=== PATIENT | female | born 1970 | race Caucasian/White ===

== ENCOUNTER 2017-09-23 17:13 | Emergency (ER) | payer BC ==
[~2017-09-23] VITALS: Ht 147.3 cm; Wt 90.7 kg
[2017-09-23 17:13] VITALS: BP_SYST 110
[2017-09-23] MEDS ORDERED: NACL 0.9% 1,000 ML IV ONE (17:36)
[2017-09-23] MEDS ORDERED: HYDROmorphone 1 MG INJ. 1 MG/ML AMPUL IM ONE (17:45)
[2017-09-23] MEDS ORDERED: ONDANSETRON HCL 4 MG/2 ML VIAL IVP ONE (17:45)
[2017-09-23 18:35] LABS: MEAN CORPUSCULAR HEMOGLOBIN 30 pg (27-31); MEAN CORPUSCULAR HGB CONC 34 % (32-36); RED CELL DISTRIBUTION WIDTH 14.9 % (9.0-15.0)
[2017-09-23 18:38] LABS: BASOPHILS # (AUTO) 0.2 K/uL (0.0-0.2); BASOPHILS % (AUTO) 1.9 % (0.0-2.0); EOSINOPHILS # (AUTO) 0.3 K/uL (0.0-0.4); HEMATOCRIT 35.3 % (36-48); LYMPHOCYTES # (AUTO) 3.5 K/uL (1.0-5.5); LYMPHOCYTES % (AUTO) 37.5 % (20.5-51.5); MEAN CORPUSCULAR VOLUME 88 fL (79.0-98.0); MONOCYTES # (AUTO) 0.7 K/uL (0.0-1.0); MONOCYTES % (AUTO) 7.5 % (1.7-9.3); NEUTROPHILS # (AUTO) 4.6 K/uL (1.8-7.7); NEUTROPHILS % (AUTO) 50.1 % (40.0-70.0); PLATELET COUNT (AUTO) 423 K/uL (130-430); RED BLOOD CELL COUNT(AUTO) 4.01 MIL/uL (4.2-6.2); WHITE BLOOD COUNT (AUTO) 9.3 K/uL (4.8-10.8)
[2017-09-23 18:42] LABS: CALCIUM 7.8 mg/dL (8.4-11.0); CREATININE 1.01 mg/dL (0.55-1.30); POTASSIUM 4.5 mmol/L (3.5-5.1)
[2017-09-23 18:44] LABS: INR 0.9 (0.8-1.2); PROTHROMBIN TIME 9.4 SECS (9.5-12.5)
[2017-09-23 18:46] LABS: ALBUMIN 3.9 g/dL (3.4-4.8); TOTAL BILIRUBIN 0.3 mg/dL (0.0-1.0)
[2017-09-23] MEDS ORDERED: IOHEXOL 100 ML IV ONE (18:47)
[2017-09-23 18:49] LABS: BILIRUBIN,URINE NEGATIVE (NEGATIVE); BLOOD, URINE TRACE (NEGATIVE); CLARITY/URINE SL CLOUDY (CLEAR); COLOR,URINE YELLOW (YELLOW); GLUCOSE,URINE NEGATIVE (NEGATIVE); KETONES,URINE NEGATIVE (NEGATIVE); LEUKOCYTE ESTERASE ,URINE 1+ (NEGATIVE); NITRITE, URINE POSITIVE (NEGATIVE); PROTEIN URINE NEGATIVE (NEGATIVE); UROBILINOGEN,URINE 0.2 (0.2-1.0)
[2017-09-23 18:54] LABS: BACTERIA,URINE MANY /HPF (None Seen); MUCUS,URINE None Seen /LPF (None Seen); RBC,URINE 0-3 /HPF (0-3); WBC,URINE 20-50 /HPF (0-3)
[2017-09-23] MEDS ORDERED: LEVOFLOXACIN 500 MG/D5W 100 ML IV ONE (19:00)
[2017-09-23] MEDS ORDERED: HYDROmorphone 1 MG INJ. 1 MG/ML AMPUL IVP ONE (19:30)
[2017-09-23 20:41] VITALS: BP_SYST 119
== END 2017-09-23 20:41 | disposition home or self-care (01) ==
LOC: SED 17:13
DX: K40.90 Unilateral inguinal hernia, without obstruction or gangrene, not specified as recurrent (principal); N30.90 Cystitis, unspecified without hematuria; F17.200 Nicotine dependence, unspecified, uncomplicated; Z71.6 Tobacco abuse counseling; Z88.1 Allergy status to other antibiotic agents; Z90.710 Acquired absence of both cervix and uterus
CPT/HCPCS: 36415; 74177; 80053; 81000; 82150; 83605; 83690; 85025; 85610; 85730; 87040; 87086; 87186; 96361; 96365; 96375; 96376; 99285; J1170; J1956; J2405; J7030; Q9967

== ENCOUNTER 2017-10-11 19:37 | Emergency (ER) | payer BC ==
[~2017-10-11] VITALS: Ht 147.3 cm; Wt 90.7 kg
[2017-10-11 19:40] VITALS: BP_SYST 122
[2017-10-11] MEDS: AMOXICILLIN 500 MG CAPSULE PO ONE (20:58)
[2017-10-11] MEDS: DIPHENHYDRAMINE INJ 50 MG/ML VIAL IM ONE (20:59)
[2017-10-11] MEDS: KETOROLAC TROMETHAMINE 30 MG VIAL IM ONE (21:00)
[2017-10-11] MEDS: MORPHINE SULFATE 10 MG/ML VIAL IM ONE (21:01)
[2017-10-11 21:39] VITALS: BP_SYST 125
== END 2017-10-11 21:39 | disposition home or self-care (01) ==
LOC: SED 19:37
DX: L60.0 Ingrowing nail (principal); F17.200 Nicotine dependence, unspecified, uncomplicated; Z71.6 Tobacco abuse counseling; Z88.1 Allergy status to other antibiotic agents
CPT/HCPCS: 96372; 99284; J1200; J1885; J2270

== ENCOUNTER 2017-10-13 12:00 | Emergency (ER) | payer BC ==
[~2017-10-13] VITALS: Ht 147.3 cm; Wt 90.7 kg
[2017-10-13 12:08] VITALS: BP_SYST 131
[2017-10-13] MEDS ORDERED: LIDOCAINE 2%, 20 ML MDV IJ ONE (12:45)
[2017-10-13 13:25] VITALS: BP_SYST 129
== END 2017-10-13 13:25 | disposition home or self-care (01) ==
LOC: SED 12:00
DX: L60.0 Ingrowing nail (principal); L03.032 Cellulitis of left toe; Z88.1 Allergy status to other antibiotic agents
CPT/HCPCS: 11730; 99283; J2001

== ENCOUNTER 2017-11-14 19:41 | Emergency (ER) | payer BC ==
[~2017-11-14] VITALS: Ht 147.3 cm; Wt 95.3 kg
[2017-11-14 20:27] VITALS: BP_SYST 137
[2017-11-14] MEDS ORDERED: ALBMDI INH (20:33)
--- NOTE | 2017-11-14 20:37 | NUR ---
PT TO WAITING ROOM WITH FAMILY, STABLE
--- NOTE | 2017-11-14 21:19 | NUR ---
pt ambulatory to bed 4
--- NOTE | 2017-11-14 21:20 | NUR ---
Patient AAOx4, ambulatory. Patient states having "redness to right hand" after a surgery that occurred approximately 2-3 weeks ago. Patient also states the antibiotics she was given "made her tongue slightly swell". Patient denies SOB. Redness noted to base of anterior right hand. Patient denies any other complaints.
--- NOTE | 2017-11-14 21:41 | NUR ---
ER Dr. Mendez at bedside examining patient.
[2017-11-14] MEDS ORDERED: HYDROcodone/ACETAMIN 5-325 MG TAB (NORCO/ VICODIN) PO ONE (22:15)
[2017-11-14] MEDS ORDERED: CLINDAMYCIN HCL 150 MG CAPSULE PO ONE (22:15)
[2017-11-14 22:40] VITALS: BP_SYST 133
--- NOTE | 2017-11-14 22:40 | NUR ---
Patient given written and verbal discharge instructions and verbalizes understanding. ER MD discussed with patient the results and treatment provided. Patient in stable condition. ID arm band removed. Rx of clindamycin and norco given. Patient educated on pain management and to follow up with PMD. Pain Scale 0/10. Opportunity for questions provided and answered.
== END 2017-11-14 21:19 | disposition home or self-care (01) ==
LOC: SED 19:41
DX: T81.4XXA Infection following a procedure, initial encounter (principal); Z88.6 Allergy status to analgesic agent
CPT/HCPCS: 99283

== ENCOUNTER 2017-12-17 18:29 | Emergency (ER) | payer BC ==
[~2017-12-17] VITALS: Ht 147.3 cm; Wt 95.3 kg
[~2017-12-17 18:29] MED LIST: ALBMDI INH
[2017-12-17 18:33] VITALS: BP_SYST 141
--- NOTE | 2017-12-17 18:40 | NUR ---
Patient to ER bed 3 to gown for evaluation. Side rails up. Report given to RENO Cyr.
--- NOTE | 2017-12-17 18:45 | NUR ---
PT AAOX4, ABLE TO VERBALIZE NEEDS. PT STATES SHE CAME IN D/T SHORTNESS OF BREATH AND MIDSTERNAL CHEST PRESSURE THAT BEGAN ON SUNDAY. PT STATES THAT SHE ALSO HAS NUMBNESS TO RIGHT ARM. PT STATES SHE HAS ALSO BEEN VOMITING EVERYDAY SINCE SUNDAY, APPROXIMATELY 2-3 TIMES PER DAY, PT DENIES NAUSEA AT THIS TIME. PT C/O 07/29 SHARP BACK PAIN WELL, STATES SHE NORMALLY TAKES PERCOCET FOR PAIN BUT HAS HAD NO RELIEF. PT USES 3L O2 AT HOME. PT PLACED ON 3L O2, STATES SHE IS STARTING TO FEEL LESS SHORTNESS OF BREATH. NO OTHER COMPLAINTS/INJURIES PER PT OR NOTED.
--- NOTE | 2017-12-17 18:50 | NUR ---
ER Dr. Reynoso at bedside examining patient.
--- NOTE | 2017-12-17 19:11 | NUR ---
ENDORSED CARE TO RYAN ADAMS
[2017-12-17 19:33] LABS: BASOPHILS # (AUTO) 0.1 K/uL (0.0-0.2); BASOPHILS % (AUTO) 0.5 % (0.0-2.0); EOSINOPHILS # (AUTO) 0.3 K/uL (0.0-0.4); EOSINOPHILS % (AUTO) 2.8 % (0.0-4.0); HEMATOCRIT 42.1 % (36-48); HEMOGLOBIN 13.5 g/dL (12.0-16.0); LYMPHOCYTES # (AUTO) 3.4 K/uL (1.0-5.5); LYMPHOCYTES % (AUTO) 29.7 % (20.5-51.5); MEAN CORPUSCULAR HEMOGLOBIN 29 pg (27-31); MEAN CORPUSCULAR HGB CONC 32 % (32-36); MEAN CORPUSCULAR VOLUME 89 fL (79.0-98.0); MONOCYTES # (AUTO) 0.9 K/uL (0.0-1.0); MONOCYTES % (AUTO) 7.9 % (1.7-9.3); NEUTROPHILS # (AUTO) 6.8 K/uL (1.8-7.7); NEUTROPHILS % (AUTO) 59.1 % (40.0-70.0); PLATELET COUNT (AUTO) 674 K/uL (130-430); RED BLOOD CELL COUNT(AUTO) 4.74 MIL/uL (4.2-6.2); RED CELL DISTRIBUTION WIDTH 14.4 % (9.0-15.0); WHITE BLOOD COUNT (AUTO) 11.5 K/uL (4.8-10.8)
[2017-12-17 19:47] LABS: CALCIUM 9.8 mg/dL (8.4-11.0); CREATININE 0.92 mg/dL (0.55-1.30); POTASSIUM 4.1 mmol/L (3.5-5.1)
[2017-12-17 19:48] LABS: INR 0.9 (0.8-1.2); PROTHROMBIN TIME 9.4 SECS (9.5-12.5)
[2017-12-17 19:52] LABS: ALBUMIN 4.8 g/dL (3.4-4.8); TOTAL BILIRUBIN 0.3 mg/dL (0.0-1.0)
[2017-12-17] MEDS ORDERED: MORPHINE SULFATE 10 MG/ML VIAL ONE (20:22)
[2017-12-17] MEDS: MORPHINE 4 MG/ML INJ. SYRINGE IVP ONE (20:23)
[2017-12-17] MEDS: DIPHENHYDRAMINE INJ 50 MG/ML VIAL IVP ONE (20:23)
--- NOTE | 2017-12-17 21:07 | NUR ---
RT at bedside to obtain ABG.
[2017-12-17] MEDS ORDERED: IOHEXOL 350 mgI/mL, 150 ML INFUS..BTL IV ONE (21:37)
[2017-12-17] MEDS: ONDANSETRON HCL 4 MG/2 ML VIAL IVP ONE (22:02)
--- NOTE | 2017-12-17 22:03 | NUR ---
Patient transpored off unit for CTA via gurney. Accompanied by radiology staff.
--- NOTE | 2017-12-17 22:12 | NUR ---
Patient returned to unit.
[2017-12-17 22:31] VITALS: BP_SYST 138
--- NOTE | 2017-12-17 22:31 | NUR ---
Patient given written and verbal discharge instructions and verbalizes understanding. ER MD discussed with patient the results and treatment provided. Patient in stable condition. ID arm band removed. IV catheter removed intact and dressing applied, no active bleeding. No Rx given. Patient educated on pain management and to follow up with PMD. Pain Scale 3/10 tolerable for patient.Opportunity for questions provided and answered.
== END 2017-12-17 22:31 | disposition home or self-care (01) ==
LOC: SED 18:29
DX: S39.012A Strain of muscle, fascia and tendon of lower back, initial encounter (principal); R09.02 Hypoxemia; Z88.6 Allergy status to analgesic agent; Z88.1 Allergy status to other antibiotic agents; X58.XXXA Exposure to other specified factors, initial encounter; Y93.89 Activity, other specified; Y92.89 Other specified places as the place of occurrence of the external cause; Y99.8 Other external cause status
CPT/HCPCS: 36415; 71045; 71275; 80053; 82803; 83880; 84484; 84703; 85025; 85379; 85610; 85730; 93005; 96374; 96375; 99285; J1200; J2270; J2405; Q9967; 36600

== ENCOUNTER 2018-03-17 19:50 | Emergency (ER) | payer BC ==
[~2018-03-17] VITALS: Ht 147.3 cm; Wt 122.5 kg
[2018-03-17 19:55] VITALS: BP_SYST 143
[2018-03-17] MEDS ORDERED: NACL 0.9% 1,000 ML IV ONE (20:14)
[2018-03-17] MEDS ORDERED: methylPREDNISolone SOD SUCC/PF 62.5 MG/ML VIAL IVP ONE (20:15)
[2018-03-17] MEDS ORDERED: CLOPIDOGREL BISULFATE 75 MG TABLET PO ONE (20:15)
[2018-03-17] MEDS ORDERED: MAGNESIUM SULFATE 50 ML IV ONE (20:15)
[2018-03-17] MEDS ORDERED: MORPHINE 4 MG/ML INJ. SYRINGE ONE ×2 (20:27→21:00)
[2018-03-17 20:30] LABS: BASOPHILS # (AUTO) 0.1 K/uL (0.0-0.2); BASOPHILS % (AUTO) 0.6 % (0.0-2.0); EOSINOPHILS # (AUTO) 0.1 K/uL (0.0-0.4); EOSINOPHILS % (AUTO) 0.8 % (0.0-4.0); HEMATOCRIT 37.8 % (36-48); HEMOGLOBIN 12.9 g/dL (12.0-16.0); LYMPHOCYTES # (AUTO) 3.3 K/uL (1.0-5.5); LYMPHOCYTES % (AUTO) 22.5 % (20.5-51.5); MEAN CORPUSCULAR HEMOGLOBIN 29 pg (27-31); MEAN CORPUSCULAR HGB CONC 34 % (32-36); MEAN CORPUSCULAR VOLUME 84 fL (79.0-98.0); MONOCYTES # (AUTO) 0.8 K/uL (0.0-1.0); MONOCYTES % (AUTO) 5.2 % (1.7-9.3); NEUTROPHILS # (AUTO) 10.2 K/uL (1.8-7.7); NEUTROPHILS % (AUTO) 70.9 % (40.0-70.0); PLATELET COUNT (AUTO) 644 K/uL (130-430); RED CELL DISTRIBUTION WIDTH 14.1 % (9.0-15.0); WHITE BLOOD COUNT (AUTO) 14.5 K/uL (4.8-10.8)
[2018-03-17] MEDS ORDERED: MORPHINE 2 MG/ML INJ. SYRINGE IVP ONE ×3 (20:30→21:45)
[2018-03-17 20:37] LABS: ANION GAP 10 (5-15); CALCIUM 8.7 mg/dL (8.4-11.0); CHLORIDE 101 mmol/L (98-107); CREATININE 0.91 mg/dL (0.55-1.30); GLUCOSE 145 mg/dL (70-99); POTASSIUM 3.8 mmol/L (3.5-5.1); SODIUM SERUM 138 mmol/L (136-145); UREA NITROGEN, BLOOD 13 mg/dL (8-21)
[2018-03-17 20:39] LABS: GFR AFRICAN AMERICAN 86 mL/min (>90)
[2018-03-17 20:46] LABS: ALANINE AMINOTRANSFERASE 48 U/L (12-78); ALBUMIN 3.7 g/dL (3.4-4.8); ASPARTATE AMINOTRANSFERASE 33 U/L (10-37); TOTAL BILIRUBIN 0.1 mg/dL (0.0-1.0)
[2018-03-17] MEDS ORDERED: PIPERACILLIN/TAZO 3.375 GM in NS 50 ML IV ONE (21:00)
[2018-03-17] MEDS ORDERED: MORPHINE 4 MG/ML INJ. SYRINGE IVP ONE (21:00)
[2018-03-17] MEDS ORDERED: PIPERACILLIN/TAZOBACTAM 3.375 GM/VIAL (ZOSYN) IV ONE (21:01)
[2018-03-17] MEDS ORDERED: LORazepam 2 MG/ML VIAL (FOR ER USE) IVP ONE (21:30)
[2018-03-17 21:58] VITALS: BP_SYST 138
== END 2018-03-17 21:58 | disposition home or self-care (01) ==
LOC: SED 19:50
DX: J18.9 Pneumonia, unspecified organism (principal); J45.909 Unspecified asthma, uncomplicated; Z88.6 Allergy status to analgesic agent; F17.200 Nicotine dependence, unspecified, uncomplicated; Z71.6 Tobacco abuse counseling; Z88.1 Allergy status to other antibiotic agents
CPT/HCPCS: 36415; 71045; 80053; 84484; 85025; 93005; 96361; 96365; 96375; 96376; 99285; J2060; J2270; J2543; J2930; J3475; J7030

== ENCOUNTER 2018-04-04 18:45 | Emergency (ER) | payer BC ==
[~2018-04-04] VITALS: Ht 147.3 cm; Wt 95.3 kg
[2018-04-04 19:18] VITALS: BP_SYST 131
[2018-04-04] MEDS: NACL 0.9% 1,000 ML IV ONE (20:25)
[2018-04-04] MEDS: MORPHINE 4 MG/ML INJ. SYRINGE IVP ONE ×2 (20:26→21:46)
[2018-04-04] MEDS: DIPHENHYDRAMINE INJ 50 MG/ML VIAL IVP ONE (20:26)
[2018-04-04] MEDS: ONDANSETRON HCL 4 MG/2 ML VIAL IVP ONE (20:26)
[2018-04-04 20:35] LABS: BASOPHILS # (AUTO) 0.1 K/uL (0.0-0.2); BASOPHILS % (AUTO) 0.6 % (0.0-2.0); EOSINOPHILS # (AUTO) 0.1 K/uL (0.0-0.4); EOSINOPHILS % (AUTO) 1.1 % (0.0-4.0); HEMATOCRIT 38.8 % (36-48); HEMOGLOBIN 12.9 g/dL (12.0-16.0); LYMPHOCYTES # (AUTO) 3.5 K/uL (1.0-5.5); LYMPHOCYTES % (AUTO) 33.5 % (20.5-51.5); MEAN CORPUSCULAR HEMOGLOBIN 29 pg (27-31); MEAN CORPUSCULAR HGB CONC 33 % (32-36); MEAN CORPUSCULAR VOLUME 87 fL (79.0-98.0); MONOCYTES # (AUTO) 0.7 K/uL (0.0-1.0); MONOCYTES % (AUTO) 6.7 % (1.7-9.3); NEUTROPHILS % (AUTO) 58.1 % (40.0-70.0); PLATELET COUNT (AUTO) 587 K/uL (130-430); RED BLOOD CELL COUNT(AUTO) 4.46 MIL/uL (4.2-6.2); RED CELL DISTRIBUTION WIDTH 15.4 % (9.0-15.0); WHITE BLOOD COUNT (AUTO) 10.4 K/uL (4.8-10.8)
[2018-04-04 20:47] LABS: INR 0.9 (0.8-1.2); PROTHROMBIN TIME 9.2 SECS (9.5-12.5)
[2018-04-04 20:48] LABS: CALCIUM 9.8 mg/dL (8.4-11.0); CREATININE 0.77 mg/dL (0.55-1.30); POTASSIUM 3.8 mmol/L (3.5-5.1)
[2018-04-04 20:51] LABS: BILIRUBIN,URINE NEGATIVE (NEGATIVE); CLARITY/URINE CLEAR (CLEAR); COLOR,URINE YELLOW (YELLOW); GLUCOSE,URINE NEGATIVE (NEGATIVE); KETONES,URINE NEGATIVE (NEGATIVE); LEUKOCYTE ESTERASE ,URINE 2+ (NEGATIVE); NITRITE, URINE NEGATIVE (NEGATIVE); PH,URINE 5.5 (5.0-8.0); PROTEIN URINE NEGATIVE (NEGATIVE); UROBILINOGEN,URINE 0.2 (0.2-1.0)
[2018-04-04 20:52] LABS: ALBUMIN 4.4 g/dL (3.4-4.8); TOTAL BILIRUBIN 0.3 mg/dL (0.0-1.0)
[2018-04-04 20:53] LABS: BLOOD, URINE TRACE (NEGATIVE)
[2018-04-04 21:08] LABS: BACTERIA,URINE FEW /HPF (None Seen); TRICHOMONAS,URINE Moderate /HPF (None Seen)
[2018-04-04] MEDS ORDERED: WELSR150 PO (21:37)
[2018-04-04] MEDS ORDERED: ALPR0.5T96 PO (21:37)
[2018-04-04] MEDS ORDERED: PARO-41 PO (21:37)
[2018-04-04] MEDS ORDERED: LEVO25TA7 PO (21:37)
[2018-04-04] MEDS ORDERED: LURA40TA PO (21:37)
[2018-04-04] MEDS ORDERED: VIS50 PO (21:37)
[2018-04-04] MEDS ORDERED: TIZA4TAB11 PO (21:37)
[2018-04-04] MEDS ORDERED: LOP600 PO (21:37)
[2018-04-04] MEDS ORDERED: OXYC-133 PO (21:37)
[2018-04-04] MEDS ORDERED: OMEP40CA33 PO (21:37)
[2018-04-04] MEDS ORDERED: NEU400 PO (21:37)
[2018-04-04] MEDS: metroNIDAZOLE 500 MG TABLET PO ONE (22:08)
[2018-04-04 23:10] VITALS: BP_SYST 130
== END 2018-04-04 23:10 | disposition home or self-care (01) ==
LOC: SED 18:45
DX: K42.9 Umbilical hernia without obstruction or gangrene (principal); A59.9 Trichomoniasis, unspecified; J45.909 Unspecified asthma, uncomplicated; E11.9 Type 2 diabetes mellitus without complications; E03.9 Hypothyroidism, unspecified; M54.9 Dorsalgia, unspecified; Z88.6 Allergy status to analgesic agent; Z88.1 Allergy status to other antibiotic agents; Z79.899 Other long term (current) drug therapy
CPT/HCPCS: 36415; 74176; 80053; 81000; 83690; 85025; 85610; 85730; 87086; 96361; 96374; 96375; 96376; 99285; J1200; J2270; J2405; J7030

== ENCOUNTER 2018-04-05 18:40 | Inpatient (IN) | payer BC ==
[~2018-04-05] VITALS: Ht 147.3 cm; Wt 99.8 kg
[~2018-04-05 18:40] MED LIST changes: +ALPR0.5T96 PO; +LEVO25TA7 PO; +LEVOFLOXACIN 500 MG/D5W 100 ML PIGGYBACK IV ONE; +LOP600 PO; +LURA40TA PO; +MIDAZOLAM HCL 5 MG/5 ML VIAL IVP ONE; +NEU400 PO; +NS IRRIG SOLN 1000 ML IR ONE; +OMEP40CA33 PO; +OXYC-133 PO; +PARO-41 PO; +PROPOFOL 200MG/ 20ML VIAL (DIPRIVAN) IV ONE; +SEVOFLURANE 15 MIN GAS INH ONE; +TIZA4TAB11 PO; +VIS50 PO; +WELSR150 PO
[2018-04-05 18:50] VITALS: BP_SYST 117
[2018-04-05] MEDS ORDERED: NACL 0.9% 1,000 ML IV ONE ×2 (19:00→20:18)
[2018-04-05 19:24] LABS: BASOPHILS # (AUTO) 0.1 K/uL (0.0-0.2); BASOPHILS % (AUTO) 0.7 % (0.0-2.0); EOSINOPHILS # (AUTO) 0.1 K/uL (0.0-0.4); EOSINOPHILS % (AUTO) 1.2 % (0.0-4.0); HEMATOCRIT 37.7 % (36-48); HEMOGLOBIN 12.5 g/dL (12.0-16.0); LYMPHOCYTES # (AUTO) 3.4 K/uL (1.0-5.5); MEAN CORPUSCULAR HEMOGLOBIN 29 pg (27-31); MEAN CORPUSCULAR HGB CONC 33 % (32-36); MEAN CORPUSCULAR VOLUME 87 fL (79.0-98.0); MONOCYTES # (AUTO) 0.6 K/uL (0.0-1.0); MONOCYTES % (AUTO) 5.4 % (1.7-9.3); NEUTROPHILS # (AUTO) 6.3 K/uL (1.8-7.7); NEUTROPHILS % (AUTO) 60.7 % (40.0-70.0); PLATELET COUNT (AUTO) 596 K/uL (130-430); RED BLOOD CELL COUNT(AUTO) 4.31 MIL/uL (4.2-6.2); RED CELL DISTRIBUTION WIDTH 15.1 % (9.0-15.0); WHITE BLOOD COUNT (AUTO) 10.5 K/uL (4.8-10.8)
[2018-04-05 19:33] LABS: CALCIUM 9.8 mg/dL (8.4-11.0); CREATININE 0.88 mg/dL (0.55-1.30); POTASSIUM 4.4 mmol/L (3.5-5.1)
[2018-04-05 19:37] LABS: ALBUMIN 4.4 g/dL (3.4-4.8); TOTAL BILIRUBIN 0.4 mg/dL (0.0-1.0)
[2018-04-05] MEDS ORDERED: LORazepam 2 MG/ML VIAL (FOR ER USE) IVP ONE (19:45)
[2018-04-05] MEDS ORDERED: levETIRAcetam 1,000 MG IV BAG 100 ML IV ONE (19:45)
[2018-04-05] MEDS ORDERED: MORPHINE 2 MG/ML INJ. SYRINGE IVP ONE ×2 (20:30→22:15)
[2018-04-05] MEDS ORDERED: ONDANSETRON HCL 4 MG/2 ML VIAL IVP ONE (20:30)
[2018-04-05] MEDS ORDERED: MORPHINE 4 MG/ML INJ. SYRINGE ONE ×2 (20:49→22:55)
[2018-04-05 20:53] LABS: BILIRUBIN,URINE NEGATIVE (NEGATIVE); BLOOD, URINE NEGATIVE (NEGATIVE); CLARITY/URINE CLEAR (CLEAR); COLOR,URINE YELLOW (YELLOW); GLUCOSE,URINE NEGATIVE (NEGATIVE); KETONES,URINE NEGATIVE (NEGATIVE); LEUKOCYTE ESTERASE ,URINE 1+ (NEGATIVE); NITRITE, URINE NEGATIVE (NEGATIVE); PH,URINE 5.5 (5.0-8.0); PROTEIN URINE NEGATIVE (NEGATIVE); UROBILINOGEN,URINE 0.2 (0.2-1.0)
[2018-04-05 21:02] LABS: BACTERIA,URINE FEW /HPF (None Seen); RBC,URINE 0-3 /HPF (0-3)
[2018-04-05] MEDS ORDERED: METOCLOPRAMIDE HCL 10 MG/2 ML VIAL IVP ONE (22:15)
[2018-04-05] MEDS ORDERED: LEVOFLOXACIN 500 MG/D5W 100 ML IV ONE (22:15)
[2018-04-05 23:12] VITALS: BP_SYST 102
[2018-04-05] MEDS ORDERED: POTASSIUM CHLORIDE 20 MEQ TAB.PRT.SR PO PRN (23:30)
[2018-04-05] MEDS ORDERED: ZOLPIDEM TARTRATE 5 MG TABLET PO PRN (23:30)
[2018-04-05] MEDS ORDERED: LORazepam 2 MG/ML VIAL IVP PRN (23:30)
[2018-04-05] MEDS ORDERED: MORPHINE 4 MG/ML INJ. SYRINGE IVP PRN (23:30)
[2018-04-05] MEDS ORDERED: DOCUSATE SODIUM 100 MG CAPSULE PO PRN (23:30)
[2018-04-05] MEDS ORDERED: MAGNESIUM SULFATE 50 ML IV PRN (23:30)
[2018-04-05] MEDS ORDERED: ACETAMINOPHEN 325 MG TABLET PO PRN (23:30)
[2018-04-05] MEDS ORDERED: MUPIROCIN 2% TOPICAL OINTMENT 22 GM NS PRN (23:30)
[2018-04-06 01:12] VITALS: BP_SYST 134
[2018-04-06] MEDS: MORPHINE 4 MG/ML INJ. SYRINGE IVP PRN ×4 (02:56→21:00)
[2018-04-06] MEDS: D5NS 1,000 ML IV SCH ×3 (04:19→20:19)
[2018-04-06 06:33] LABS: BASOPHILS # (AUTO) 0.2 K/uL (0.0-0.2); BASOPHILS % (AUTO) 1.6 % (0.0-2.0); EOSINOPHILS # (AUTO) 0.2 K/uL (0.0-0.4); EOSINOPHILS % (AUTO) 1.8 % (0.0-4.0); HEMATOCRIT 36.8 % (36-48); LYMPHOCYTES # (AUTO) 3.4 K/uL (1.0-5.5); LYMPHOCYTES % (AUTO) 34.9 % (20.5-51.5); MEAN CORPUSCULAR HEMOGLOBIN 29 pg (27-31); MEAN CORPUSCULAR HGB CONC 33 % (32-36); MONOCYTES # (AUTO) 0.6 K/uL (0.0-1.0); NEUTROPHILS # (AUTO) 5.4 K/uL (1.8-7.7); NEUTROPHILS % (AUTO) 55.7 % (40.0-70.0); PLATELET COUNT (AUTO) 589 K/uL (130-430); RED BLOOD CELL COUNT(AUTO) 4.15 MIL/uL (4.2-6.2); RED CELL DISTRIBUTION WIDTH 15.5 % (9.0-15.0); WHITE BLOOD COUNT (AUTO) 9.8 K/uL (4.8-10.8)
[2018-04-06 06:38] LABS: MEAN CORPUSCULAR VOLUME 89 fL (79.0-98.0)
[2018-04-06 06:56] LABS: CALCIUM 8.8 mg/dL (8.4-11.0); CREATININE 0.84 mg/dL (0.55-1.30); POTASSIUM 3.8 mmol/L (3.5-5.1)
[2018-04-06 08:00] VITALS: BP_SYST 112
[2018-04-06] MEDS ORDERED: ALPRAZolam 0.25 MG TABLET PO PRN (08:30)
[2018-04-06] MEDS ORDERED: ALBUTEROL SULFATE 0.083% 2.5 MG/3 ML VIAL.NEB INH PRN (08:30)
[2018-04-06] MEDS: HEPARIN SODIUM,PORCINE 5000 UNITS/ML VIAL SUBCUT SCH ×2 (09:00→20:57)
[2018-04-06] MEDS: GABAPENTIN 400 MG CAPSULE PO SCH ×4 (09:00→20:52)
[2018-04-06] MEDS ORDERED: GABAPENTIN 400 MG CAPSULE PO SCH (09:00)
[2018-04-06] MEDS: buPROPion HCL 150 MG TABLET.SA PO SCH (09:00)
[2018-04-06] MEDS: GEMFIBROZIL 600 MG TABLET (LOPID) PO SCH ×2 (09:00→20:52)
[2018-04-06] MEDS: tiZANidine HCL 4 MG TABLET PO SCH (09:00)
[2018-04-06] MEDS: OMEPRAZOLE 20 MG CAPSULE.DR (PriLOSEC) PO SCH (09:00)
[2018-04-06] MEDS: PARoxetine HCL 20 MG TABLET PO SCH ×2 (09:00→20:56)
[2018-04-06] MEDS ORDERED: GABAPENTIN 300 MG CAPSULE PO SCH (09:24)
[2018-04-06] MEDS ORDERED: LEVOTHYROXINE SODIUM 0.025 MG TABLET PO ONE (09:30)
[2018-04-06] MEDS: ONDANSETRON HCL 4 MG/2 ML VIAL IVP PRN (11:15)
[2018-04-06 11:23] LABS: PROTHROMBIN TIME 9.9 SECS (9.5-12.5)
[2018-04-06 12:30] VITALS: BP_SYST 119
[2018-04-06] MEDS ORDERED: KETOROLAC TROMETHAMINE 30 MG VIAL IVP PRN (16:45)
[2018-04-06] MEDS ORDERED: NALBUPHINE HCL 10 MG/ML AMP IVP PRN (16:45)
[2018-04-06] MEDS ORDERED: NALOXONE HCL 0.4 MG/ML AMP (NARCAN) IVP PRN ×2 (16:45)
[2018-04-06] MEDS ORDERED: fentaNYL CITRATE/PF 100 MCG/2 ML AMP IVP PRN ×2 (16:45)
[2018-04-06] MEDS ORDERED: DIPHENHYDRAMINE INJ 50 MG/ML VIAL IVP PRN (16:45)
[2018-04-06] MEDS ORDERED: ONDANSETRON HCL 4 MG/2 ML VIAL IVP PRN ×2 (16:45)
[2018-04-06] MEDS ORDERED: MORPHINE SULFATE 10MG/10ML PF AMP SP SCH (16:45)
[2018-04-06] MEDS ORDERED: KETOROLAC TROMETHAMINE 60 MG/2 ML VIAL IM PRN (16:45)
[2018-04-06] MEDS ORDERED: fentaNYL CITRATE/PF 100 MCG/2 ML AMP ONE (17:43)
[2018-04-06 19:20] VITALS: BP_SYST 101
[2018-04-06] MEDS ORDERED: NON-FORMULARY MEDICATION (Lurasidone Hcl (Latuda) 1 TAB) PO SCH (21:00)
[2018-04-07 00:35] VITALS: BP_SYST 112
[2018-04-07] MEDS: ONDANSETRON HCL 4 MG/2 ML VIAL IVP PRN (02:43)
[2018-04-07] MEDS: MORPHINE 4 MG/ML INJ. SYRINGE IVP PRN ×2 (02:50→06:37)
[2018-04-07] MEDS: D5NS 1,000 ML IV SCH (05:25)
[2018-04-07] MEDS ORDERED: LEVOTHYROXINE SODIUM 0.025 MG TABLET PO SCH (07:00)
[2018-04-07 07:08] LABS: BASOPHILS # (AUTO) 0.1 K/uL (0.0-0.2); BASOPHILS % (AUTO) 0.6 % (0.0-2.0); EOSINOPHILS # (AUTO) 0.2 K/uL (0.0-0.4); EOSINOPHILS % (AUTO) 1.3 % (0.0-4.0); HEMATOCRIT 34.9 % (36-48); HEMOGLOBIN 11.6 g/dL (12.0-16.0); LYMPHOCYTES # (AUTO) 2.4 K/uL (1.0-5.5); LYMPHOCYTES % (AUTO) 20.3 % (20.5-51.5); MEAN CORPUSCULAR HEMOGLOBIN 29 pg (27-31); MEAN CORPUSCULAR HGB CONC 33 % (32-36); MONOCYTES # (AUTO) 0.6 K/uL (0.0-1.0); MONOCYTES % (AUTO) 5.4 % (1.7-9.3); NEUTROPHILS # (AUTO) 8.4 K/uL (1.8-7.7); NEUTROPHILS % (AUTO) 72.4 % (40.0-70.0); WHITE BLOOD COUNT (AUTO) 11.7 K/uL (4.8-10.8)
[2018-04-07 07:30] LABS: CREATININE 0.74 mg/dL (0.55-1.30); POTASSIUM 3.8 mmol/L (3.5-5.1)
[2018-04-07 07:37] LABS: MEAN CORPUSCULAR VOLUME 87 fL (79.0-98.0)
[2018-04-07 08:40] VITALS: BP_SYST 110
[2018-04-07] MEDS: GABAPENTIN 400 MG CAPSULE PO SCH ×2 (09:00→09:33)
[2018-04-07] MEDS ORDERED: GABAPENTIN 300 MG CAPSULE PO SCH (09:00)
[2018-04-07] MEDS ORDERED: OXYCODONE/ACETAMINOPHEN *10*mg/325 mg TABLET PO ONE (09:30)
[2018-04-07] MEDS: OMEPRAZOLE 20 MG CAPSULE.DR (PriLOSEC) PO SCH (09:33)
[2018-04-07] MEDS: tiZANidine HCL 4 MG TABLET PO SCH (09:33)
[2018-04-07] MEDS: GEMFIBROZIL 600 MG TABLET (LOPID) PO SCH (09:34)
[2018-04-07] MEDS: buPROPion HCL 150 MG TABLET.SA PO SCH (09:34)
[2018-04-07] MEDS: PARoxetine HCL 20 MG TABLET PO SCH (09:34)
[2018-04-07] MEDS: HEPARIN SODIUM,PORCINE 5000 UNITS/ML VIAL SUBCUT SCH (09:40)
[2018-04-07] MEDS ORDERED: OXYC-133 PO (10:43)
[2018-04-07 11:26] LABS: PLATELET COUNT (AUTO) 573 K/uL (130-430)
[2018-04-07 11:28] VITALS: BP_SYST 124
[2018-04-07 12:00] VITALS: BP_SYST 108
== END 2018-04-07 12:05 | disposition home or self-care (01) | DRG 351 ==
LOC: SED 18:40 → SMU 22:17
PROVIDERS: ADMIT General Practice; ATTEND General Practice
PROC: 0YQ60ZZ Repair Left Inguinal Region, Open Approach (ICD-10-PCS; 2018-04-06)
PROC: 0WBFXZZ Excision of Abdominal Wall, External Approach (ICD-10-PCS; 2018-04-06)
PROC: 0WQF0ZZ Repair Abdominal Wall, Open Approach (ICD-10-PCS; principal; 2018-04-06 16:00)
DX: K42.9 Umbilical hernia without obstruction or gangrene (principal); Z68.42 Body mass index [BMI] 45.0-49.9, adult; E66.01 Morbid (severe) obesity due to excess calories; N39.0 Urinary tract infection, site not specified; E03.9 Hypothyroidism, unspecified; E11.9 Type 2 diabetes mellitus without complications; E78.5 Hyperlipidemia, unspecified; F17.210 Nicotine dependence, cigarettes, uncomplicated; F32.9 Major depressive disorder, single episode, unspecified; K59.00 Constipation, unspecified; K43.9 Ventral hernia without obstruction or gangrene; B07.8 Other viral warts; K40.91 Unilateral inguinal hernia, without obstruction or gangrene, recurrent; M54.9 Dorsalgia, unspecified; K21.9 Gastro-esophageal reflux disease without esophagitis; F41.9 Anxiety disorder, unspecified; G89.4 Chronic pain syndrome; J45.909 Unspecified asthma, uncomplicated; Z86.711 Personal history of pulmonary embolism; Z90.710 Acquired absence of both cervix and uterus; Z86.010 Personal history of colon polyps; Z88.1 Allergy status to other antibiotic agents; Z88.6 Allergy status to analgesic agent; Z79.899 Other long term (current) drug therapy
CPT/HCPCS: 36415; 71045; 80048; 80053; 81000-TC; 83690-TC; 83735-TC; 85025; 85610-TC; 87081; 87086; 88304; 93005; 94010; 94760; 96361; 96365; 96375; 96376; 99285; J1644; J1885; J1953; J1956; J2060; J2250; J2270; J2274; J2405; J2704; J2765; J3010; J7030; J7042

== ENCOUNTER 2018-05-06 19:17 | Inpatient (IN) | payer BC ==
[~2018-05-06] VITALS: Ht 147.3 cm; Wt 99.8 kg
[~2018-05-06 19:17] MED LIST changes: -LEVOFLOXACIN 500 MG/D5W 100 ML PIGGYBACK IV ONE; -MIDAZOLAM HCL 5 MG/5 ML VIAL IVP ONE; -NS IRRIG SOLN 1000 ML IR ONE; -PROPOFOL 200MG/ 20ML VIAL (DIPRIVAN) IV ONE; -SEVOFLURANE 15 MIN GAS INH ONE
[2018-05-06 19:27] VITALS: BP_SYST 127
[2018-05-06] MEDS ORDERED: MORPHINE 4 MG/ML INJ. SYRINGE IVP ONE ×2 (20:15→22:00)
[2018-05-06] MEDS ORDERED: NACL 0.9% 1,000 ML IV ONE ×3 (20:15→21:45)
[2018-05-06] MEDS ORDERED: ONDANSETRON HCL 4 MG/2 ML VIAL IVP ONE (20:45)
[2018-05-06 20:49] LABS: BASOPHILS # (AUTO) 0.1 K/uL (0.0-0.2); BASOPHILS % (AUTO) 0.7 % (0.0-2.0); EOSINOPHILS # (AUTO) 0.3 K/uL (0.0-0.4); EOSINOPHILS % (AUTO) 2.7 % (0.0-4.0); HEMATOCRIT 39.6 % (36-48); HEMOGLOBIN 13.1 g/dL (12.0-16.0); LYMPHOCYTES # (AUTO) 3.3 K/uL (1.0-5.5); LYMPHOCYTES % (AUTO) 28.8 % (20.5-51.5); MEAN CORPUSCULAR HEMOGLOBIN 29 pg (27-31); MEAN CORPUSCULAR HGB CONC 33 % (32-36); MEAN CORPUSCULAR VOLUME 87 fL (79.0-98.0); MONOCYTES # (AUTO) 0.7 K/uL (0.0-1.0); MONOCYTES % (AUTO) 5.9 % (1.7-9.3); NEUTROPHILS # (AUTO) 7.1 K/uL (1.8-7.7); NEUTROPHILS % (AUTO) 61.9 % (40.0-70.0); PLATELET COUNT (AUTO) 630 K/uL (130-430); RED BLOOD CELL COUNT(AUTO) 4.53 MIL/uL (4.2-6.2); RED CELL DISTRIBUTION WIDTH 15.5 % (9.0-15.0); WHITE BLOOD COUNT (AUTO) 11.5 K/uL (4.8-10.8)
[2018-05-06 20:55] LABS: BILIRUBIN,URINE NEGATIVE (NEGATIVE); CLARITY/URINE SL HAZY (CLEAR); COLOR,URINE YELLOW (YELLOW); GLUCOSE,URINE NEGATIVE (NEGATIVE); KETONES,URINE NEGATIVE (NEGATIVE); LEUKOCYTE ESTERASE ,URINE 2+ (NEGATIVE); NITRITE, URINE NEGATIVE (NEGATIVE); PROTEIN URINE NEGATIVE (NEGATIVE); UROBILINOGEN,URINE 0.2 (0.2-1.0)
[2018-05-06 20:58] LABS: BLOOD, URINE TRACE (NEGATIVE)
[2018-05-06 21:15] LABS: BACTERIA,URINE MODERATE /HPF (None Seen); WBC,URINE 20-50 /HPF (0-3)
[2018-05-06] MEDS ORDERED: KETOROLAC TROMETHAMINE 30 MG VIAL IVP ONE (21:15)
[2018-05-06 21:16] LABS: CALCIUM 8.6 mg/dL (8.4-11.0); CREATININE 0.81 mg/dL (0.55-1.30); POTASSIUM 4.2 mmol/L (3.5-5.1)
[2018-05-06 21:32] LABS: ALBUMIN 3.9 g/dL (3.4-4.8); TOTAL BILIRUBIN 0.3 mg/dL (0.0-1.0)
[2018-05-06 22:59] VITALS: BP_SYST 105
[2018-05-06] MEDS ORDERED: VANCOMYCIN HCL 1 GM/NS PREMIX 250 ML IV ONE (23:30)
[2018-05-07] MEDS ORDERED: LORazepam 2 MG/ML VIAL IM PRN (00:15)
[2018-05-07] MEDS ORDERED: TEMAZEPAM 15 MG CAPSULE PO PRN (00:15)
[2018-05-07] MEDS ORDERED: VANCOMYCIN HCL 1000 MG/VIAL IV ONE (00:47)
[2018-05-07 01:14] VITALS: BP_SYST 125
[2018-05-07] MEDS: MORPHINE 2 MG/ML INJ. SYRINGE IVP PRN ×5 (01:35→20:43)
[2018-05-07] MEDS: ONDANSETRON HCL 4 MG/2 ML VIAL IM PRN ×4 (01:36→16:42)
[2018-05-07] MEDS: LORazepam 2 MG/ML VIAL IV PRN ×2 (02:22→19:51)
[2018-05-07 08:00] VITALS: BP_SYST 107
[2018-05-07] MEDS: CIPROFLOXACIN LACT 400 MG/D5W 200 ML IV SCH ×2 (09:38→20:45)
[2018-05-07] MEDS ORDERED: ALPRAZolam 0.25 MG TABLET PO PRN (12:15)
[2018-05-07] MEDS ORDERED: INSULIN REGULAR, HUMAN 100 UNITS/ML, 10 ML VIAL (novoLIN R) SUBCUT PRN (12:15)
[2018-05-07] MEDS ORDERED: DEXTROSE 50% JECT 50 ML DISP.SYRIN IVP PRN (12:15)
[2018-05-07] MEDS ORDERED: OXYCODONE/ACETAMINOPHEN *10*mg/325 mg TABLET PO PRN (12:15)
[2018-05-07] MEDS: GABAPENTIN 400 MG CAPSULE PO SCH ×3 (12:32→20:42)
[2018-05-07 13:19] VITALS: BP_SYST 107
[2018-05-07 16:47] VITALS: BP_SYST 132
[2018-05-07 20:00] VITALS: BP_SYST 120
[2018-05-07] MEDS: GEMFIBROZIL 600 MG TABLET (LOPID) PO SCH (20:41)
[2018-05-07] MEDS: PARoxetine HCL 20 MG TABLET PO SCH (20:42)
[2018-05-07] MEDS: ONDANSETRON HCL 4 MG/2 ML VIAL IVP PRN (23:22)
[2018-05-07 23:58] VITALS: BP_SYST 108
[2018-05-08 02:37] VITALS: BP_SYST 129
[2018-05-08 05:30] VITALS: BP_SYST 122
[2018-05-08] MEDS: ONDANSETRON HCL 4 MG/2 ML VIAL IVP PRN (05:35)
[2018-05-08] MEDS: MORPHINE 2 MG/ML INJ. SYRINGE IVP PRN ×2 (05:36→12:01)
[2018-05-08] MEDS ORDERED: LEVOTHYROXINE SODIUM 0.025 MG TABLET PO SCH (06:00)
[2018-05-08] MEDS ORDERED: OMEPRAZOLE 20 MG CAPSULE.DR (PriLOSEC) PO SCH (06:30)
[2018-05-08 08:00] VITALS: BP_SYST 130
[2018-05-08] MEDS: LORazepam 2 MG/ML VIAL IV PRN (08:47)
[2018-05-08] MEDS: CIPROFLOXACIN LACT 400 MG/D5W 200 ML IV SCH (08:47)
[2018-05-08] MEDS: GEMFIBROZIL 600 MG TABLET (LOPID) PO SCH (08:48)
[2018-05-08] MEDS: PARoxetine HCL 20 MG TABLET PO SCH (08:50)
[2018-05-08] MEDS: GABAPENTIN 400 MG CAPSULE PO SCH ×2 (08:54→12:00)
[2018-05-08] MEDS ORDERED: tiZANidine HCL 4 MG TABLET PO SCH (09:00)
[2018-05-08] MEDS ORDERED: buPROPion HCL 150 MG TABLET.SA PO SCH (09:00)
[2018-05-08] MEDS ORDERED: CIPR-260 PO (11:32)
[2018-05-08 12:05] VITALS: BP_SYST 98
[2018-05-08 12:12] VITALS: BP_SYST 98
== END 2018-05-08 13:20 | disposition home or self-care (01) | DRG 394 ==
LOC: SED 19:17 → STU 22:35
PROVIDERS: ADMIT Internal Medicine Hospice and Palliative Medicine; ATTEND Internal Medicine Hospice and Palliative Medicine
DX: K40.90 Unilateral inguinal hernia, without obstruction or gangrene, not specified as recurrent (principal); N39.0 Urinary tract infection, site not specified; E11.9 Type 2 diabetes mellitus without complications; F41.9 Anxiety disorder, unspecified; I10 Essential (primary) hypertension; F32.9 Major depressive disorder, single episode, unspecified; J44.9 Chronic obstructive pulmonary disease, unspecified; K21.9 Gastro-esophageal reflux disease without esophagitis; G89.29 Other chronic pain; M54.9 Dorsalgia, unspecified; E03.9 Hypothyroidism, unspecified; R16.0 Hepatomegaly, not elsewhere classified; Z88.1 Allergy status to other antibiotic agents; Z88.6 Allergy status to analgesic agent; Z79.899 Other long term (current) drug therapy; Z86.711 Personal history of pulmonary embolism
CPT/HCPCS: 36415; 80053; 81000-TC; 81025; 82962; 83605; 85025; 87040-TC; 87081; 87086; 87186-TC; 96361; 96365; 96366; 96375; 99285; J0744; J1885; J1956; J2060; J2270; J2405; J3370; J7030; J7050

== ENCOUNTER 2018-05-12 18:17 | Emergency (ER) | payer BC ==
[~2018-05-12] VITALS: Ht 147.3 cm; Wt 99.8 kg
[~2018-05-12 18:17] MED LIST changes: +CIPR-260 PO
[2018-05-12 18:21] VITALS: BP_SYST 151
[2018-05-12] MEDS ORDERED: NACL 0.9% 1,000 ML IV ONE ×2 (19:10→20:30)
[2018-05-12] MEDS ORDERED: fentaNYL CITRATE/PF 100 MCG/2 ML AMP IVP ONE (19:15)
[2018-05-12] MEDS ORDERED: ONDANSETRON HCL 4 MG/2 ML VIAL IVP ONE (19:15)
[2018-05-12 19:27] LABS: BILIRUBIN,URINE NEGATIVE (NEGATIVE); BLOOD, URINE 1+ (NEGATIVE); CLARITY/URINE CLOUDY (CLEAR); COLOR,URINE YELLOW (YELLOW); GLUCOSE,URINE NEGATIVE (NEGATIVE); KETONES,URINE TRACE (NEGATIVE); LEUKOCYTE ESTERASE ,URINE 2+ (NEGATIVE); NITRITE, URINE NEGATIVE (NEGATIVE); PROTEIN URINE 1+ (NEGATIVE); UROBILINOGEN,URINE 0.2 (0.2-1.0)
[2018-05-12] MEDS ORDERED: DIATR MEGLU/DIATRIZ SOD 30 ML SOLUTION PO ONE (19:31)
[2018-05-12 19:38] LABS: WBC,URINE 50-80 /HPF (0-3)
[2018-05-12 19:39] LABS: BACTERIA,URINE MANY /HPF (None Seen); MUCUS,URINE None Seen /LPF (None Seen)
[2018-05-12 19:41] LABS: TRICHOMONAS,URINE Moderate /HPF (None Seen)
[2018-05-12 20:03] LABS: BASOPHILS # (AUTO) 0.1 K/uL (0.0-0.2); BASOPHILS % (AUTO) 0.6 % (0.0-2.0); EOSINOPHILS # (AUTO) 0.3 K/uL (0.0-0.4); EOSINOPHILS % (AUTO) 2.7 % (0.0-4.0); HEMATOCRIT 40.1 % (36-48); LYMPHOCYTES # (AUTO) 3.1 K/uL (1.0-5.5); MEAN CORPUSCULAR HEMOGLOBIN 28 pg (27-31); MEAN CORPUSCULAR HGB CONC 33 % (32-36); MEAN CORPUSCULAR VOLUME 87 fL (79.0-98.0); MONOCYTES # (AUTO) 0.9 K/uL (0.0-1.0); MONOCYTES % (AUTO) 8.3 % (1.7-9.3); NEUTROPHILS # (AUTO) 6.8 K/uL (1.8-7.7); NEUTROPHILS % (AUTO) 60.4 % (40.0-70.0); PLATELET COUNT (AUTO) 586 K/uL (130-430); RED BLOOD CELL COUNT(AUTO) 4.61 MIL/uL (4.2-6.2); RED CELL DISTRIBUTION WIDTH 16.2 % (9.0-15.0); WHITE BLOOD COUNT (AUTO) 11.2 K/uL (4.8-10.8)
[2018-05-12 20:14] LABS: CALCIUM 9.3 mg/dL (8.4-11.0); CREATININE 1.16 mg/dL (0.55-1.30); POTASSIUM 3.8 mmol/L (3.5-5.1)
[2018-05-12 20:18] LABS: ALBUMIN 4.2 g/dL (3.4-4.8); TOTAL BILIRUBIN 0.3 mg/dL (0.0-1.0)
[2018-05-12] MEDS ORDERED: TRELEGY PO (20:18)
[2018-05-12] MEDS ORDERED: PANTOPRAZOLE SODIUM 40 MG/VIAL (PROTONIX) IVP ONE (20:30)
[2018-05-12] MEDS ORDERED: LEVOFLOXACIN 500 MG/D5W 100 ML IV ONE (20:30)
[2018-05-12] MEDS ORDERED: METOCLOPRAMIDE HCL 10 MG/2 ML VIAL IVP ONE (20:30)
[2018-05-12] MEDS ORDERED: MORPHINE 2 MG/ML INJ. SYRINGE IVP ONE ×2 (20:30→22:00)
[2018-05-12] MEDS ORDERED: IOHEXOL 100 ML IV ONE (21:03)
[2018-05-12] MEDS ORDERED: NACL 0.9% 2,000 ML IV ONE (22:00)
[2018-05-12 22:50] VITALS: BP_SYST 106
== END 2018-05-12 22:50 | disposition home or self-care (01) ==
LOC: SED 18:17
DX: N39.0 Urinary tract infection, site not specified (principal); K46.9 Unspecified abdominal hernia without obstruction or gangrene; K59.00 Constipation, unspecified; R03.0 Elevated blood-pressure reading, without diagnosis of hypertension; J44.9 Chronic obstructive pulmonary disease, unspecified; K21.9 Gastro-esophageal reflux disease without esophagitis; E11.9 Type 2 diabetes mellitus without complications; E03.9 Hypothyroidism, unspecified; Z88.6 Allergy status to analgesic agent; Z88.1 Allergy status to other antibiotic agents; Z79.899 Other long term (current) drug therapy; Z90.710 Acquired absence of both cervix and uterus
CPT/HCPCS: 36415; 74177; 80053; 81000; 83605; 83690; 85025; 87040; 87086; 87186; 96361; 96365; 96375; 96376; 99285; C9113; J1956; J2270; J2405; J2765; J3010; J7030; Q9964; Q9967

== ENCOUNTER 2018-05-23 19:49 | Inpatient (IN) | payer BC ==
[~2018-05-23] VITALS: Ht 147.3 cm; Wt 103.9 kg
[~2018-05-23 19:49] MED LIST changes: -LOP600 PO; -TIZA4TAB11 PO; +TRELEGY PO
[2018-05-23 20:00] VITALS: BP_SYST 129
[2018-05-23] MEDS ORDERED: NACL 0.9% 1,000 ML IV ONE ×2 (20:45→21:15)
[2018-05-23] MEDS ORDERED: fentaNYL CITRATE/PF 100 MCG/2 ML AMP IVP ONE (20:45)
[2018-05-23 20:55] LABS: BILIRUBIN,URINE NEGATIVE (NEGATIVE); BLOOD, URINE NEGATIVE (NEGATIVE); CLARITY/URINE CLEAR (CLEAR); COLOR,URINE YELLOW (YELLOW); GLUCOSE,URINE NEGATIVE (NEGATIVE); KETONES,URINE NEGATIVE (NEGATIVE); LEUKOCYTE ESTERASE ,URINE 2+ (NEGATIVE); NITRITE, URINE NEGATIVE (NEGATIVE); PROTEIN URINE NEGATIVE (NEGATIVE); UROBILINOGEN,URINE 0.2 (0.2-1.0)
[2018-05-23 21:12] LABS: CALCIUM 9.3 mg/dL (8.4-11.0); CREATININE 0.95 mg/dL (0.55-1.30); POTASSIUM 3.5 mmol/L (3.5-5.1)
[2018-05-23] MEDS ORDERED: metroNIDAZOLE 500 mg/NS 100 ML IV ONE (21:15)
[2018-05-23 21:16] LABS: BACTERIA,URINE FEW /HPF (None Seen); MUCUS,URINE None Seen /LPF (None Seen); YEAST,URINE None Seen /HPF (None Seen)
[2018-05-23 21:16] LABS: ALBUMIN 3.7 g/dL (3.4-4.8); TOTAL BILIRUBIN 0.3 mg/dL (0.0-1.0)
[2018-05-23 21:30] LABS: BASOPHILS % (AUTO) 0.4 % (0.0-2.0); EOSINOPHILS # (AUTO) 0.2 K/uL (0.0-0.4); EOSINOPHILS % (AUTO) 2.2 % (0.0-4.0); HEMATOCRIT 38.3 % (36-48); HEMOGLOBIN 12.4 g/dL (12.0-16.0); LYMPHOCYTES # (AUTO) 2.8 K/uL (1.0-5.5); MEAN CORPUSCULAR HEMOGLOBIN 28 pg (27-31); MEAN CORPUSCULAR HGB CONC 32 % (32-36); MEAN CORPUSCULAR VOLUME 87 fL (79.0-98.0); MONOCYTES # (AUTO) 0.6 K/uL (0.0-1.0); MONOCYTES % (AUTO) 5.2 % (1.7-9.3); NEUTROPHILS # (AUTO) 7.3 K/uL (1.8-7.7); NEUTROPHILS % (AUTO) 66.2 % (40.0-70.0); PLATELET COUNT (AUTO) 494 K/uL (130-430); RED BLOOD CELL COUNT(AUTO) 4.38 MIL/uL (4.2-6.2); RED CELL DISTRIBUTION WIDTH 15.6 % (9.0-15.0); WHITE BLOOD COUNT (AUTO) 10.9 K/uL (4.8-10.8)
[2018-05-23] MEDS ORDERED: TIZA4TAB11 PO (21:35)
[2018-05-23] MEDS ORDERED: LOP600 PO (21:35)
[2018-05-23] MEDS ORDERED: NACL 0.9% 2,000 ML IV ONE (21:45)
[2018-05-23] MEDS ORDERED: LORazepam 2 MG/ML VIAL (FOR ER USE) IVP ONE (21:45)
[2018-05-23] MEDS: NACL 0.9% 1,000 ML IV SCH (22:15)
[2018-05-23] MEDS ORDERED: LEVOFLOXACIN 500 MG/D5W 100 ML IV ONE ×2 (22:15→22:18)
[2018-05-23 22:43] VITALS: BP_SYST 120
[2018-05-23 23:00] VITALS: BP_SYST 122
[2018-05-23] MEDS ORDERED: NITR-85 PO (23:01)
[2018-05-24] MEDS: MORPHINE 2 MG/ML INJ. SYRINGE IVP PRN ×7 (00:48→21:34)
[2018-05-24] MEDS: NACL 0.9% 1,000 ML IV SCH (06:29)
[2018-05-24 08:15] VITALS: BP_SYST 153
[2018-05-24] MEDS: LEVOFLOXACIN 500 MG/D5W 100 ML IV SCH (10:52)
[2018-05-24 12:54] VITALS: BP_SYST 117
[2018-05-24 17:26] VITALS: BP_SYST 158
[2018-05-24] MEDS ORDERED: TEMAZEPAM 15 MG CAPSULE PO PRN (22:00)
[2018-05-25] VITALS: BP_SYST 126
[2018-05-25] MEDS: MORPHINE 2 MG/ML INJ. SYRINGE IVP PRN ×3 (04:35→14:13)
[2018-05-25] MEDS: NACL 0.9% 1,000 ML IV SCH (07:50)
[2018-05-25 08:00] VITALS: BP_SYST 133
[2018-05-25] MEDS: LEVOFLOXACIN 500 MG/D5W 100 ML IV SCH (10:51)
[2018-05-25 12:00] VITALS: BP_SYST 125
[2018-05-25] MEDS ORDERED: LEVO500T20 PO (15:40)
[2018-05-25] MEDS ORDERED: LACT1CAP71 PO (15:41)
[2018-05-25 15:42] VITALS: BP_SYST 129
[2018-05-25 16:36] VITALS: BP_SYST 138
== END 2018-05-25 16:15 | disposition home or self-care (01) | DRG 690 ==
LOC: SED 19:49 → STU 22:05
PROVIDERS: ADMIT Internal Medicine Hospice and Palliative Medicine; ATTEND Internal Medicine Hospice and Palliative Medicine
DX: N39.0 Urinary tract infection, site not specified (principal); Z68.42 Body mass index [BMI] 45.0-49.9, adult; G47.30 Sleep apnea, unspecified; E66.01 Morbid (severe) obesity due to excess calories; E11.9 Type 2 diabetes mellitus without complications; K21.9 Gastro-esophageal reflux disease without esophagitis; J44.9 Chronic obstructive pulmonary disease, unspecified; E03.9 Hypothyroidism, unspecified; G89.29 Other chronic pain; M54.9 Dorsalgia, unspecified; R79.89 Other specified abnormal findings of blood chemistry; R74.0 Nonspecific elevation of levels of transaminase and lactic acid dehydrogenase [LDH]; Z88.1 Allergy status to other antibiotic agents; Z88.6 Allergy status to analgesic agent; Z87.440 Personal history of urinary (tract) infections; Z86.711 Personal history of pulmonary embolism; Z79.899 Other long term (current) drug therapy
CPT/HCPCS: 36415; 71045; 80053; 81000-TC; 83605; 85025; 87040-TC; 87081; 87086; 96361; 96365; 96367; 96375; 99285; J1956; J2060; J2270; J3010; J3490; J7030

== ENCOUNTER 2018-06-21 15:31 | Emergency (ER) | payer BC ==
[~2018-06-21] VITALS: Ht 147.3 cm; Wt 99.8 kg
[~2018-06-21 15:31] MED LIST changes: +ALPR0.5T PO; -ALPR0.5T96 PO; -CIPR-260 PO; +LACT1CAP71 PO; +LEVO500T20 PO; +LOP600 PO; +NITR-85 PO; +TIZA4TAB11 PO
[2018-06-21 15:41] VITALS: BP_SYST 126
[2018-06-21 16:46] LABS: BILIRUBIN,URINE NEGATIVE (NEGATIVE); CLARITY/URINE HAZY (CLEAR); COLOR,URINE YELLOW (YELLOW); GLUCOSE,URINE NEGATIVE (NEGATIVE); KETONES,URINE NEGATIVE (NEGATIVE); NITRITE, URINE NEGATIVE (NEGATIVE); PROTEIN URINE NEGATIVE (NEGATIVE); UROBILINOGEN,URINE 0.2 (0.2-1.0)
[2018-06-21 16:54] LABS: BLOOD, URINE TRACE (NEGATIVE); LEUKOCYTE ESTERASE ,URINE 2+ (NEGATIVE)
[2018-06-21 16:55] LABS: BACTERIA,URINE MODERATE /HPF (None Seen); WBC,URINE 20-50 /HPF (0-3)
[2018-06-21 16:56] LABS: MUCUS,URINE None Seen /LPF (None Seen)
[2018-06-21] MEDS ORDERED: SULFAMETHOXAZOLE/TRIMETHOPR DS 1 TABLET PO ONE (17:15)
[2018-06-21] MEDS ORDERED: PHENAZOPYRIDINE HCL 100 MG TABLET PO ONE (17:15)
[2018-06-21 17:40] VITALS: BP_SYST 120
== END 2018-06-21 17:40 | disposition home or self-care (01) ==
LOC: SED 15:31
DX: K46.9 Unspecified abdominal hernia without obstruction or gangrene (principal); N39.0 Urinary tract infection, site not specified; J44.9 Chronic obstructive pulmonary disease, unspecified; K21.9 Gastro-esophageal reflux disease without esophagitis; E11.9 Type 2 diabetes mellitus without complications; R03.0 Elevated blood-pressure reading, without diagnosis of hypertension; E03.9 Hypothyroidism, unspecified; Z88.6 Allergy status to analgesic agent; Z88.1 Allergy status to other antibiotic agents
CPT/HCPCS: 81000-TC; 81025; 87086; 87186-TC; 99283; 99285

== ENCOUNTER 2018-07-19 20:24 | Inpatient (IN) | payer BC ==
[~2018-07-19] VITALS: Ht 147.3 cm; Wt 97.5 kg
[2018-07-19 20:25] VITALS: BP_SYST 133
[2018-07-19] MEDS ORDERED: NACL 0.9% 1,000 ML IV ONE (20:45)
[2018-07-19 21:20] LABS: BILIRUBIN,URINE NEGATIVE (NEGATIVE); BLOOD, URINE NEGATIVE (NEGATIVE); CLARITY/URINE CLEAR (CLEAR); COLOR,URINE YELLOW (YELLOW); GLUCOSE,URINE NEGATIVE (NEGATIVE); KETONES,URINE NEGATIVE (NEGATIVE); LEUKOCYTE ESTERASE ,URINE 1+ (NEGATIVE); NITRITE, URINE NEGATIVE (NEGATIVE); PROTEIN URINE NEGATIVE (NEGATIVE); UROBILINOGEN,URINE 0.2 (0.2-1.0)
[2018-07-19 21:29] LABS: BACTERIA,URINE FEW /HPF (None Seen); RBC,URINE 0-3 /HPF (0-3)
[2018-07-19] MEDS ORDERED: LEVOFLOXACIN 500 MG/D5W 100 ML IV ONE (22:00)
[2018-07-19 22:17] LABS: CREATININE 0.92 mg/dL (0.55-1.30); HEMATOCRIT 36.7 % (36-48); HEMOGLOBIN 12.3 g/dL (12.0-16.0); MEAN CORPUSCULAR HEMOGLOBIN 29 pg (27-31); MEAN CORPUSCULAR HGB CONC 34 % (32-36); MEAN CORPUSCULAR VOLUME 86 fL (79.0-98.0); PLATELET COUNT (AUTO) 575 K/uL (130-430); POTASSIUM 3.4 mmol/L (3.5-5.1); RED BLOOD CELL COUNT(AUTO) 4.27 MIL/uL (4.2-6.2); RED CELL DISTRIBUTION WIDTH 14.2 % (9.0-15.0); WHITE BLOOD COUNT (AUTO) 12.2 K/uL (4.8-10.8)
[2018-07-19 22:21] LABS: BAND % (MANUAL) 1 % (0-6); BASOPHILS % (MANUAL) 0 % (0-2); EOSINOPHILS % (MANUAL) 1 % (0-7); LYMPHOCYTES % (MANUAL) 25 % (20-46); MONOCYTES % (MANUAL) 6 % (0-11)
[2018-07-19 22:23] LABS: ALBUMIN 3.8 g/dL (3.4-4.8); TOTAL BILIRUBIN 0.2 mg/dL (0.0-1.0)
[2018-07-19 22:26] LABS: INR 0.9 (0.8-1.2); PROTHROMBIN TIME 9.3 SECS (9.5-12.5)
[2018-07-19] MEDS ORDERED: fentaNYL CITRATE/PF 100 MCG/2 ML AMP IVP ONE (22:30)
[2018-07-19] MEDS ORDERED: NACL 0.9% 3,000 ML IV ONE (22:45)
[2018-07-19] MEDS ORDERED: LORazepam 2 MG/ML VIAL (FOR ER USE) IVP ONE (23:00)
[2018-07-19] MEDS ORDERED: ALPR1TAB2 PO (23:10)
[2018-07-19] MEDS ORDERED: VIS50 PO (23:10)
[2018-07-20] MEDS ORDERED: fentaNYL CITRATE/PF 100 MCG/2 ML AMP IVP ONE (00:30)
[2018-07-20 00:34] VITALS: BP_SYST 124
[2018-07-20] MEDS: D5NS 1,000 ML IV SCH ×2 (01:14→08:12)
[2018-07-20 02:06] VITALS: BP_SYST 124
[2018-07-20 05:40] VITALS: BP_SYST 128
[2018-07-20] MEDS ORDERED: ACETAMINOPHEN 325 MG TABLET PO PRN (05:45)
[2018-07-20] MEDS ORDERED: OXYCODONE/ACETAMINOPHEN *10*mg/325 mg TABLET PO PRN (05:45)
[2018-07-20 08:00] VITALS: BP_SYST 127
[2018-07-20] MEDS ORDERED: LEVOFLOXACIN 500 MG/D5W 100 ML IV SCH (22:00)
== END 2018-07-20 09:50 | disposition left against medical advice (07) | DRG 690 ==
LOC: SED 20:24 → SMU 23:34
PROVIDERS: ADMIT Preventive Medicine Preventive Medicine/Occupational Environmental Medicine; ATTEND Preventive Medicine Preventive Medicine/Occupational Environmental Medicine
DX: N39.0 Urinary tract infection, site not specified (principal); R55 Syncope and collapse; E03.9 Hypothyroidism, unspecified; E11.65 Type 2 diabetes mellitus with hyperglycemia; E87.6 Hypokalemia; G89.29 Other chronic pain; J44.9 Chronic obstructive pulmonary disease, unspecified; D47.3 Essential (hemorrhagic) thrombocythemia; D72.829 Elevated white blood cell count, unspecified; J45.909 Unspecified asthma, uncomplicated; F17.210 Nicotine dependence, cigarettes, uncomplicated; K21.9 Gastro-esophageal reflux disease without esophagitis; Z53.21 Procedure and treatment not carried out due to patient leaving prior to being seen by health care provider; M54.9 Dorsalgia, unspecified; Z88.6 Allergy status to analgesic agent; Z88.1 Allergy status to other antibiotic agents; Z79.899 Other long term (current) drug therapy; Z86.711 Personal history of pulmonary embolism; Z71.6 Tobacco abuse counseling
CPT/HCPCS: 36415; 70450-TC; 71045; 80053; 81000-TC; 83605; 84484; 85007; 85027; 85610-TC; 85730-TC; 87040-TC; 87086; 93005; 96361; 96365; 96375; 96376; 99285; J1956; J2060; J3010; J7030; J7042

== ENCOUNTER 2018-07-20 19:33 | Emergency (ER) | payer BC, MEDICAID ==
[~2018-07-20] VITALS: Ht 147.3 cm; Wt 97.5 kg
[~2018-07-20 19:33] MED LIST changes: -ALPR0.5T PO; +ALPR1TAB2 PO; -LEVO500T20 PO; -NITR-85 PO; -OXYC-133 PO; -TIZA4TAB11 PO
[2018-07-20 19:55] VITALS: BP_SYST 114
[2018-07-20 20:18] LABS: BILIRUBIN,URINE NEGATIVE (NEGATIVE); BLOOD, URINE NEGATIVE (NEGATIVE); CLARITY/URINE CLEAR (CLEAR); COLOR,URINE YELLOW (YELLOW); GLUCOSE,URINE NEGATIVE (NEGATIVE); KETONES,URINE NEGATIVE (NEGATIVE); LEUKOCYTE ESTERASE ,URINE TRACE (NEGATIVE); NITRITE, URINE NEGATIVE (NEGATIVE); PROTEIN URINE NEGATIVE (NEGATIVE); UROBILINOGEN,URINE 0.2 (0.2-1.0)
[2018-07-20 20:33] LABS: BACTERIA,URINE RARE /HPF (None Seen); RBC,URINE 0-3 /HPF (0-3); YEAST,URINE None Seen /HPF (None Seen)
[2018-07-20 20:34] LABS: MUCUS,URINE None Seen /LPF (None Seen)
[2018-07-20] MEDS ORDERED: MORPHINE 4 MG/ML INJ. SYRINGE IM ONE (22:00)
[2018-07-20 22:37] VITALS: BP_SYST 112
== END 2018-07-20 22:37 | disposition home or self-care (01) ==
LOC: SED 19:33
DX: T81.4XXA Infection following a procedure, initial encounter (principal); N39.0 Urinary tract infection, site not specified; R10.30 Lower abdominal pain, unspecified; J44.9 Chronic obstructive pulmonary disease, unspecified; K21.9 Gastro-esophageal reflux disease without esophagitis; E03.9 Hypothyroidism, unspecified; E11.9 Type 2 diabetes mellitus without complications; Z90.710 Acquired absence of both cervix and uterus; Z88.1 Allergy status to other antibiotic agents; Z88.6 Allergy status to analgesic agent; Z79.899 Other long term (current) drug therapy
CPT/HCPCS: 81000; 81025; 96372; 99283; J2270

== ENCOUNTER 2018-07-29 14:04 | Emergency (ER) | payer MEDICAID ==
[~2018-07-29] VITALS: Ht 147.3 cm; Wt 97.5 kg
--- NOTE | 2018-07-29 14:24 | NUR ---
Patient to ER bed 07 to gown for evaluation. Side rails up.
[2018-07-29 14:25] VITALS: BP_SYST 141
[2018-07-29] MEDS ORDERED: HYDROmorphone 1 MG INJ. 1 MG/ML AMPUL IVP ONE ×2 (14:45→17:15)
--- NOTE | 2018-07-29 14:48 | NUR ---
Pt brought by partner,A&Ox4, pt presents to ER with with abdominal pain on surgery site, pt had surgery on 07/10/18 hernia repair, c/o increase in pain, swelling and nausea, pt sergio intact on upper and lower abdomen, cap refill <3, skin pink and warm, afebrile, respirations even and unlabored, no s/s of bleeding.
--- NOTE | 2018-07-29 14:50 | NUR ---
Dr Tran at bedside examining patient
[2018-07-29] MEDS ORDERED: ONDANSETRON HCL 4 MG/2 ML VIAL IVP ONE (15:15)
--- NOTE | 2018-07-29 15:25 | NUR ---
Pt off the unit for CT.
[2018-07-29 15:30] LABS: CALCIUM 9.3 mg/dL (8.4-11.0); CREATININE 0.95 mg/dL (0.55-1.30); POTASSIUM 4.8 mmol/L (3.5-5.1)
[2018-07-29 15:31] LABS: HEMATOCRIT 38.9 % (36-48); HEMOGLOBIN 12.7 g/dL (12.0-16.0); MEAN CORPUSCULAR HEMOGLOBIN 28 pg (27-31); MEAN CORPUSCULAR HGB CONC 33 % (32-36); MEAN CORPUSCULAR VOLUME 86 fL (79.0-98.0); PLATELET COUNT (AUTO) 740 K/uL (130-430); RED BLOOD CELL COUNT(AUTO) 4.52 MIL/uL (4.2-6.2); RED CELL DISTRIBUTION WIDTH 14.2 % (9.0-15.0)
[2018-07-29 15:37] LABS: ALBUMIN 3.8 g/dL (3.4-4.8); TOTAL BILIRUBIN 0.4 mg/dL (0.0-1.0)
--- NOTE | 2018-07-29 15:56 | NUR ---
Patient complaining of pain to abdomen. Dr. Tran informed. Awaiting orders.
[2018-07-29 16:12] LABS: BAND % (MANUAL) 10 % (0-6); BASOPHILS % (MANUAL) 0 % (0-2); EOSINOPHILS % (MANUAL) 0 % (0-7); LYMPHOCYTES % (MANUAL) 15 % (20-46); MONOCYTES % (MANUAL) 5 % (0-11)
[2018-07-29] MEDS ORDERED: MORPHINE 2 MG/ML INJ. SYRINGE IVP ONE ×2 (16:15→18:45)
--- NOTE | 2018-07-29 16:20 | NUR ---
Pt medicated as ordered, well tolerated.
[2018-07-29 16:43] LABS: BILIRUBIN,URINE NEGATIVE (NEGATIVE); BLOOD, URINE NEGATIVE (NEGATIVE); CLARITY/URINE CLEAR (CLEAR); COLOR,URINE YELLOW (YELLOW); GLUCOSE,URINE NEGATIVE (NEGATIVE); KETONES,URINE TRACE (NEGATIVE); LEUKOCYTE ESTERASE ,URINE TRACE (NEGATIVE); NITRITE, URINE NEGATIVE (NEGATIVE); PROTEIN URINE TRACE (NEGATIVE); UROBILINOGEN,URINE 0.2 (0.2-1.0)
[2018-07-29 16:48] LABS: BACTERIA,URINE MODERATE /HPF (None Seen); MUCUS,URINE 2+ /LPF (None Seen); RBC,URINE 0-3 /HPF (0-3)
--- NOTE | 2018-07-29 17:00 | NUR ---
Pt states she still has abdominal pain 05/28, Dr Tran notified
--- NOTE | 2018-07-29 17:30 | NUR ---
Pt medicated as ordered with Dilaudid 1mg, will continue to monitor.
--- NOTE | 2018-07-29 18:00 | NUR ---
Dr Tran notified of pt's WBC 16.0H , HR 100, Dr Tran if patient pain level is better she will follow up with surgeon patel.
--- NOTE | 2018-07-29 18:27 | NUR ---
Toby trejo in [facility] - 07/29/[address] at [email or web address] Tran at bedside examining patient
--- NOTE | 2018-07-29 18:27 | NUR ---
Dr Tran at bedside updating patient
--- NOTE | 2018-07-29 18:30 | NUR ---
Per Dr Tran pt on stable condition to be discharge, pt will follow up with surgeon tomorrow.
[2018-07-29 18:55] VITALS: BP_SYST 128
--- NOTE | 2018-07-29 18:57 | NUR ---
Patient given written and verbal discharge instructions and verbalizes understanding. ER MD discussed with patient the results and treatment provided. Patient in stable condition. ID arm band removed. Rx of [place] given. Patient educated on pain management and to follow up with PMD. Pain Scale 2/10 tolerable for pt . Opportunity for questions provided and answered. Medication side effect fact sheet provided.
== END 2018-07-29 18:55 | disposition home or self-care (01) ==
LOC: SED 14:04
DX: G89.18 Other acute postprocedural pain (principal); R10.9 Unspecified abdominal pain; L76.34 Postprocedural seroma of skin and subcutaneous tissue following other procedure; J44.9 Chronic obstructive pulmonary disease, unspecified; E11.9 Type 2 diabetes mellitus without complications; K21.9 Gastro-esophageal reflux disease without esophagitis; Z90.710 Acquired absence of both cervix and uterus; Z79.899 Other long term (current) drug therapy; Z88.6 Allergy status to analgesic agent; Z88.1 Allergy status to other antibiotic agents
CPT/HCPCS: 36415; 74176; 80053; 81000; 83605; 85007; 85027; 87040; 87086; 96374; 96375; 96376; 99285; J1170; J2270; J2405

== ENCOUNTER 2018-08-22 09:32 | Emergency (ER) | payer MEDICAID ==
[~2018-08-22] VITALS: Ht 147.3 cm; Wt 97.5 kg
[2018-08-22 09:41] VITALS: BP_SYST 121
--- NOTE | 2018-08-22 09:46 | NUR ---
Pt placed to ER waiting room in stable condition.
--- NOTE | 2018-08-22 10:24 | NUR ---
Pt placed to ER bed 06, report given to RENO Harmon.
--- NOTE | 2018-08-22 10:30 | NUR ---
Pt presents to ER c/o R knee pain 8/10 on pain scale x 2 weeks, pt denies trauma to R knee, pt ambulatory without assistance. Pt AOX4, speaking full sentences, no signs of acute distress, denies any other complaints.
--- NOTE | 2018-08-22 11:15 | NUR ---
ER at bedside examining patient.
[2018-08-22] MEDS ORDERED: HYDROcodone/ACETAMIN 10-325 MG TAB PO ONE (11:30)
[2018-08-22 12:00] VITALS: BP_SYST 121
--- NOTE | 2018-08-22 12:00 | NUR ---
Patient given written and verbal discharge instructions and verbalizes understanding. ER MD discussed with patient the results and treatment provided. Patient in stable condition. ID arm band removed. Rx of Xanax, [place] given. Patient educated on pain management and to follow up with PMD. Pain Scale 3/10. Opportunity for questions provided and answered. Medication side effect fact sheet provided.
== END 2018-08-22 12:00 | disposition home or self-care (01) ==
LOC: SED 09:32
DX: M25.561 Pain in right knee (principal); J44.9 Chronic obstructive pulmonary disease, unspecified; R03.0 Elevated blood-pressure reading, without diagnosis of hypertension; K21.9 Gastro-esophageal reflux disease without esophagitis; E03.9 Hypothyroidism, unspecified; E11.9 Type 2 diabetes mellitus without complications; Z79.899 Other long term (current) drug therapy; Z88.1 Allergy status to other antibiotic agents; Z88.6 Allergy status to analgesic agent
CPT/HCPCS: 73560-TC; 99284

== ENCOUNTER 2018-09-18 09:37 | Emergency (ER) | payer MEDICAID ==
[~2018-09-18] VITALS: Ht 147.3 cm; Wt 96.6 kg
[2018-09-18 09:49] VITALS: BP_SYST 115
[2018-09-18] MEDS ORDERED: ACETAMINOPHEN 500 MG TABLET PO ONE (10:45)
[2018-09-18 11:30] VITALS: BP_SYST 123
== END 2018-09-18 11:30 | disposition home or self-care (01) ==
LOC: SED 09:37
DX: S93.401A Sprain of unspecified ligament of right ankle, initial encounter (principal); J44.9 Chronic obstructive pulmonary disease, unspecified; K21.9 Gastro-esophageal reflux disease without esophagitis; E03.9 Hypothyroidism, unspecified; E11.9 Type 2 diabetes mellitus without complications; Z88.1 Allergy status to other antibiotic agents; Z88.6 Allergy status to analgesic agent; F17.200 Nicotine dependence, unspecified, uncomplicated; Z71.6 Tobacco abuse counseling; W19.XXXA Unspecified fall, initial encounter; Y93.89 Activity, other specified; Y92.89 Other specified places as the place of occurrence of the external cause; Y99.8 Other external cause status
CPT/HCPCS: 99284

== ENCOUNTER 2018-09-25 11:25 | Inpatient (IN) | payer MEDICAID ==
[2018-09-25] VITALS: BP_SYST 101
[~2018-09-25] VITALS: Ht 142.2 cm; Wt 97.1 kg
[2018-09-25 11:45] VITALS: BP_SYST 101
--- NOTE | 2018-09-25 12:20 | NUR ---
BROUGHT BACK TO BED #8 VIA WHEELCHAIR, PLACED IN BED AND REPORT GIVEN TO MANUEL
[2018-09-25] MEDS ORDERED: NACL 0.9% 1,000 ML IV ONE (12:56)
[2018-09-25] MEDS ORDERED: MORPHINE 4 MG/ML INJ. SYRINGE IVP ONE (13:00)
--- NOTE | 2018-09-25 13:00 | NUR ---
ER at bedside examining patient.
--- NOTE | 2018-09-25 13:00 | NUR ---
PT AAOX4, ABLE TO VERBALIZE NEEDS. PT C/O 9/10 ABDOMINAL PAIN x1 WEEK. PT STATES SHE WAS IN ED YESTERDAY AND WAS DIAGNOSED WITH A HERNIA, SHE WAS GOING TO BE ADMITTED BUT SHE REFUSED. SHE CAME BACK TODAY D/T INCREASING PAIN.
[2018-09-25 13:39] LABS: HEMATOCRIT 40.9 % (36-48); HEMOGLOBIN 13.2 g/dL (12.0-16.0); MEAN CORPUSCULAR HEMOGLOBIN 28 pg (27-31); MEAN CORPUSCULAR HGB CONC 32 % (32-36); MEAN CORPUSCULAR VOLUME 85 fL (79.0-98.0); RED BLOOD CELL COUNT(AUTO) 4.79 MIL/uL (4.2-6.2)
[2018-09-25 13:43] LABS: WHITE BLOOD COUNT (AUTO) 12.6 K/uL (4.8-10.8)
[2018-09-25 13:46] LABS: BILIRUBIN,URINE NEGATIVE (NEGATIVE); CLARITY/URINE CLEAR (CLEAR); COLOR,URINE YELLOW (YELLOW); GLUCOSE,URINE NEGATIVE (NEGATIVE); KETONES,URINE NEGATIVE (NEGATIVE); LEUKOCYTE ESTERASE ,URINE 2+ (NEGATIVE); NITRITE, URINE NEGATIVE (NEGATIVE); PH,URINE 5.5 (5.0-8.0); PROTEIN URINE NEGATIVE (NEGATIVE); UROBILINOGEN,URINE 0.2 (0.2-1.0)
[2018-09-25 13:46] LABS: CALCIUM 9.3 mg/dL (8.4-11.0); CREATININE 0.78 mg/dL (0.55-1.30); POTASSIUM 4.5 mmol/L (3.5-5.1)
[2018-09-25 13:51] LABS: BLOOD, URINE TRACE (NEGATIVE)
[2018-09-25 14:01] LABS: ALBUMIN 4.4 g/dL (3.4-4.8); TOTAL BILIRUBIN 0.4 mg/dL (0.0-1.0)
[2018-09-25 14:09] LABS: BACTERIA,URINE MODERATE /HPF (None Seen); TRICHOMONAS,URINE Rare /HPF (None Seen)
[2018-09-25 14:13] LABS: ATYPICAL LYMPHOCYTES % 0 % (0-0); BAND % (MANUAL) 5 % (0-6); BASOPHILS % (MANUAL) 0 % (0-2); EOSINOPHILS % (MANUAL) 4 % (0-7); LYMPHOCYTES % (MANUAL) 27 % (20-46); MONOCYTES % (MANUAL) 8 % (0-11); PLATELET COUNT (AUTO) 598 K/uL (130-430)
[2018-09-25] MEDS ORDERED: DEXTROSE 50% JECT 50 ML DISP.SYRIN IVP PRN (14:15)
--- NOTE | 2018-09-25 14:28 | NUR ---
Admission: Received from ER on a gurney with the diagnosis of Abdominal pain with fluid collection, accompanied by Bryon Flores. Alert and oriented. Oriented to room routine, call light within reach. Addendum: 09/25/18 at 1516 by Rosa Win RN AMBULATED TO THE BATHROOM WITH STEADY GAIT.
--- NOTE | 2018-09-25 14:30 | NUR ---
Patient will be admitted to [facility]. Admitted to MEDSURG unit. Will go to room 119D. Belongings list completed. Summary report printed. Report will be given at bedside.
[2018-09-25 14:40] VITALS: BP_SYST 115
--- NOTE | 2018-09-25 15:00 | NUR ---
CARE ENDORSED RECEIVED REPORT FROM ADMISSION NURSE. PATIENT IS RESTING COMFORTABLY IN BED. NO S/S OF DISTRESS OR SOB. PATIENT IS COMPLAINING OF PAIN. PAIN MEDICATION TO BE ADMINISTERED. IV IS PATENT. PATIENT EDUCATED ON PLAN OF CARE. NO OTHER NEEDS AT THE TIME. CALL LIGHT IN REACH, BED IN LOWEST POSITION, AND WILL CONTINUE TO MONITOR.
--- NOTE | 2018-09-25 15:16 | NUR ---
SMOKING: Patient is a smoker, smoking consent signed by the patient.
--- NOTE | 2018-09-25 15:20 | NUR ---
Surgery consult called: for Dr. Miller, regarding abdominal pain, ordered by Dr. Severino, spoke with Margret.
[2018-09-25] MEDS: HYDROmorphone 1 MG INJ. 1 MG/ML AMPUL IVP PRN ×2 (15:41→21:44)
[2018-09-25] MEDS ORDERED: ACETAMINOPHEN 325 MG TABLET PO PRN (17:15)
[2018-09-25] MEDS ORDERED: TEMAZEPAM 15 MG CAPSULE PO PRN (17:15)
[2018-09-25] MEDS ORDERED: ONDANSETRON HCL 4 MG/2 ML VIAL IVP PRN (17:15)
[2018-09-25] MEDS ORDERED: LEVOFLOXACIN 500 MG/D5W 100 ML IV SCH (18:00)
[2018-09-25] MEDS: GABAPENTIN 300 MG CAPSULE PO SCH ×2 (18:24→21:43)
--- NOTE | 2018-09-25 18:46 | NUR ---
CLOSING NOTE: PATIENT IS RESTING COMFORTABLY IN BED. NO S/S OF DISTRESS OR SOB. PATIENT IS AWAKE AND ALERT. PATIENT REQUESTING TO GO OUTSIDE AND SMOKE. ALL NEEDS MET DURING SHIFT. CALL LIGHT IN REACH, BED IN LOWEST POSITION, AND WILL GIVE REPORT TO NIGHT NURSE.
--- NOTE | 2018-09-25 19:05 | NUR ---
OPENING NOTES Late entry due to patient care. Bedside report received from day shift nurse. Patient received sitting up in bed, watching on her phone, AOx4, complains of abdominal pain at this time, PRN medication to be administered. Breathing is even and unlabored. IVF infusing well at this time. IV site shows no signs of infection or infiltration. SCDs attached and operating. Call light with patient, instructed to call for any assistance, patient verbalized understanding. Bed alarm is off per patient's refusal, will continue to encourage throughout shift. Will continue to monitor.
[2018-09-25 20:00] VITALS: BP_SYST 112
--- NOTE | 2018-09-25 20:06 | NUR ---
CONSULTATION PAGED/CALLED Reason for Consultation: COLITIS Person Who was Notified: WANDA Consulting Physician: LJ Doughnut Batter Mixer Specialty: GI Ordering Physician: SHERIDAN
--- NOTE | 2018-09-25 20:30 | NUR ---
SMOKE Patient escorted outside by LICENSED OCCUPATIONAL THERAPY ASSISTANT, Lilliam, to smoke at this time via wheelchair.
--- NOTE | 2018-09-25 20:45 | NUR ---
ARRIVED BACK Patient arrived back to unit via wheelchair. Patient in bed, no s/s of acute distress. Breathing is even and unlabored. Call light with patient. SCDs attached and operating. Will continue to monitor.
[2018-09-25] MEDS ORDERED: NON-FORMULARY MEDICATION (Lurasidone Hcl (Latuda) 1 TAB) PO SCH (21:00)
[2018-09-25] MEDS: DOCUSATE SODIUM 250 MG CAPSULE PO SCH (21:00)
[2018-09-25] MEDS: LACTOBACILLUS RHAMNOSUS GG 1 CAP CAPSULE PO SCH (21:41)
[2018-09-25] MEDS: traZODone HCL 50 MG TABLET (DESYREL) PO SCH (21:42)
[2018-09-25] MEDS: GEMFIBROZIL 600 MG TABLET (LOPID) PO SCH (21:42)
[2018-09-25] MEDS: NITROFURANTOIN MONOHYD/M-CRYST 100 MG CAPSULE PO SCH (21:42)
[2018-09-25] MEDS: metroNIDAZOLE 250 MG TABLET PO SCH (21:43)
[2018-09-25] MEDS: PARoxetine HCL 20 MG TABLET PO SCH (21:43)
--- NOTE | 2018-09-25 22:30 | NUR ---
ROUNDS Patient in bed sleeping at this time. No signs of discomfort noted. Chest rise and fall even bilaterally. Call light with patient. Will continue to monitor.
[2018-09-26] VITALS: BP_SYST 101
--- NOTE | 2018-09-26 00:30 | NUR ---
ROUNDS Patient sleeping at this time. No s/s of acute distress. Breathing even and unlabored. Call light with patient. Will continue to monitor.
[2018-09-26] MEDS: HYDROmorphone 1 MG INJ. 1 MG/ML AMPUL IVP PRN ×6 (01:52→22:07)
--- NOTE | 2018-09-26 02:30 | NUR ---
ROUNDS Patient in bed sleeping. No signs of discomfort noted. Chest rise and fall even bilaterally. Call light with patient. Will continue to monitor.
--- NOTE | 2018-09-26 04:30 | NUR ---
ROUNDS Patient in bed sleeping at this time. No s/s of acute distress noted. Chest rise and fall even bilaterally. HOB raised. SCDs attached and operating. Call light with patient. Will continue to monitor.
[2018-09-26] MEDS: LEVOTHYROXINE SODIUM 0.025 MG TABLET PO SCH (06:04)
[2018-09-26] MEDS: INSULIN REGULAR, HUMAN 100 UNITS/ML, 10 ML VIAL (novoLIN R) SUBCUT PRN ×2 (06:04→20:53)
--- NOTE | 2018-09-26 06:30 | NUR ---
CLOSING NOTES Patient in bed awake, watching TV. No s/s of acute distress. Breathing even and unlabored. IV site is patent, no signs of infiltration or infection. SCDs removed at this time per patient's request. Skin is warm and dry to touch, BS at 124, no signs of hypoglycemia. All needs met throughout shift. Fall and safety precautions maintained throughout shift. Will continue to monitor until patient care is endorsed to oncoming day shift nurse.
--- NOTE | 2018-09-26 08:00 | NUR ---
AOx4, ambulatory. Breathing is even and unlabored. IVF infusing well at this time. IV site shows no signs of redness nor erythema. POC is discussed. Call light in place, bed locked at the lowest position, instructed to call for any assistance, patient verbalized understanding. Refuse to have the bed alarm on.
[2018-09-26 08:11] LABS: ALBUMIN 4.1 g/dL (3.4-4.8); CALCIUM 9.3 mg/dL (8.4-11.0); CREATININE 0.8 mg/dL (0.55-1.30); FREE T4 (FREE THYROXINE) 0.4 ng/dL (0.6-1.6); POTASSIUM 3.8 mmol/L (3.5-5.1); THYROID STIMULATING HORMONE 3.75 uIu/mL (0.34-4.82); TOTAL BILIRUBIN 0.4 mg/dL (0.0-1.0)
[2018-09-26 08:14] VITALS: BP_SYST 120
[2018-09-26 08:21] LABS: INR 1.1 (0.8-1.2); PROTHROMBIN TIME 9.7 SECS (9.5-12.5)
[2018-09-26 08:25] LABS: MONOCYTES # (AUTO) 0.8 K/uL (0.0-1.0); RED CELL DISTRIBUTION WIDTH 15.1 % (9.0-15.0)
[2018-09-26] MEDS: NITROFURANTOIN MONOHYD/M-CRYST 100 MG CAPSULE PO SCH ×2 (08:29→20:09)
[2018-09-26] MEDS: metroNIDAZOLE 250 MG TABLET PO SCH ×4 (08:29→20:11)
[2018-09-26] MEDS: OMEPRAZOLE 20 MG CAPSULE.DR (PriLOSEC) PO SCH (08:29)
[2018-09-26] MEDS: buPROPion HCL 150 MG TABLET.SA PO SCH (08:29)
[2018-09-26] MEDS: GEMFIBROZIL 600 MG TABLET (LOPID) PO SCH ×2 (08:30→20:11)
[2018-09-26] MEDS: PARoxetine HCL 20 MG TABLET PO SCH ×2 (08:30→20:10)
[2018-09-26] MEDS: LACTOBACILLUS RHAMNOSUS GG 1 CAP CAPSULE PO SCH ×2 (08:30→20:10)
[2018-09-26] MEDS: GABAPENTIN 300 MG CAPSULE PO SCH ×4 (08:30→20:09)
[2018-09-26 08:31] LABS: BASOPHILS % (AUTO) 0.4 % (0.0-2.0); EOSINOPHILS # (AUTO) 0.7 K/uL (0.0-0.4); HEMATOCRIT 39.7 % (36-48); HEMOGLOBIN 13.2 g/dL (12.0-16.0); LYMPHOCYTES # (AUTO) 2.8 K/uL (1.0-5.5); LYMPHOCYTES % (AUTO) 25.4 % (20.5-51.5); MEAN CORPUSCULAR HEMOGLOBIN 29 pg (27-31); MEAN CORPUSCULAR HGB CONC 33 % (32-36); MEAN CORPUSCULAR VOLUME 86 fL (79.0-98.0); MONOCYTES % (AUTO) 7.4 % (1.7-9.3); NEUTROPHILS # (AUTO) 6.6 K/uL (1.8-7.7); PLATELET COUNT (AUTO) 717 K/uL (130-430); RED BLOOD CELL COUNT(AUTO) 4.63 MIL/uL (4.2-6.2); WHITE BLOOD COUNT (AUTO) 10.9 K/uL (4.8-10.8)
[2018-09-26] MEDS: DOCUSATE SODIUM 250 MG CAPSULE PO SCH ×3 (08:43→20:23)
[2018-09-26 08:54] LABS: NEUTROPHILS % (AUTO) 60.8 % (40.0-70.0)
--- NOTE | 2018-09-26 10:15 | NUR ---
New IV started on right FA, #20, for IV contrast. Site intact and patent.
[2018-09-26] MEDS ORDERED: IOHEXOL 100 ML IV ONE (11:05)
[2018-09-26 11:33] LABS: ERYTHROCYTE SEDIMENTATION RATE 26 MM/HR (0-20)
[2018-09-26] MEDS: HYDROcodone/ACETAMIN 10-325 MG TAB PO PRN ×3 (12:22→20:21)
--- NOTE | 2018-09-26 12:23 | NUR ---
Patient is taken to CT scan and has returned. Blood sugar 113. No coverage needed.
[2018-09-26 12:36] VITALS: BP_SYST 114
--- NOTE | 2018-09-26 14:35 | NUR ---
Patient is seen by Dr. Severino. Orders were given.
--- NOTE | 2018-09-26 16:28 | NUR ---
Dr. Severino is called about urine culture's sensitivity. Orders were given.
[2018-09-26 16:49] VITALS: BP_SYST 122
--- NOTE | 2018-09-26 16:51 | NUR ---
NEWSPAPER MANAGER met with pt at bedside for Discharge and Psychosocial assessment. Pt lives at home with her of 13 years. She lives on the second floor with 13 steps to get in. Pt reports she has cane, wheelchair, and shower chair. Pt states she is independent with ADLs except for driving. Pt reports she is unemployed and spouse is in between jobs and is relying on their savings to pay bills. Pt reports history of depression and suicide attempt 2 years ago by OD, but no psych admission. Pt also reports hx of substance use and ETOH, last intake was last year and been sober since. Pt states she has a history of rehab from alcohol and cocaine 4 years ago. Pt reports depressed and anxious currently because she found out her relapsed when he found out that she is in the hospital. Pt denies S/I, H/I currently. Pt was tearful during the interaction. Pt reports seeing a therapist Camila Ashley from [place] 1x/week, and is seeing a psychiatrist at the same facility. NEWSPAPER MANAGER will remain available and follow up as needed.
--- NOTE | 2018-09-26 18:18 | NUR ---
Dr. Miller calls in and inquires about patient's current condition. Orders were given.
--- NOTE | 2018-09-26 19:20 | NUR ---
CHANGE OF SHIFT; pt. was sleeping when checked. on contact isolation for ESBL/MDRO/E. Coli of urine. in no acute distress. pt. is a smoker and endorsed that she goes out every 2 hours with ETHNIC STUDIES PROFESSOR to smoke.
--- NOTE | 2018-09-26 19:40 | NUR ---
NOTES: pt. went out to smoke on a wheelchair with MEERA Florentino.
[2018-09-26 20:00] VITALS: BP_SYST 118
--- NOTE | 2018-09-26 20:00 | NUR ---
NOTES: pt. came back to her room, called asking for pain med. informed her that I am with another pt. and will be there as soon as i am finished and verbalized understanding.
[2018-09-26] MEDS: traZODone HCL 50 MG TABLET (DESYREL) PO SCH (20:11)
--- NOTE | 2018-09-26 20:25 | NUR ---
NOTES: pt. due meds given including her pain pill with c/o lower back pain, pt. ambulating inside the room without difficulty. noted 2 IV sites on left hand and rt. forearm. on room air, no shortness of breath.
--- NOTE | 2018-09-26 20:45 | NUR ---
NOTES: pt. saying to FABRICATOR ASSEMBLER METAL PRODUCTS that she wants to shower but already medicated a lot of medication,informed to do it in am, offered hs care and given shower cap, pt. agreed. pt. needs attended.
--- NOTE | 2018-09-26 22:07 | NUR ---
NOTES: pt. medicated for c/o abdominal pain. pt. said she had another loose BM. back to bed after washing her hair with the shower cap and brushing her teeth.
--- NOTE | 2018-09-26 22:35 | NUR ---
NOTES: pt. checked and was sleeping, noted relief.
[2018-09-27] VITALS: BP_SYST 145
[2018-09-27] MEDS: HYDROcodone/ACETAMIN 10-325 MG TAB PO PRN ×3 (01:01→13:15)
--- NOTE | 2018-09-27 01:05 | NUR ---
NOTES: pt. woke up and crying for pain, not due for IV Dilaudid,wants pain pill, given Milo and sleeping pill. pt. using O2 on and off @ 2l/nc. pt. reassured.
[2018-09-27] MEDS: HYDROmorphone 1 MG INJ. 1 MG/ML AMPUL IVP PRN ×4 (02:16→14:53)
--- NOTE | 2018-09-27 02:23 | NUR ---
NOTES: medicated with IV Dilaudid for c/o abdominal pain 07/29 and kept NPO for possible surgery this am per Dr. Miller ( [facility] nurse Cortez informed me), pt. aware of it, charge nurse Laurie also informed.
--- NOTE | 2018-09-27 03:04 | NUR ---
NOTES: pre-op checklist initiated and packet for surgery.
--- NOTE | 2018-09-27 05:39 | NUR ---
NOTES: specimen for MRSA nares sent to lab per protocol. pt. awake and ambulated to the restroom. informed pt. pain med is not due yet. remain NPO.
--- NOTE | 2018-09-27 06:10 | NUR ---
NOTES: pt. medicated for c/o abdominal pain with IV Dilaudid. informed pt. to remove partial denture, jewelry and under wear before the procedure, no consent yet until MD gets here.
--- NOTE | 2018-09-27 06:30 | NUR ---
CLOSING NOTES; pt. came back from Radiology, X ray 2 views ordered. complete linen changed by MOISTURE METER READER, stained blood fro blood draw this am. observed contact isolation with ESBL urine/MDRO and E. coli. IV lock intact. for further care and assist.
[2018-09-27] MEDS: LEVOTHYROXINE SODIUM 0.025 MG TABLET PO SCH (06:46)
[2018-09-27 06:51] LABS: BASOPHILS # (AUTO) 0.1 K/uL (0.0-0.2); BASOPHILS % (AUTO) 1.4 % (0.0-2.0); EOSINOPHILS # (AUTO) 0.3 K/uL (0.0-0.4); EOSINOPHILS % (AUTO) 4.3 % (0.0-4.0); HEMATOCRIT 39.7 % (36-48); LYMPHOCYTES # (AUTO) 2.4 K/uL (1.0-5.5); LYMPHOCYTES % (AUTO) 30.6 % (20.5-51.5); MEAN CORPUSCULAR HEMOGLOBIN 26 pg (27-31); MEAN CORPUSCULAR HGB CONC 30 % (32-36); MEAN CORPUSCULAR VOLUME 85 fL (79.0-98.0); MONOCYTES # (AUTO) 0.7 K/uL (0.0-1.0); MONOCYTES % (AUTO) 8.7 % (1.7-9.3); NEUTROPHILS # (AUTO) 4.4 K/uL (1.8-7.7); PLATELET COUNT (AUTO) 542 K/uL (130-430); RED BLOOD CELL COUNT(AUTO) 4.65 MIL/uL (4.2-6.2)
[2018-09-27 06:52] LABS: INR 0.9 (0.8-1.2); PROTHROMBIN TIME 9.4 SECS (9.5-12.5)
[2018-09-27 06:58] LABS: WHITE BLOOD COUNT (AUTO) 7.9 K/uL (4.8-10.8)
[2018-09-27 07:07] LABS: CALCIUM 9.2 mg/dL (8.4-11.0); CREATININE 0.78 mg/dL (0.55-1.30); POTASSIUM 4.1 mmol/L (3.5-5.1); TOTAL BILIRUBIN 0.5 mg/dL (0.0-1.0)
--- NOTE | 2018-09-27 07:15 | NUR ---
endorsed pt. to incoming shift with nurse Berkowitz.
[2018-09-27 08:00] VITALS: BP_SYST 106
--- NOTE | 2018-09-27 08:00 | NUR ---
Opening Note/Refuse bed alarm received report from genesis mon RN, pt resting in bed, A&Ox4, respirations even and unlabored on room air, no acute distress noted, IV sites clean, dry, and intact, pt educated on use of call light and asked to call for assistance, pt verbalized understanding, call light in reach, pt educated on use of bed alarm for pt safety, pt refusing bed alarm, bed in low position, fall and aspiration precautions in place.
[2018-09-27] MEDS: NITROFURANTOIN MONOHYD/M-CRYST 100 MG CAPSULE PO SCH (08:53)
[2018-09-27] MEDS: PARoxetine HCL 20 MG TABLET PO SCH (08:53)
[2018-09-27] MEDS: GABAPENTIN 300 MG CAPSULE PO SCH ×2 (08:54→13:15)
[2018-09-27] MEDS: buPROPion HCL 150 MG TABLET.SA PO SCH (08:54)
[2018-09-27] MEDS: OMEPRAZOLE 20 MG CAPSULE.DR (PriLOSEC) PO SCH (08:54)
[2018-09-27] MEDS: metroNIDAZOLE 250 MG TABLET PO SCH (08:54)
[2018-09-27] MEDS: DOCUSATE SODIUM 250 MG CAPSULE PO SCH (08:54)
[2018-09-27] MEDS: LACTOBACILLUS RHAMNOSUS GG 1 CAP CAPSULE PO SCH (08:54)
[2018-09-27] MEDS: GEMFIBROZIL 600 MG TABLET (LOPID) PO SCH (08:54)
--- NOTE | 2018-09-27 09:07 | NUR ---
Pain Management/Medication pt complaint of pain 6/10 to lower back, pt educated on PRN pain medication and all medication use and side effects, pt verbalized understanding, tolerated medication administration well, no acute distress noted, spouse at bedside, fall, aspiration, and isolation precautions in place.
[2018-09-27] MEDS ORDERED: LEVOFLOXACIN 500 MG/D5W 100 ML IV SCH (09:30)
--- NOTE | 2018-09-27 09:45 | NUR ---
Medication pt educated on use and side effects of levaquin, pt verbalized understanding, tolerating medication administration well, no redness or swelling at IV site, no acute distress noted, fall, aspiration, and isolation precautions in place.
--- NOTE | 2018-09-27 10:28 | NUR ---
Pain Management/Medication/IV removed pt complaint of pain 07/29 to lower back and abdomen, pt educated on use and side effects of PRN pain medication, pt verbalized understanding, vital signs stable, tolerated medication administration well, no acute distress noted, pt complaint of pain at IV site to left hand, IV catheter removed, catheter intact, no bleeding, IV catheter to right forearm still in place, flushes well, no swelling or pain, pts spouse at bedside, fall, aspiration, and isolation precautions in place.
--- NOTE | 2018-09-27 10:49 | NUR ---
Nausea/Medication pt states that she had emesis x1 in the toilet, pt complaint of nausea, pt educated on use and side effects of PRN zofran, pt verbalized understanding, tolerated medication administration well, no acute distress noted, fall, aspiration, and isolation precautions in place.
--- NOTE | 2018-09-27 11:45 | NUR ---
CM DC PLANNING: REC'd ORDER FOR TERTIARY LOC TRANSFER FOR LIVER Bx. SPOKE WITH [facility]IE[facility]HILL ERVIN FOR CONTRACTED FACILITIES. MARGIE/HILL RECOMMENDED [facility], [facility], OR [facility]. SHE WILL INITIATE TRANSFER RECOMMENDATION IN SYSTEM; AND, PROVIDED WITH DR. SWARTZ's CELL # FOR MD-MD DISCUSSION. CM SPOKE WITH Pt IN ROOM. Pt REPORTED SHE HAS HAD 2 BIOPSIES OF LIVER MASS IN PAST PER RECOMMENDATION OF GI MD/DR. ELLIS AND BOTH WERE NEGATIVE. Pt ALSO STATED SHE HAS HAD THE SEROMA ASPIRATED BY SURGEON/DR. JOHNSON IN THE PAST, AND, HAD BILATERAL HERNIA REPAIRS PERFORMED, BUT LEFT SIDE IS RETURNING. Pt REQUESTING TO BE DC'd AND TO F/UP WITH ABOVE RECOMMENDATIONS OUT-Pt. Pt STATED SHE HAD DISCUSSED WITH DR. DAVALOS AND UNDERSTANDS THAT ABOVE RECOMMENDED PROCEDURES CAN BE DONE AN OUT-Pt. Pt IS NEW TO [facility]; HAS CONTRACTED MD BOOKLET AT HOME FOR OTHER SPECIALTY MD REFERRALS; AND WILL DISCUSS WITH PMD/DR. PROCTOR FOR REFERRALS TO CONTRACTED MDs FOR F/UP. Pt EDUCATED TO CONTACT [facility] NUMBER ON CARD TO REQUEST CM SERVICES TO ASSIST WITH FUTURE OUT-Pt DIAGNOSTICS; AND, TO HAVE GO TO [facility] FOR PAPERWORK TO OBTAIN CD OF ABD CT W/ & W/O CONTRAST AFTER DC. DR. SWARTZ UPDATED REGARDING ABOVE AND IS CONSIDERING IF Pt IS SAFE FOR DC HOME WITH OUT-Pt FOLLOW-UP. DR. SWARTZ ASKED TO F/UP WITH Pt's RN/MICHAELLE WHO WAS UPDATED REGARDING ABOVE. CM CALLED BACK TO [facility]ARGIE[facility] TO NOTIFY OF Pt's WISH TO DC AND FOLLOW-UP OUT-Pt VERSUS TRANSFERRING TO TERTIARY HOSPITAL FOR FURTHER EVALUATION.
--- NOTE | 2018-09-27 11:56 | NUR ---
ATTENDING MD DR SWARTZ WAS CALLED, RE: CLARIFY DISCHARGE ORDER TO ANOTHER CONTRACTED HOSP. SPOKE TO SARA
--- NOTE | 2018-09-27 11:59 | NUR ---
Blood glucose blood glucose 136, no insulin per sliding scale orders indicated, pt resting in bed, at bedside, fall, aspiration, and isolation precautions in place.
[2018-09-27 12:00] VITALS: BP_SYST 114
--- NOTE | 2018-09-27 13:16 | NUR ---
Pain Management/Medication pt complaint of pain 6/10 to back, pt educated on use and side effects of PRN pain medication, pt verbalized understanding, vital signs stable, tolerated medication administration well, no acute distress noted, at bedside, fall, aspiration, and isolation precautions in place.
--- NOTE | 2018-09-27 13:55 | NUR ---
Rounds Dr. Severino at bedside speaking with pt, per pt she had liver biopsy x2 last year and both were negative. Addendum: 09/27/18 at 1613 by Sho Lange RN add: Dr. Severino informed of positive urine culture for e-coli and ESBL.
[2018-09-27] MEDS ORDERED: NITR-85 PO (14:04)
--- NOTE | 2018-09-27 14:23 | NUR ---
Radio Assembler Note Bowen CAT SWAMPER requested CONCRETE GRINDER OPERATOR meet with patient today to determine if further support needed. CONCRETE GRINDER OPERATOR met with patient and at bedside. Patient is discharged home for follow up. Patient is in good spirits and she and stated they are coping with needed follow up and know how to make appointments. Patient did not wish to talk further and was ready for discharge.
[2018-09-27 14:37] VITALS: BP_SYST 101
--- NOTE | 2018-09-27 14:59 | NUR ---
Pain Management/Medication pt complaint of pain /10 to abdomen and back, pt educated on use and side effects of PRN pain medication, pt verbalized understanding, vital signs stable, pt tolerated medication administration well, no acute distress noted, fall, aspiration, and isolation precautions in place.
[2018-09-27 15:27] VITALS: BP_SYST 101
--- NOTE | 2018-09-27 15:42 | NUR ---
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 Pt was also seen for nutritional high risk criteria: BMI greater than 40 kg/m2. Nutrition-focused interview completed this afternoon, however pt was pending D/C home. RD offered nutrition education for diabetic diet, but pt was not interested. RD to continue to follow as per nutrition care standards.
--- NOTE | 2018-09-27 15:55 | NUR ---
Discharge orders to discharge pt home, pt provided with discharge packet and instructions, pt instructed to follow up with PCP, GI, and Dr. Brand, written prescription for macrobid provided, pt verbalized understanding, IV catheter removed, catheter intact, no bleeding, hospital ID band removed, pt stable for discharge home, vital signs stable, no acute distress noted, steady gait noted, pt accompanied by her , all belongings sent with pt, pt taken to parking lot via wheelchair.
[2018-09-28 17:33] LABS: CANCER AG, 125 11.3 U/mL (0.0-38.1)
[2018-10-01 04:39] LABS: AFP, TUMOR MARKER 5.9 ng/mL (0.0-8.3)
[2018-10-01 22:38] LABS: ANTI NUCLEAR AB WITH REFLEX Negative (Negative)
[2018-10-02 14:20] LABS: ANTI-SMOOTH MUSCLE AB 8 Units (0-19)
== END 2018-09-27 15:55 | disposition home or self-care (01) | DRG 720 ==
LOC: SED 11:25 → SMU 13:46
PROVIDERS: ADMIT Internal Medicine; ATTEND Internal Medicine
DX: A41.9 Sepsis, unspecified organism (principal); R18.8 Other ascites; K91.873 Postprocedural seroma of a digestive system organ or structure following other procedure; L02.211 Cutaneous abscess of abdominal wall; Z68.42 Body mass index [BMI] 45.0-49.9, adult; N39.0 Urinary tract infection, site not specified; E11.9 Type 2 diabetes mellitus without complications; B96.20 Unspecified Escherichia coli [E. coli] as the cause of diseases classified elsewhere; E03.9 Hypothyroidism, unspecified; E66.9 Obesity, unspecified; K52.9 Noninfective gastroenteritis and colitis, unspecified; E78.5 Hyperlipidemia, unspecified; F17.200 Nicotine dependence, unspecified, uncomplicated; J44.9 Chronic obstructive pulmonary disease, unspecified; K21.9 Gastro-esophageal reflux disease without esophagitis; K46.9 Unspecified abdominal hernia without obstruction or gangrene; K76.9 Liver disease, unspecified; Y83.8 Other surgical procedures as the cause of abnormal reaction of the patient, or of later complication, without mention of misadventure at the time of the procedure; Y73.8 Miscellaneous gastroenterology and urology devices associated with adverse incidents, not elsewhere classified; F32.9 Major depressive disorder, single episode, unspecified; F17.210 Nicotine dependence, cigarettes, uncomplicated; Z88.1 Allergy status to other antibiotic agents; Z88.8 Allergy status to other drugs, medicaments and biological substances; Y92.89 Other specified places as the place of occurrence of the external cause
CPT/HCPCS: 36415; 71046-TC; 74160-TC; 80053; 81000-TC; 81025; 82105; 82272; 82962; 83036; 83516; 83690-TC; 84439; 84443-TC; 84702-TC; 85007; 85025; 85027; 85610-TC; 85651-TC; 85730-TC; 86038; 86301; 86304; 87045-TC; 87046; 87081; 87086; 87186-TC; 89055; 93005; 96361; 96374; 99285; J1170; J1956; J2270; J2405; Q9967

== ENCOUNTER 2018-10-10 17:08 | Emergency (ER) | payer MEDICAID ==
[~2018-10-10] VITALS: Ht 147.3 cm; Wt 95.3 kg
[~2018-10-10 17:08] MED LIST changes: -ALBMDI INH; -ALPR1TAB2 PO; +NITR-85 PO
[2018-10-10 17:15] VITALS: BP_SYST 119
[2018-10-10] MEDS ORDERED: BACITRACIN 1 GM OINT TP ONE (18:20)
[2018-10-10 18:22] VITALS: BP_SYST 119
[2018-10-10] MEDS ORDERED: HYDROcodone/ACETAMIN 5-325 MG TAB (NORCO/ VICODIN) PO ONE (18:30)
== END 2018-10-10 18:30 | disposition home or self-care (01) ==
LOC: SED 17:08
DX: S90.121A Contusion of right lesser toe(s) without damage to nail, initial encounter (principal); L03.031 Cellulitis of right toe; J44.9 Chronic obstructive pulmonary disease, unspecified; K21.9 Gastro-esophageal reflux disease without esophagitis; E11.9 Type 2 diabetes mellitus without complications; E03.9 Hypothyroidism, unspecified; Z90.710 Acquired absence of both cervix and uterus; Z88.1 Allergy status to other antibiotic agents; Z88.6 Allergy status to analgesic agent; Z79.899 Other long term (current) drug therapy; X58.XXXA Exposure to other specified factors, initial encounter; Y93.89 Activity, other specified; Y92.89 Other specified places as the place of occurrence of the external cause; Y99.8 Other external cause status
CPT/HCPCS: 99283

== ENCOUNTER 2018-10-16 11:26 | Emergency (ER) | payer MEDICAID ==
[~2018-10-16] VITALS: Ht 147.3 cm; Wt 95.3 kg
[2018-10-16 11:26] VITALS: BP_SYST 104
[2018-10-16] MEDS: fentaNYL CITRATE/PF 100 MCG/2 ML AMP IVP ONE (12:08)
[2018-10-16] MEDS: MORPHINE 4 MG/ML INJ. SYRINGE IVP ONE (12:56)
[2018-10-16 13:30] VITALS: BP_SYST 104
== END 2018-10-16 13:30 | disposition home or self-care (01) ==
LOC: SED 11:26
DX: K46.9 Unspecified abdominal hernia without obstruction or gangrene (principal); K21.9 Gastro-esophageal reflux disease without esophagitis; E03.9 Hypothyroidism, unspecified; J44.9 Chronic obstructive pulmonary disease, unspecified; E11.9 Type 2 diabetes mellitus without complications; Z90.710 Acquired absence of both cervix and uterus; Z88.1 Allergy status to other antibiotic agents; Z88.6 Allergy status to analgesic agent; Z79.899 Other long term (current) drug therapy
CPT/HCPCS: 81025; 96374; 96375; 99283; J2270; J3010

== ENCOUNTER 2018-10-25 22:55 | Inpatient (IN) | payer MEDICAID ==
[~2018-10-25] VITALS: Ht 147.3 cm; Wt 97.5 kg
--- NOTE | 2018-10-25 23:14 | NUR ---
Note neil in EDM - 10/26/18 at 0019 by [email or web address] # 14 FR In and Out catheter with use of sterile technique. Immediate return of urine noted. Urine sample collected and sent to lab. Pt tolerated procedure well. Per Patient unable to toilet self for the last two days.
[2018-10-25 23:20] VITALS: BP_SYST 108
--- NOTE | 2018-10-25 23:20 | NUR ---
Patient to ER bed 02 to gown for evaluation. Side rails up.
--- NOTE | 2018-10-25 23:25 | NUR ---
#14 FR In and Out catheter with use of sterile technique. Immediate return of 300 ml yellow urine noted. Urine sample collected and sent to lab. Pt tolerated procedure well. Per Patient unable to void for the last two days.
--- NOTE | 2018-10-25 23:30 | NUR ---
Pt AAOx4 and brought into ER bed two via wheelchair. Pt states LLQ abd that has been gradually worsening over the past two days. Pt denies taking any medication for pain. Per pt she has not been able to void or pass stool for the past two days as well. Pt also states + n/v. Will continue to monitor pt.
--- NOTE | 2018-10-26 00:15 | NUR ---
ER at bedside examining patient.
[2018-10-26 00:18] LABS: BILIRUBIN,URINE NEGATIVE (NEGATIVE); BLOOD, URINE NEGATIVE (NEGATIVE); CLARITY/URINE CLEAR (CLEAR); COLOR,URINE YELLOW (YELLOW); GLUCOSE,URINE NEGATIVE (NEGATIVE); KETONES,URINE NEGATIVE (NEGATIVE); LEUKOCYTE ESTERASE ,URINE TRACE (NEGATIVE); NITRITE, URINE NEGATIVE (NEGATIVE); PROTEIN URINE NEGATIVE (NEGATIVE); UROBILINOGEN,URINE 0.2 (0.2-1.0)
[2018-10-26 00:27] LABS: BACTERIA,URINE FEW /HPF (None Seen); RBC,URINE 0-3 /HPF (0-3)
[2018-10-26] MEDS ORDERED: NACL 0.9% 1,000 ML IV ONE (00:27)
[2018-10-26] MEDS ORDERED: MORPHINE 4 MG/ML INJ. SYRINGE IVP ONE ×2 (00:30→01:45)
[2018-10-26] MEDS ORDERED: ONDANSETRON HCL 4 MG/2 ML VIAL IVP ONE ×2 (00:30→15:00)
[2018-10-26] MEDS ORDERED: DIPHENHYDRAMINE INJ 50 MG/ML VIAL IVP ONE ×2 (00:30→01:45)
--- NOTE | 2018-10-26 01:00 | NUR ---
# 22 gauge angiocath placed to LAC. Use of asceptic technique. Opsite placed over site. Blood return noted. Flushed with 10 cc of normal saline. No evidence of infiltration noted. Patient tolerated well.
[2018-10-26 01:04] LABS: BASOPHILS # (AUTO) 0.2 K/uL (0.0-0.2); BASOPHILS % (AUTO) 1.5 % (0.0-2.0); EOSINOPHILS # (AUTO) 0.3 K/uL (0.0-0.4); EOSINOPHILS % (AUTO) 2.2 % (0.0-4.0); HEMATOCRIT 37.9 % (36-48); HEMOGLOBIN 11.9 g/dL (12.0-16.0); LYMPHOCYTES # (AUTO) 2.6 K/uL (1.0-5.5); LYMPHOCYTES % (AUTO) 22.5 % (20.5-51.5); MEAN CORPUSCULAR HEMOGLOBIN 27 pg (27-31); MEAN CORPUSCULAR HGB CONC 31 % (32-36); MEAN CORPUSCULAR VOLUME 86 fL (79.0-98.0); MONOCYTES # (AUTO) 0.7 K/uL (0.0-1.0); NEUTROPHILS # (AUTO) 7.6 K/uL (1.8-7.7); NEUTROPHILS % (AUTO) 67.8 % (40.0-70.0); PLATELET COUNT (AUTO) 520 K/uL (130-430); RED BLOOD CELL COUNT(AUTO) 4.41 MIL/uL (4.2-6.2); RED CELL DISTRIBUTION WIDTH 14.6 % (9.0-15.0); WHITE BLOOD COUNT (AUTO) 11.4 K/uL (4.8-10.8)
[2018-10-26 01:05] LABS: CALCIUM 8.2 mg/dL (8.4-11.0); CREATININE 1.09 mg/dL (0.55-1.30); POTASSIUM 3.4 mmol/L (3.5-5.1)
[2018-10-26 01:10] LABS: ALBUMIN 3.7 g/dL (3.4-4.8); TOTAL BILIRUBIN 0.3 mg/dL (0.0-1.0)
--- NOTE | 2018-10-26 01:30 | NUR ---
Pt tried to void at this time. Per pt she is still unable to void, except for a few drops. Will continue to monitor pt.
[2018-10-26] MEDS ORDERED: PERC10 GT (02:25)
[2018-10-26] MEDS ORDERED: ACETAMINOPHEN 325 MG TABLET PO PRN (02:30)
[2018-10-26] MEDS ORDERED: ONDANSETRON HCL 4 MG/2 ML VIAL IVP PRN (02:30)
--- NOTE | 2018-10-26 03:00 | NUR ---
Patient will be admitted to care of Dr. Scott. Admitted to Medsurg unit. Will go to room 106B. Belongings list completed. Summary report printed. Per pt she is a full code. Report will be given at bedside.
--- NOTE | 2018-10-26 03:00 | NUR ---
ADMIT NOTE Received pt from ER to the floor with a diagnosis of ABDOMINAL PAIN. Admission process initiated. patient oriented to pain management, safety and call light-teach back done.
[2018-10-26 03:41] VITALS: BP_SYST 97
[2018-10-26] MEDS: MORPHINE 4 MG/ML INJ. SYRINGE IVP PRN ×5 (03:41→22:44)
[2018-10-26] MEDS: NACL 0.9% 1,000 ML IV SCH ×2 (03:53→17:12)
[2018-10-26] MEDS ORDERED: AMPICILLIN SODIUM/SULBACTAM NA 3 GM VIAL IV SCH (06:00)
[2018-10-26] MEDS ORDERED: AMPICILLIN SODIUM 1 GM in NS 50 ML IV SCH (06:00)
[2018-10-26] MEDS ORDERED: AMPICILLIN SODIUM/SULBACTAM NA 3 GM in NS 100 ML IV SCH (06:00)
[2018-10-26] MEDS ORDERED: AMPICILLIN SODIUM/SULBACTAM NA 3 GM VIAL ONE (06:19)
--- NOTE | 2018-10-26 06:26 | NUR ---
CONSULT CONSULT CALLED FOR DR. DAVALOS I SPOKE WITH FLACO SIFUENTES REASON FOR CONSULT: ABD PAIN REQUESTING CONSULT: DR. GWEN ERWIN PIECE WORKER PHONE NUMBER: [phone]
--- NOTE | 2018-10-26 06:45 | NUR ---
pt.received via the er-dept.pt.admitted w/co abdomen pain,nausea. consult:re;possible surgery consult called this am.pt,.had c/o pain,nausea upon arrival.i have administered morphine;4mg ivp? zofran:4mg ivp.i i have initiated the iv fluids;ns@100ml/hr.pt.presents general status stable.respiratory status stable@room air.i witness the pt.signing the smoking waiver/the belongings list.unasyn initial dose;abx.ivpb administered this am:0600a dose per jorge luis.call light/telephone placed w/in the pt's reach,.
[2018-10-26] MEDS: AMPICILLIN SODIUM/SULBACTAM NA 3 GM in NS 100 ML IV SCH ×3 (06:50→17:15)
[2018-10-26 07:05] LABS: HEMOGLOBIN 12.2 g/dL (12.0-16.0); RED BLOOD CELL COUNT(AUTO) 4.33 MIL/uL (4.2-6.2); WHITE BLOOD COUNT (AUTO) 11.4 K/uL (4.8-10.8)
[2018-10-26 07:06] LABS: BASOPHILS # (AUTO) 0.1 K/uL (0.0-0.2); BASOPHILS % (AUTO) 0.7 % (0.0-2.0); EOSINOPHILS # (AUTO) 0.3 K/uL (0.0-0.4); EOSINOPHILS % (AUTO) 2.5 % (0.0-4.0); HEMATOCRIT 36.8 % (36-48); LYMPHOCYTES # (AUTO) 3.2 K/uL (1.0-5.5); LYMPHOCYTES % (AUTO) 27.6 % (20.5-51.5); MEAN CORPUSCULAR HEMOGLOBIN 28 pg (27-31); MEAN CORPUSCULAR HGB CONC 33 % (32-36); MEAN CORPUSCULAR VOLUME 85 fL (79.0-98.0); MONOCYTES # (AUTO) 0.6 K/uL (0.0-1.0); MONOCYTES % (AUTO) 5.5 % (1.7-9.3); NEUTROPHILS # (AUTO) 7.2 K/uL (1.8-7.7); NEUTROPHILS % (AUTO) 63.7 % (40.0-70.0); PLATELET COUNT (AUTO) 505 K/uL (130-430); RED CELL DISTRIBUTION WIDTH 14.8 % (9.0-15.0)
[2018-10-26 07:12] LABS: CALCIUM 8.2 mg/dL (8.4-11.0)
[2018-10-26 07:21] LABS: ALBUMIN 3.6 g/dL (3.4-4.8); TOTAL BILIRUBIN 0.2 mg/dL (0.0-1.0)
[2018-10-26 08:00] VITALS: BP_SYST 96
[2018-10-26] MEDS: GEMFIBROZIL 600 MG TABLET (LOPID) PO SCH (08:11)
[2018-10-26] MEDS: GABAPENTIN 300 MG CAPSULE PO SCH ×4 (08:11→22:40)
--- NOTE | 2018-10-26 08:20 | NUR ---
OPENING NOTES, RECEIVED PT IN BED, PT IS AAOX4, C/O ABD PAIN, PT AWARE THAT PAIN MED IS NOT DUE YET. WILL GIVE PAIN MED. NO SOB, NO DISTRESS. PT IS AFEBRILE. PT AMBULATES IN THE ROOM. IV FLUIDS INFUSING WELL. IV SITE HAS NO S/S OF INFILTRATION. SAFETY PRECAUTION IN PLACE. CALL LIGHT IN REACH, BED IN LOW POSITION . WILL CONT TO MONITOR.
[2018-10-26] MEDS ORDERED: PANTOPRAZOLE SODIUM 40 MG/VIAL (PROTONIX) IVP SCH (09:00)
[2018-10-26 12:00] VITALS: BP_SYST 98
--- NOTE | 2018-10-26 12:35 | NUR ---
PT GIVEN MORPHINE FOR PAIN OF 7-8. PT EDUCATED ON THE EFFECTS AND SIDE EFFECTS OF MORPHINE, ENCOURAGE TO CALL FOR ASSIST TO BATHROOM TO PREVENT FALL.
[2018-10-26] MEDS: ENOXAPARIN SODIUM 40 MG/0.4 ML SYRINGE SUBCUT SCH (12:40)
[2018-10-26] MEDS: PAROXETINE HCL 10 MG TABLET PO SCH ×2 (12:50→22:42)
[2018-10-26] MEDS: OXYCODONE/ACETAMINOPHEN 5-325 TABLET PO PRN ×2 (13:10→18:07)
[2018-10-26] MEDS ORDERED: PROPOFOL 200MG/ 20ML VIAL (DIPRIVAN) IV ONE (15:00)
[2018-10-26] MEDS ORDERED: BUPIVACAINE LIPOSOME/PF 266 MG/20 ML VIAL INFIL ONE (15:00)
[2018-10-26] MEDS ORDERED: NS 1000 ML IV.SOLN IV ONE (15:00)
[2018-10-26] MEDS ORDERED: LR 1,000 ML IV.SOLN IV ONE (15:00)
[2018-10-26] MEDS ORDERED: fentaNYL CITRATE 250 MCG/5 ML AMP IV ONE (15:00)
[2018-10-26] MEDS ORDERED: MIDAZOLAM HCL 5 MG/5 ML VIAL IVP ONE (15:00)
[2018-10-26] MEDS ORDERED: ROCURONIUM BROMIDE 10 MG/ML (ZEMURON) IV ONE (15:00)
[2018-10-26] MEDS ORDERED: NS 50 ML BAG IV ONE (15:00)
[2018-10-26] MEDS ORDERED: SEVOFLURANE 15 MIN GAS INH ONE (15:00)
[2018-10-26] MEDS ORDERED: DEXAMETHASONE SOD PHOSPHATE 4 MG/ML VIAL IVP ONE (15:00)
[2018-10-26 17:07] VITALS: BP_SYST 94
--- NOTE | 2018-10-26 17:11 | NUR ---
PT GIVEN MORPHINE FOR PAIN OF 7-8/ 10. PT EDUCATED TO CALL FOR ASSIST TO PREVENT FALL.
--- NOTE | 2018-10-26 18:52 | NUR ---
CLOSING NOTES, PT HAS COMPLAINED OF PAIN THE WHOLE SHIFT, GIVEN IV AND PO PAIN MEDS PRN, PT NOW ON CLEAR LIQUIDS, REQUEST FOR MEDICAL INFORMATION FAXED TO [facility] PER DR DAVALOS. IV ACCESS INTACT AND PATENT. IV FLUIDS INFUSING WELL. WILL ENDORSE TO NIGHT RN.
--- NOTE | 2018-10-26 20:00 | NUR ---
INITIAL NOTES: PATIENT IN BED AWAKE ORIENTED X4. WATCHING TV SHOWS. HAS TOLERABLE ABDOMINAL PAIN NEEDING PAIN MEDS SOON .DENIES SOB. IVF INFUSING FOR HYDRATION, SITE CLEAR.DRINKING SODA WELL. EDUCATED ON SAFETY PRECAUTION BY CALLING EVERY TIME GOES TO BATHROOM USING CALL LIGHT WHICH IS WITHIN REACH. BED IN LOW POSITION. VITAL SIGNS TAKEN. WILL MONITOR CLOSELY.
--- NOTE | 2018-10-26 22:30 | NUR ---
MEDS ADMIN: DUE ALL MEDS GIVEN WITHOUT DIFFICULTY.
[2018-10-27] MEDS: AMPICILLIN SODIUM/SULBACTAM NA 3 GM in NS 100 ML IV SCH ×4 (00:05→17:22)
[2018-10-27 00:24] VITALS: BP_SYST 121
--- NOTE | 2018-10-27 00:30 | NUR ---
ROUNDS: PATIENT RESTING QUITELY WITH EYES CLOSE SNORING AFTER PAIN MEDS GIVEN. SELF TURN.
[2018-10-27] MEDS: NACL 0.9% 1,000 ML IV SCH ×3 (04:32→18:30)
[2018-10-27 04:40] VITALS: BP_SYST 104
--- NOTE | 2018-10-27 04:45 | NUR ---
PUFFY EYES: PATIENT NOTED BOTH EYELIDS ARE PUFFY WHICH SHE HAD IT AT HOME BEFORE ADMITTED. POSSIBLY FROM LAYING SUPINE DURING THE NIGHT. WILL MONITOR.
[2018-10-27] MEDS: MORPHINE 4 MG/ML INJ. SYRINGE IVP PRN ×5 (04:48→22:32)
--- NOTE | 2018-10-27 04:50 | NUR ---
PAIN: PATIENT COMPLAIN OF ABDOMINAL PAIN,LEVEL 8/10 AFTER COMMING FROM BATHROOM TO VOID. BP 104/61. MORPHINE 4MG IV GIVEN.
[2018-10-27] MEDS: OXYCODONE/ACETAMINOPHEN 5-325 TABLET PO PRN (06:36)
[2018-10-27] MEDS: LEVOTHYROXINE SODIUM 0.025 MG TABLET PO SCH (06:36)
--- NOTE | 2018-10-27 07:00 | NUR ---
CLOSING: ALL NEEDS WERE ATTENDED. RESTING QUIETELY. IVF INFUSING WELL. NO ACUTE DISTRESS. SAFETY MEASURES OBSERVED DURING THE SHIFT.
[2018-10-27 07:12] LABS: BASOPHILS # (AUTO) 0.1 K/uL (0.0-0.2); EOSINOPHILS # (AUTO) 0.4 K/uL (0.0-0.4); EOSINOPHILS % (AUTO) 4.5 % (0.0-4.0); HEMATOCRIT 36.8 % (36-48); HEMOGLOBIN 12.1 g/dL (12.0-16.0); LYMPHOCYTES # (AUTO) 2.3 K/uL (1.0-5.5); MEAN CORPUSCULAR HEMOGLOBIN 28 pg (27-31); MEAN CORPUSCULAR HGB CONC 33 % (32-36); MEAN CORPUSCULAR VOLUME 85 fL (79.0-98.0); MONOCYTES # (AUTO) 0.7 K/uL (0.0-1.0); NEUTROPHILS # (AUTO) 5.2 K/uL (1.8-7.7); NEUTROPHILS % (AUTO) 60.5 % (40.0-70.0); PLATELET COUNT (AUTO) 473 K/uL (130-430); RED BLOOD CELL COUNT(AUTO) 4.34 MIL/uL (4.2-6.2); RED CELL DISTRIBUTION WIDTH 14.9 % (9.0-15.0); WHITE BLOOD COUNT (AUTO) 8.7 K/uL (4.8-10.8)
[2018-10-27 07:30] VITALS: BP_SYST 116
--- NOTE | 2018-10-27 07:30 | NUR ---
Opening notes, received pt in bed, pt is aaox4, denies pain, no sob, no resp distress. vitals wnl, pt is afebrile. iv fluids infusing well. iv access has no s/s of infiltration. safety precaution kept in place. call light in easy reach, pt encouraged to call for assist and pain med. will cont to monitor.
[2018-10-27 07:40] LABS: ALBUMIN 3.4 g/dL (3.4-4.8); CALCIUM 8.5 mg/dL (8.4-11.0); CREATININE 0.93 mg/dL (0.55-1.30); POTASSIUM 4.5 mmol/L (3.5-5.1); TOTAL BILIRUBIN 0.3 mg/dL (0.0-1.0)
--- NOTE | 2018-10-27 08:02 | NUR ---
Nutrition Update Juice Scale 18 noted. Pt admitted for abdominal pain Diet: clear liquid diet, no red BMI: 48.2 kg/m2 RD to follow per nutrition care standards.
[2018-10-27] MEDS: GEMFIBROZIL 600 MG TABLET (LOPID) PO SCH (09:10)
[2018-10-27] MEDS: GABAPENTIN 300 MG CAPSULE PO SCH ×4 (09:10→22:29)
[2018-10-27] MEDS: LACTULOSE 20 GM/30 ML UDC PO SCH (09:10)
[2018-10-27] MEDS: PAROXETINE HCL 10 MG TABLET PO SCH ×2 (09:11→22:29)
[2018-10-27] MEDS: ENOXAPARIN SODIUM 40 MG/0.4 ML SYRINGE SUBCUT SCH (09:13)
[2018-10-27] MEDS: OMEPRAZOLE 20 MG CAPSULE.DR (PriLOSEC) PO SCH (09:24)
--- NOTE | 2018-10-27 10:00 | NUR ---
PT TAKEN BY MEERA CANCHOLA TO SMOKE OUTSIDE.
--- NOTE | 2018-10-27 10:45 | NUR ---
seen pt in bed, family at bedside, pt eating chip , told pt that she is still on clear liquid diet, stated that she is going to be discharge anyway, told her that there are some test to be done as ordered by dr oliveira . told also family member not no let her eat.
--- NOTE | 2018-10-27 10:52 | NUR ---
CONSULTATION PAGED/CALLED Reason for Consultation: [] SEROMA/ABSCESS? Person Who was Notified: [] Consulting Physician: [] DR CHEMA WILL Artistic Director Specialty: [] RADIOLOGIST Ordering Physician: [] DR Antonette DAVALOS Addendum: 10/27/18 at 1113 by Nelly Jc OR/ CONSULTING PHYSICIAN - DR NANCE MEDICAL CARE ADMINISTRATOR FOR DR WILL
--- NOTE | 2018-10-27 11:14 | NUR ---
RADIOLOGIST FOREST FIRE PREVENTION MANAGER DR NANCE IS AWARE OF THE CONSULT. REQUESTED THE NURSE MARS TO CLARIFY FROM DR SUSANNAH MD REQUESTING THE CONSULT WHAT HE WANTS THE RADIOLOGIST TO DO.
[2018-10-27 12:18] VITALS: BP_SYST 111
--- NOTE | 2018-10-27 13:04 | NUR ---
PT SEEN BY DR SUSANNAH MD SAID HE MAYHAVE TO GET CONS WITH ANOTHER SURGEON, PT ORDERED TO KEEP PT NPO AFTER LUNCH. FOR POSS SURGERY. PT MADE AWARE, PT VERBALIZED UNDERSTANDING.
--- NOTE | 2018-10-27 13:32 | NUR ---
CONSULTATION PAGED/CALLED Reason for Consultation: [] ABSCESS/SEROMA ABDOMINAL WALL Person Who was Notified: [] ANIL Consulting Physician: [] DR TORIBIO Activities Coordinator Specialty: [] GEN SURGERY Ordering Physician: [] DR Antonette DAVALOS
--- NOTE | 2018-10-27 14:45 | NUR ---
PT TAKEN DOWN TO SURGERY BY RENO JACQUES. PT SIGNED CONSENT.
[2018-10-27] MEDS ORDERED: ONDANSETRON HCL 4 MG/2 ML VIAL IVP PRN (16:00)
[2018-10-27] MEDS ORDERED: fentaNYL CITRATE/PF 100 MCG/2 ML AMP IVP PRN ×2 (16:00)
[2018-10-27 16:02] VITALS: BP_SYST 119
--- NOTE | 2018-10-27 16:12 | NUR ---
PT STILL IN SURGERY THIS TIME.
--- NOTE | 2018-10-27 17:30 | NUR ---
pt came back from surgery, pt is aao, no pain at this time, per report pt given versed and propofol. spouse at bedside. franco drain intact and no drainage. dressing dry and intact. will cont to monitor.
--- NOTE | 2018-10-27 19:00 | NUR ---
CLOSING NOTES, PT'S HAVE I&D DONE TODAY BY DR DAVALOS. PILI HAS LITTLE DRAINAGE AT THIS TIME. PT GIVEN PAIN MEDICATIONS NEEDED. VITALS HAS BEEN STABLE. WILL ENDORSE TO NIGHT RN.
--- NOTE | 2018-10-27 19:20 | NUR ---
INITIAL NOTES: BEDSIDE REPORT DONE.RESTING WITH EYES CLOSE SNORING TO LEFT SIDE POSITION.VITAL SIGNS RECORDING IN PROCESS. MOANS WHEN WOKE HER UP. IVF INFUSING AT 100ML/HR. CALL LIGHT WITHIN REACH. BED IN LOW POSITION.. WILL MONITOR CLSELT.
--- NOTE | 2018-10-27 20:15 | NUR ---
VOID: ASSISTED TO BATHROOM TO VOID WITHOUT DIFFICULTY.
[2018-10-27 20:30] VITALS: BP_SYST 128
--- NOTE | 2018-10-27 21:15 | NUR ---
DR. DAVALOS CALLED ,AND ORDERED TO KEEP PATIENT NPO POST MIDNIGHT ,WILL DECIDE IN AM TO DO HERNIA REPAIR. CONSENT WILL BE DONE TOMORROW.
--- NOTE | 2018-10-27 22:32 | NUR ---
PAIN: COMPLAIN OF POST OP ABDOMINAL PAIN. MORPHINE 4MG IV GIVEN .LEVEL 9/10.
--- NOTE | 2018-10-27 22:35 | NUR ---
MEDS ADMIN: DUE PO MEDS GIVEN WITHOUT PROBLEM.
--- NOTE | 2018-10-28 | NUR ---
NPO INITIATED. PATIENT UNDERSTANDS REASON WHY. IVF INFUSING WELL.
[2018-10-28] MEDS: AMPICILLIN SODIUM/SULBACTAM NA 3 GM in NS 100 ML IV SCH ×4 (00:23→17:45)
[2018-10-28 00:36] VITALS: BP_SYST 138
[2018-10-28] MEDS: OXYCODONE/ACETAMINOPHEN 5-325 TABLET PO PRN ×3 (01:24→19:47)
[2018-10-28] MEDS: NACL 0.9% 1,000 ML IV SCH ×2 (01:26→23:49)
[2018-10-28] MEDS: MORPHINE 4 MG/ML INJ. SYRINGE IVP PRN ×4 (04:10→21:23)
--- NOTE | 2018-10-28 04:10 | NUR ---
PAIN: PATIENT AWAKENED. AMBULATED WITH HELP TO BATHROOM TO VOID. COMPLAIN OF ABDOMINAL PAIN. MORPHINE 4MG IV GIVEN.
--- NOTE | 2018-10-28 05:30 | NUR ---
PATIENT INSISTED TO SMOKE OUTSIDE. RENO CAMARILLO TOOK PATIENT TO SMOKE ,BACK AFTER 30MIN.
[2018-10-28] MEDS: LEVOTHYROXINE SODIUM 0.025 MG TABLET PO SCH (06:00)
--- NOTE | 2018-10-28 07:20 | NUR ---
CLOSING: REPORT GIVEN TO AM RN. PATIENT ASKING FOR PAIN MED BUT NOT DUE. ALL NEEDS WERE MET. IVF INFUSING WELL.
[2018-10-28 07:31] LABS: BASOPHILS % (AUTO) 0.5 % (0.0-2.0); EOSINOPHILS # (AUTO) 0.4 K/uL (0.0-0.4); HEMATOCRIT 37.2 % (36-48); HEMOGLOBIN 12.3 g/dL (12.0-16.0); LYMPHOCYTES # (AUTO) 2.4 K/uL (1.0-5.5); LYMPHOCYTES % (AUTO) 26.6 % (20.5-51.5); MEAN CORPUSCULAR HEMOGLOBIN 28 pg (27-31); MEAN CORPUSCULAR HGB CONC 33 % (32-36); MEAN CORPUSCULAR VOLUME 85 fL (79.0-98.0); MONOCYTES # (AUTO) 0.8 K/uL (0.0-1.0); MONOCYTES % (AUTO) 8.4 % (1.7-9.3); NEUTROPHILS # (AUTO) 5.4 K/uL (1.8-7.7); NEUTROPHILS % (AUTO) 60.5 % (40.0-70.0); PLATELET COUNT (AUTO) 452 K/uL (130-430); RED CELL DISTRIBUTION WIDTH 14.8 % (9.0-15.0)
[2018-10-28 07:54] LABS: ALBUMIN 3.5 g/dL (3.4-4.8); CALCIUM 8.9 mg/dL (8.4-11.0); CREATININE 0.67 mg/dL (0.55-1.30); POTASSIUM 3.5 mmol/L (3.5-5.1); TOTAL BILIRUBIN 0.4 mg/dL (0.0-1.0)
[2018-10-28 08:00] VITALS: BP_SYST 108
--- NOTE | 2018-10-28 08:00 | NUR ---
initial notes rec patient awake and was kept npo for possible sx today with dr oliveira. ivf infusing well l ac. no infiltration noted. c/o pain on the abdomen and will medicate patient. resp easy and unlabored and no osb noted. bed to the lowst position and side rails up and locked. call light iwhtn reached and knows mikayla to call for assistance.will continue to monitor patient.
[2018-10-28] MEDS: LACTULOSE 20 GM/30 ML UDC PO SCH (09:00)
[2018-10-28] MEDS: ENOXAPARIN SODIUM 40 MG/0.4 ML SYRINGE SUBCUT SCH (09:00)
[2018-10-28] MEDS: GABAPENTIN 300 MG CAPSULE PO SCH ×4 (09:00→21:21)
[2018-10-28] MEDS: GEMFIBROZIL 600 MG TABLET (LOPID) PO SCH (09:00)
[2018-10-28] MEDS: PAROXETINE HCL 10 MG TABLET PO SCH ×2 (09:00→21:22)
--- NOTE | 2018-10-28 10:30 | NUR ---
rounds seen by dr engle . npo maintained until we get medical records from [facility] and dr oliveira will decide hernia sx of the patient. went out to smoke via wheelchair accompanied by Yolanda nichols.
[2018-10-28 12:32] VITALS: BP_SYST 131
--- NOTE | 2018-10-28 13:29 | NUR ---
Dietitian Recommendations *Recommend continuing NPO per MD orders. *Recommend advance diet when medically appropriate or initiate an alternate route of nutrition support if PO intake is not warranted in 3 to 5 days. Please see Nutritional Assessment for details. BRE AGEE
--- NOTE | 2018-10-28 15:00 | NUR ---
rounds pt was picked up for sx via bed but went to smoke prior to her sx.
[2018-10-28] MEDS ORDERED: NS 1000 ML IV.SOLN IV ONE (15:21)
[2018-10-28] MEDS ORDERED: MIDAZOLAM HCL 5 MG/5 ML VIAL IVP ONE (15:21)
[2018-10-28] MEDS ORDERED: PROPOFOL 200MG/ 20ML VIAL (DIPRIVAN) IV ONE (15:21)
[2018-10-28] MEDS ORDERED: WATER FOR IRRIGATION,STERILE 1,000 ML IRRIG.SOLN IR ONE (15:21)
[2018-10-28] MEDS ORDERED: LR 1,000 ML IV SCH (15:55)
[2018-10-28] MEDS ORDERED: HYDROmorphone 1 MG INJ. 1 MG/ML AMPUL IVP PRN (16:00)
[2018-10-28] MEDS ORDERED: MEPERIDINE HCL/PF 25 MG/ML DISP.SYRIN IVP PRN (16:00)
[2018-10-28] MEDS ORDERED: HYDROmorphone 2 MG/ML VIAL IVP PRN ×2 (16:00)
[2018-10-28 17:49] VITALS: BP_SYST 128
--- NOTE | 2018-10-28 17:54 | NUR ---
rounds rec patient back from rr s/p inguinal repair of the left side. dressing dry and intact. no bleeding noted. c/o pain and was medicated for pain. at bedside. no sob noted.
--- NOTE | 2018-10-28 18:40 | NUR ---
closing notes asleep at this time. no sob noted. call light within reached. bed to the lowest position, side rails up and locked.
[2018-10-28 20:00] VITALS: BP_SYST 110
--- NOTE | 2018-10-28 21:30 | NUR ---
Scheduled and prn meds Gave scheduled meds. Patient complain of 10/10 pain to abdomen. Gave Morphine 4 mg IVP for severe pain. Patient tolerated well. No signs of allergic reaction noted.
--- NOTE | 2018-10-28 22:09 | NUR ---
Opening notes Received report. Assisted patient to the restroom, steady gait noted. Patient back in bed. Patient complains of 6/10 pain to abdomen. Gave Percocet 1 tab. Patient tolerated well, no signs of allergic reaction noted. IV is patent and intact infusing fluids. Dressing to abdomen is clean and intact. PILI is intact. Educated the patient on IS. Patient able to inspire 1500 ml. No other needs at this moment. Safety precautions are in place. Addendum: 10/28/18 at 6694 by Treva Douglas RN Note done at 1950.
--- NOTE | 2018-10-28 23:00 | NUR ---
RN rounds Patient sleeping comfortably in bed. No signs of distress noted. Breathing is even and unlabored. Safety precautions in place.
[2018-10-29] MEDS: OXYCODONE/ACETAMINOPHEN 5-325 TABLET PO PRN ×3 (00:08→08:53)
--- NOTE | 2018-10-29 00:10 | NUR ---
Scheduled and prn meds Gave scheduled meds. Patient complain of 6/10 pain to abdomen. Gave Percocet 1 tab for moderate pain. Patient tolerated well. No signs of allergic reaction noted.
[2018-10-29 00:31] VITALS: BP_SYST 107
[2018-10-29] MEDS: MORPHINE 4 MG/ML INJ. SYRINGE IVP PRN ×3 (01:43→09:55)
--- NOTE | 2018-10-29 01:56 | NUR ---
Pain meds Patient complains of 10/10 pain to abdomen. Gave Morphine 4 mg for severe pain. Patient tolerated well. No signs of allergic reaction.
--- NOTE | 2018-10-29 03:09 | NUR ---
RN rounds Patient is resting comfortably in bed. No signs of distress noted. Breathing is even and unlabored. Safety precautions in place.
--- NOTE | 2018-10-29 04:19 | NUR ---
Pain meds Patient complain of 6/10 pain to the abdomen. Gave Percocet 1 tab PO for moderate pain. Patient tolerated well. No signs of allergic reaction noted.
--- NOTE | 2018-10-29 04:44 | NUR ---
RN ROUNDS PATIENT REQUESTING TO SMOKE STATES SHE CANT WAIT UNTIL THE AM, PATIENT WHEELCHAIR TO FRONT OF HOSPITAL ACCOMPANIED BY TECHNOLOGY RISK INTERN TO SMOKE.
--- NOTE | 2018-10-29 05:00 | NUR ---
RN rounds Patient back in bed, resting comfortably. No signs of distress noted. Breathing is even and unlabored. Safety precautions in place.
[2018-10-29] MEDS: AMPICILLIN SODIUM/SULBACTAM NA 3 GM in NS 100 ML IV SCH ×3 (05:31)
[2018-10-29] MEDS: LEVOTHYROXINE SODIUM 0.025 MG TABLET PO SCH (05:32)
--- NOTE | 2018-10-29 05:43 | NUR ---
Pain meds Patient complain of 7/10 pain to abdomen. Gave Morphine 4 mg IVP for severe pain. Patient tolerated well. No signs of allergic reaction noted.
[2018-10-29] MEDS: OMEPRAZOLE 20 MG CAPSULE.DR (PriLOSEC) PO SCH (06:05)
[2018-10-29] MEDS: NACL 0.9% 1,000 ML IV SCH (06:06)
--- NOTE | 2018-10-29 07:05 | NUR ---
Closing notes Patient is resting comfortably in bed. No signs of distress noted. Breathing is even and unlabored. IV is patent and intact, infusing fluids. Dressing is clean and intact. PILI drain is intact. All needs met. Practice guidelines met throughout the shift. Safety precautions in place.
--- NOTE | 2018-10-29 07:20 | NUR ---
OPENING NOTE: MORNING REPORT WAS TAKEN FROM LIBRARY SUPERVISOR NURSE. PATIENT ALERT AND ORIENTED. PATIENT NOT COMPLAINING OF SHORTNESS OF BREATH. PATIENT ON 2L NC. PATIENT NOT COMPLAINING OF NAUSEA OR VOMITING. PATIENT NOT COMPLAINING OF CONSTIPATION. PATIENT PASSING GAS. PATIENT'S DRESSING IS DRY AND INTACT. FLUIDS ARE INFUSING. PATIENT NOT COMPLAINING OF PAIN AT MOMENT. EDUCATED PATIENT ON IMPORTANCE OF BED ALARM BUT REFUSED TO HAVE IT ON. CALL LIGHT IS IN REACH. BED IN LOWEST POSITION. WILL CONTINUE TO MONITOR.
[2018-10-29 07:31] LABS: CALCIUM 8.6 mg/dL (8.4-11.0); CREATININE 0.78 mg/dL (0.55-1.30); POTASSIUM 3.8 mmol/L (3.5-5.1)
[2018-10-29 07:38] LABS: ALBUMIN 3.4 g/dL (3.4-4.8); TOTAL BILIRUBIN 0.3 mg/dL (0.0-1.0)
[2018-10-29 08:04] VITALS: BP_SYST 130
[2018-10-29 08:14] LABS: BASOPHILS % (AUTO) 0.2 % (0.0-2.0); EOSINOPHILS % (AUTO) 0.1 % (0.0-4.0); HEMATOCRIT 37.8 % (36-48); HEMOGLOBIN 12.3 g/dL (12.0-16.0); LYMPHOCYTES # (AUTO) 1.9 K/uL (1.0-5.5); LYMPHOCYTES % (AUTO) 11.5 % (20.5-51.5); MEAN CORPUSCULAR HEMOGLOBIN 28 pg (27-31); MEAN CORPUSCULAR HGB CONC 32 % (32-36); MEAN CORPUSCULAR VOLUME 86 fL (79.0-98.0); MONOCYTES # (AUTO) 0.6 K/uL (0.0-1.0); MONOCYTES % (AUTO) 3.8 % (1.7-9.3); NEUTROPHILS # (AUTO) 14.2 K/uL (1.8-7.7); PLATELET COUNT (AUTO) 494 K/uL (130-430); RED BLOOD CELL COUNT(AUTO) 4.42 MIL/uL (4.2-6.2); RED CELL DISTRIBUTION WIDTH 14.7 % (9.0-15.0); WHITE BLOOD COUNT (AUTO) 16.7 K/uL (4.8-10.8)
[2018-10-29] MEDS: LACTULOSE 20 GM/30 ML UDC PO SCH (08:53)
[2018-10-29] MEDS: GEMFIBROZIL 600 MG TABLET (LOPID) PO SCH (08:53)
[2018-10-29] MEDS: PAROXETINE HCL 10 MG TABLET PO SCH (08:53)
[2018-10-29] MEDS: GABAPENTIN 300 MG CAPSULE PO SCH (08:53)
[2018-10-29] MEDS: ENOXAPARIN SODIUM 40 MG/0.4 ML SYRINGE SUBCUT SCH (08:59)
--- NOTE | 2018-10-29 09:36 | NUR ---
MD: DR DAVALOS AT BEDSIDE. TOOK OUT PATIENT'S PILI DRAIN. SAID IT IS OKAY FOR PATIENT TO BE DISCHARGED HOME. JUST TO FOLLOW UP WITH HIM AT HIS OFFICE AND SPONGE BATHS FOR PATIENT.
[2018-10-29] MEDS ORDERED: CIPR-211 PO (10:04)
[2018-10-29 10:49] VITALS: BP_SYST 130
--- NOTE | 2018-10-29 11:10 | NUR ---
NOTE: TOOK PATIENT OUT TO SMOKE. PATIENT BACK IN ROOM WITH NO DISTRESS.
[2018-10-29 11:43] LABS: NEUTROPHILS % (AUTO) 84.4 % (40.0-70.0)
--- NOTE | 2018-10-29 12:15 | NUR ---
D/C Patient Patient given medication reconciliation form and D/C instructions. Exit Care provided. Patient verbalized understanding. MD discussed with patient the results and treatment provided. Ambulatory with steady gait for discharge to home. Patient in stable condition, ID band removed. IV catheter removed, intact and dressing applied, no active bleeding. Rx of antibiotics given. Patient educated on pain management. All belongings sent with patient. Patient wheeled out to front by nurse and .
--- NOTE | 2018-11-01 14:07 | NUR ---
Discharge Follow Up Phone Call HEARING SCREEN COORDINATOR attempted to phone patient on 10/31/18, but misdialed and the person on the line hung up. HEARING SCREEN COORDINATOR noted the error and phoned patient today, , and left a voicemail message. Patient returned the call. Patient stated she was doing fine. Her wound is sealed with a bandage and does not seem to be irritated, infected or draining. Patient asked for wound care information. HEARING SCREEN COORDINATOR could not find any in the chart. It would seem that patient should leave dressing in tact until her appointment with Dr Bunch on 11/04/18. However, HEARING SCREEN COORDINATOR recommended to patient that she phone Dr Bunch's office for guidance to be sure. No other questions or concerns.
== END 2018-10-29 12:15 | disposition home or self-care (01) | DRG 793 ==
LOC: SED 22:55 → SMU 10-26 02:26
PROVIDERS: ADMIT Internal Medicine; ATTEND Internal Medicine
PROC: 0W9F00Z Drainage of Abdominal Wall with Drainage Device, Open Approach (ICD-10-PCS; principal; 2018-10-27 15:00)
PROC: 0YQ60ZZ Repair Left Inguinal Region, Open Approach (ICD-10-PCS; 2018-10-28)
PROC: 3E0M3BZ Introduction of Anesthetic Agent into Peritoneal Cavity, Percutaneous Approach (ICD-10-PCS; 2018-10-28)
DX: L76.34 Postprocedural seroma of skin and subcutaneous tissue following other procedure (principal); E66.01 Morbid (severe) obesity due to excess calories; K40.31 Unilateral inguinal hernia, with obstruction, without gangrene, recurrent; G62.9 Polyneuropathy, unspecified; Z68.41 Body mass index [BMI] 40.0-44.9, adult; G89.4 Chronic pain syndrome; K43.2 Incisional hernia without obstruction or gangrene; F32.9 Major depressive disorder, single episode, unspecified; F41.9 Anxiety disorder, unspecified; F17.210 Nicotine dependence, cigarettes, uncomplicated; Z79.899 Other long term (current) drug therapy; Z90.710 Acquired absence of both cervix and uterus; Z88.8 Allergy status to other drugs, medicaments and biological substances; Z88.1 Allergy status to other antibiotic agents
CPT/HCPCS: 36415; 80053; 81000-TC; 85025; 87070-TC; 87075-TC; 87081; 87086; 94010; 94760; 96374; 96375; 99285; C9113; C9290; J0290; J0295; J1100; J1200; J1650; J2250; J2270; J2405; J2704; J3010; J7030; J7120

== ENCOUNTER 2018-12-11 14:04 | Inpatient (IN) | payer MEDICAID ==
[~2018-12-11] VITALS: Ht 147.3 cm; Wt 100.2 kg
[~2018-12-11 14:04] MED LIST changes: +CIPR-211 PO; -LACT1CAP71 PO; -LURA40TA PO; -NITR-85 PO; +PERC10 GT; -VIS50 PO; -WELSR150 PO
[2018-12-11 14:05] VITALS: BP_SYST 131
[2018-12-11 14:56] LABS: BILIRUBIN,URINE NEGATIVE (NEGATIVE); BLOOD, URINE NEGATIVE (NEGATIVE); CLARITY/URINE CLEAR (CLEAR); COLOR,URINE YELLOW (YELLOW); GLUCOSE,URINE NEGATIVE (NEGATIVE); KETONES,URINE NEGATIVE (NEGATIVE); LEUKOCYTE ESTERASE ,URINE NEGATIVE (NEGATIVE); NITRITE, URINE NEGATIVE (NEGATIVE); PROTEIN URINE NEGATIVE (NEGATIVE); UROBILINOGEN,URINE 0.2 (0.2-1.0)
[2018-12-11 15:15] LABS: BASOPHILS # (AUTO) 0.1 K/uL (0.0-0.2); BASOPHILS % (AUTO) 0.8 % (0.0-2.0); EOSINOPHILS # (AUTO) 0.3 K/uL (0.0-0.4); EOSINOPHILS % (AUTO) 3.1 % (0.0-4.0); HEMATOCRIT 38.9 % (36-48); LYMPHOCYTES # (AUTO) 2.9 K/uL (1.0-5.5); LYMPHOCYTES % (AUTO) 29.1 % (20.5-51.5); MEAN CORPUSCULAR HEMOGLOBIN 29 pg (27-31); MEAN CORPUSCULAR HGB CONC 33 % (32-36); MEAN CORPUSCULAR VOLUME 85 fL (79.0-98.0); MONOCYTES # (AUTO) 0.5 K/uL (0.0-1.0); NEUTROPHILS # (AUTO) 6.2 K/uL (1.8-7.7); PLATELET COUNT (AUTO) 556 K/uL (130-430); RED BLOOD CELL COUNT(AUTO) 4.57 MIL/uL (4.2-6.2); RED CELL DISTRIBUTION WIDTH 15.3 % (9.0-15.0)
[2018-12-11] MEDS ORDERED: fentaNYL CITRATE/PF 100 MCG/2 ML AMP IM ONE (15:15)
[2018-12-11 15:50] LABS: ALBUMIN 3.9 g/dL (3.4-4.8); CREATININE 1.13 mg/dL (0.55-1.30); POTASSIUM 4.7 mmol/L (3.5-5.1); TOTAL BILIRUBIN 0.3 mg/dL (0.0-1.0)
[2018-12-11 16:46] VITALS: BP_SYST 120
[2018-12-11] MEDS ORDERED: POTASSIUM CHLORIDE 20 MEQ TAB.PRT.SR PO PRN (17:15)
[2018-12-11] MEDS ORDERED: MORPHINE 4 MG/ML INJ. SYRINGE IVP PRN ×2 (17:15)
[2018-12-11] MEDS ORDERED: ZOLPIDEM TARTRATE 5 MG TABLET PO PRN (17:15)
[2018-12-11] MEDS ORDERED: ONDANSETRON HCL 4 MG/2 ML VIAL IVP PRN (17:15)
[2018-12-11] MEDS ORDERED: ACETAMINOPHEN 325 MG TABLET PO PRN (17:15)
[2018-12-11] MEDS ORDERED: LORazepam 2 MG/ML VIAL IVP PRN (17:15)
[2018-12-11] MEDS ORDERED: DEXTROSE 50% JECT 50 ML DISP.SYRIN IVP PRN (17:15)
[2018-12-11] MEDS ORDERED: MUPIROCIN 2% TOPICAL OINTMENT 22 GM NS PRN (17:15)
[2018-12-11] MEDS ORDERED: MAGNESIUM SULFATE 50 ML IV PRN (17:15)
[2018-12-11] MEDS ORDERED: DOCUSATE SODIUM 100 MG CAPSULE PO PRN (17:15)
[2018-12-11] MEDS: D5NS 1,000 ML IV SCH (17:42)
[2018-12-11] MEDS: MORPHINE 4 MG/ML INJ. SYRINGE IVP PRN ×2 (17:43→22:13)
[2018-12-11 20:00] VITALS: BP_SYST 110
[2018-12-11] MEDS: INSULIN ASPART 100 UNITS/ML, 10 ML VIAL (NovoLOG) SUBCUT PRN (22:13)
[2018-12-12 00:18] VITALS: BP_SYST 122
[2018-12-12] MEDS: D5NS 1,000 ML IV SCH ×2 (02:06→13:15)
[2018-12-12] MEDS: MORPHINE 4 MG/ML INJ. SYRINGE IVP PRN ×3 (02:07→09:52)
[2018-12-12] MEDS: INSULIN ASPART 100 UNITS/ML, 10 ML VIAL (NovoLOG) SUBCUT PRN (05:57)
[2018-12-12 07:02] LABS: BASOPHILS # (AUTO) 0.1 K/uL (0.0-0.2); BASOPHILS % (AUTO) 0.7 % (0.0-2.0); EOSINOPHILS # (AUTO) 0.4 K/uL (0.0-0.4); HEMATOCRIT 37.3 % (36-48); HEMOGLOBIN 12.1 g/dL (12.0-16.0); LYMPHOCYTES # (AUTO) 2.6 K/uL (1.0-5.5); LYMPHOCYTES % (AUTO) 25.6 % (20.5-51.5); MEAN CORPUSCULAR HEMOGLOBIN 28 pg (27-31); MEAN CORPUSCULAR HGB CONC 33 % (32-36); MEAN CORPUSCULAR VOLUME 87 fL (79.0-98.0); MONOCYTES # (AUTO) 0.7 K/uL (0.0-1.0); MONOCYTES % (AUTO) 6.6 % (1.7-9.3); NEUTROPHILS # (AUTO) 6.3 K/uL (1.8-7.7); NEUTROPHILS % (AUTO) 63.1 % (40.0-70.0); PLATELET COUNT (AUTO) 504 K/uL (130-430); RED CELL DISTRIBUTION WIDTH 15.4 % (9.0-15.0); WHITE BLOOD COUNT (AUTO) 10.1 K/uL (4.8-10.8)
[2018-12-12 07:13] LABS: CALCIUM 8.2 mg/dL (8.4-11.0); CREATININE 1.08 mg/dL (0.55-1.30); POTASSIUM 4.6 mmol/L (3.5-5.1)
[2018-12-12 08:23] VITALS: BP_SYST 115
[2018-12-12 09:53] LABS: INR 0.9 (0.8-1.2); PROTHROMBIN TIME 9.5 SECS (9.5-12.5)
[2018-12-12 13:56] VITALS: BP_SYST 100
[2018-12-12] MEDS ORDERED: POLYMYXIN 500,000/BACIT.10,000 UNITS in NS IRR 1 L IR ONE (14:00)
[2018-12-12] MEDS ORDERED: fentaNYL CITRATE/PF 100 MCG/2 ML AMP IVP PRN ×2 (14:30)
[2018-12-12] MEDS ORDERED: ONDANSETRON HCL 4 MG/2 ML VIAL IVP PRN (14:30)
[2018-12-12] MEDS ORDERED: KETOROLAC TROMETHAMINE 30 MG VIAL IVP PRN (14:30)
[2018-12-12] MEDS ORDERED: HYDROcodone/ACETAMIN 5-325 MG TAB (NORCO/ VICODIN) PO PRN (17:15)
[2018-12-12] MEDS ORDERED: KETOROLAC TROMETHAMINE 30 MG VIAL ONE (17:24)
[2018-12-12] MEDS ORDERED: CLIN150C15 PO (17:33)
[2018-12-12] MEDS ORDERED: DOCU-144 PO (17:34)
[2018-12-12] MEDS ORDERED: HYDR-4272 PO (17:36)
[2018-12-12] MEDS ORDERED: HYDROcodone/ACETAMIN 5-325 MG TAB (NORCO/ VICODIN) PO ONE (18:15)
[2018-12-12 18:31] VITALS: BP_SYST 111
== END 2018-12-12 20:04 | disposition home or self-care (01) | DRG 228 ==
LOC: SED 14:04 → SMU 16:22
PROVIDERS: ADMIT General Practice; ATTEND General Practice
PROC: 0YU60JZ Supplement Left Inguinal Region with Synthetic Substitute, Open Approach (ICD-10-PCS; principal; 2018-12-12 13:30)
DX: K40.91 Unilateral inguinal hernia, without obstruction or gangrene, recurrent (principal); E66.01 Morbid (severe) obesity due to excess calories; E03.9 Hypothyroidism, unspecified; E11.9 Type 2 diabetes mellitus without complications; F17.210 Nicotine dependence, cigarettes, uncomplicated; G47.30 Sleep apnea, unspecified; G89.29 Other chronic pain; M19.90 Unspecified osteoarthritis, unspecified site; F41.9 Anxiety disorder, unspecified; F32.9 Major depressive disorder, single episode, unspecified; Z68.42 Body mass index [BMI] 45.0-49.9, adult; Z90.710 Acquired absence of both cervix and uterus; Z88.1 Allergy status to other antibiotic agents; Z88.8 Allergy status to other drugs, medicaments and biological substances; Z79.899 Other long term (current) drug therapy
CPT/HCPCS: 36415; 80048; 80053; 81003; 82962; 83036; 83690-TC; 83735-TC; 84703; 85025; 85610-TC; 85730-TC; 87081; 88302; 96372; 99285; J1885; J2270; J2405; J3010; J7042; J7120

== ENCOUNTER 2018-12-19 07:13 | Observation (INO) | payer MEDICAID ==
[~2018-12-19] VITALS: Ht 149.9 cm; Wt 99.8 kg
[~2018-12-19 07:13] MED LIST changes: +BUPIVACAINE /PF 0.25% 30 ML VIAL INJ ONE; +BUPIVACAINE /PF 0.75% 10 ML VIAL INJ ONE; +BUPIVACAINE LIPOSOME/PF 266 MG/20 ML VIAL INFIL ONE; +CLIN150C15 PO; +CLINDAMYCIN PHOSPHATE 600 mg/50mL D5W IV ONE; +DOCU-144 PO; +FLUCONAZOLE 200 mg/ NS 100 mL IVPB IV ONE; +HYDR-4272 PO; +LR 1,000 ML IV.SOLN IV ONE; +MIDAZOLAM HCL 5 MG/5 ML VIAL IVP ONE; +NORMAL SALINE 10 ML VIAL IVP ONE; +PROPOFOL 200MG/ 20ML VIAL (DIPRIVAN) IV ONE
[2018-12-19 07:19] VITALS: BP_SYST 113
[2018-12-19] MEDS ORDERED: MORPHINE 4 MG/ML INJ. SYRINGE IVP ONE ×2 (08:00→09:45)
[2018-12-19 08:25] LABS: BILIRUBIN,URINE NEGATIVE (NEGATIVE); BLOOD, URINE NEGATIVE (NEGATIVE); CLARITY/URINE CLEAR (CLEAR); COLOR,URINE YELLOW (YELLOW); GLUCOSE,URINE NEGATIVE (NEGATIVE); KETONES,URINE NEGATIVE (NEGATIVE); LEUKOCYTE ESTERASE ,URINE 3+ (NEGATIVE); NITRITE, URINE NEGATIVE (NEGATIVE); PROTEIN URINE NEGATIVE (NEGATIVE); UROBILINOGEN,URINE 0.2 (0.2-1.0)
[2018-12-19 08:34] LABS: BACTERIA,URINE RARE /HPF (None Seen); RBC,URINE 0-3 /HPF (0-3)
[2018-12-19 08:35] LABS: TRICHOMONAS,URINE Few /HPF (None Seen)
[2018-12-19 08:37] LABS: HEMATOCRIT 35.9 % (36-48); HEMOGLOBIN 11.7 g/dL (12.0-16.0); RED BLOOD CELL COUNT(AUTO) 4.21 MIL/uL (4.2-6.2); WHITE BLOOD COUNT (AUTO) 14.1 K/uL (4.8-10.8)
[2018-12-19 08:38] LABS: BASOPHILS # (AUTO) 0.1 K/uL (0.0-0.2); EOSINOPHILS # (AUTO) 0.5 K/uL (0.0-0.4); EOSINOPHILS % (AUTO) 3.5 % (0.0-4.0); LYMPHOCYTES # (AUTO) 2.5 K/uL (1.0-5.5); LYMPHOCYTES % (AUTO) 17.9 % (20.5-51.5); MEAN CORPUSCULAR HEMOGLOBIN 28 pg (27-31); MEAN CORPUSCULAR HGB CONC 33 % (32-36); MEAN CORPUSCULAR VOLUME 85 fL (79.0-98.0); MONOCYTES # (AUTO) 0.8 K/uL (0.0-1.0); MONOCYTES % (AUTO) 5.5 % (1.7-9.3); NEUTROPHILS # (AUTO) 10.2 K/uL (1.8-7.7); NEUTROPHILS % (AUTO) 72.1 % (40.0-70.0); PLATELET COUNT (AUTO) 545 K/uL (130-430); RED CELL DISTRIBUTION WIDTH 16.1 % (9.0-15.0)
[2018-12-19 08:49] LABS: CREATININE 0.89 mg/dL (0.55-1.30); POTASSIUM 4.3 mmol/L (3.5-5.1)
[2018-12-19 08:55] LABS: ALBUMIN 3.4 g/dL (3.4-4.8); TOTAL BILIRUBIN 0.2 mg/dL (0.0-1.0)
[2018-12-19] MEDS ORDERED: PIPERACILLIN/TAZO 3.375 GM in NS 50 ML IV ONE (10:00)
[2018-12-19] MEDS ORDERED: FLUCONAZOLE 200 mg/ NS 100 ML IV ONE (10:00)
[2018-12-19] MEDS ORDERED: PIPERACILLIN/TAZOBACTAM 3.375 GM/VIAL (ZOSYN) IV ONE (10:03)
[2018-12-19 11:01] VITALS: BP_SYST 118
[2018-12-19] MEDS: MORPHINE 4 MG/ML INJ. SYRINGE IVP PRN ×3 (13:44→19:50)
[2018-12-19] MEDS ORDERED: OXYCODONE/ACETAMINOPHEN 5-325 TABLET PO PRN (15:00)
[2018-12-19] MEDS ORDERED: FLUCONAZOLE 100 MG TABLET (DIFLUCAN) PO ONE (15:45)
[2018-12-19] MEDS ORDERED: HYDROcodone/ACETAMIN 5-325 MG TAB (NORCO/ VICODIN) PO PRN (15:45)
[2018-12-19 16:47] VITALS: BP_SYST 113
[2018-12-19] MEDS: LR 1,000 ML IV SCH (17:05)
[2018-12-19] MEDS: CLINDAMYCIN 300 MG in D5W 50 ML IV SCH ×2 (17:07→23:34)
[2018-12-19 20:00] VITALS: BP_SYST 109
[2018-12-19] MEDS: NORMAL SALINE 5 ML DISP.SYRIN IVF SCH (21:52)
[2018-12-20 00:11] VITALS: BP_SYST 99
[2018-12-20] MEDS: MORPHINE 4 MG/ML INJ. SYRINGE IVP PRN ×5 (00:38→16:18)
[2018-12-20] MEDS: CLINDAMYCIN 300 MG in D5W 50 ML IV SCH ×2 (05:08→12:28)
[2018-12-20] MEDS: NORMAL SALINE 5 ML DISP.SYRIN IVF SCH ×2 (05:09→12:28)
[2018-12-20] MEDS: LR 1,000 ML IV SCH ×2 (05:09→16:00)
[2018-12-20] MEDS ORDERED: FLUCONAZOLE 100 MG TABLET (DIFLUCAN) PO SCH (09:00)
[2018-12-20 09:03] VITALS: BP_SYST 103
[2018-12-20 09:22] LABS: INR 0.9 (0.8-1.2); PROTHROMBIN TIME 9.5 SECS (9.5-12.5)
[2018-12-20] MEDS ORDERED: LIDOCAINE 1%, 20 ML MDV 20 ML ONE (11:14)
[2018-12-20] MEDS ORDERED: NS 50 ML IV ONE (11:25)
[2018-12-20 14:00] VITALS: BP_SYST 97
[2018-12-20 16:05] VITALS: BP_SYST 129; BP_SYST 97
[2018-12-20 16:15] VITALS: BP_SYST 129
== END 2018-12-20 17:00 | disposition home or self-care (01) ==
LOC: SED 07:13 → SMU 10:01
PROVIDERS: ADMIT Surgery; ATTEND Surgery
DX: T81.89XD Other complications of procedures, not elsewhere classified, subsequent encounter (principal); R10.32 Left lower quadrant pain; D64.9 Anemia, unspecified; R74.0 Nonspecific elevation of levels of transaminase and lactic acid dehydrogenase [LDH]; E66.01 Morbid (severe) obesity due to excess calories; Z23 Encounter for immunization
CPT/HCPCS: 36415 ×2; 74176; 75989; 80053; 81000; 81025; 83605; 85025; 85610; 87040; 87086; 87186; 90471; 90656; 93005; 96365; 96366 ×2; 96368; 96375; 96376 ×3; 99285; C1729; G0378 ×2; J1450; J2001; J2270 ×2; J2543; J3490; J7060; J7120 ×2

== ENCOUNTER 2019-01-03 16:57 | Emergency (ER) | payer MEDICAID ==
[~2019-01-03] VITALS: Ht 147.3 cm; Wt 97.5 kg
[~2019-01-03 16:57] MED LIST changes: -BUPIVACAINE /PF 0.25% 30 ML VIAL INJ ONE; -BUPIVACAINE /PF 0.75% 10 ML VIAL INJ ONE; -BUPIVACAINE LIPOSOME/PF 266 MG/20 ML VIAL INFIL ONE; -CLIN150C15 PO; -CLINDAMYCIN PHOSPHATE 600 mg/50mL D5W IV ONE; -DOCU-144 PO; -FLUCONAZOLE 200 mg/ NS 100 mL IVPB IV ONE; -HYDR-4272 PO; -LR 1,000 ML IV.SOLN IV ONE; -MIDAZOLAM HCL 5 MG/5 ML VIAL IVP ONE; -NORMAL SALINE 10 ML VIAL IVP ONE; -PROPOFOL 200MG/ 20ML VIAL (DIPRIVAN) IV ONE
[2019-01-03 17:07] VITALS: BP_SYST 127
[2019-01-03 19:18] LABS: BILIRUBIN,URINE NEGATIVE (NEGATIVE); BLOOD, URINE NEGATIVE (NEGATIVE); COLOR,URINE YELLOW (YELLOW); GLUCOSE,URINE NEGATIVE (NEGATIVE); KETONES,URINE NEGATIVE (NEGATIVE); NITRITE, URINE NEGATIVE (NEGATIVE); PROTEIN URINE TRACE (NEGATIVE); UROBILINOGEN,URINE 0.2 (0.2-1.0)
[2019-01-03 19:26] LABS: CLARITY/URINE HAZY (CLEAR); LEUKOCYTE ESTERASE ,URINE 2+ (NEGATIVE)
[2019-01-03 19:26] LABS: BASOPHILS # (AUTO) 0.1 K/uL (0.0-0.2); BASOPHILS % (AUTO) 0.7 % (0.0-2.0); EOSINOPHILS # (AUTO) 0.4 K/uL (0.0-0.4); EOSINOPHILS % (AUTO) 3.8 % (0.0-4.0); HEMATOCRIT 39.3 % (36-48); HEMOGLOBIN 12.9 g/dL (12.0-16.0); LYMPHOCYTES # (AUTO) 3.1 K/uL (1.0-5.5); LYMPHOCYTES % (AUTO) 28.6 % (20.5-51.5); MEAN CORPUSCULAR HEMOGLOBIN 27 pg (27-31); MEAN CORPUSCULAR HGB CONC 33 % (32-36); MEAN CORPUSCULAR VOLUME 84 fL (79.0-98.0); MONOCYTES # (AUTO) 0.8 K/uL (0.0-1.0); MONOCYTES % (AUTO) 7.8 % (1.7-9.3); NEUTROPHILS # (AUTO) 6.5 K/uL (1.8-7.7); NEUTROPHILS % (AUTO) 59.1 % (40.0-70.0); PLATELET COUNT (AUTO) 682 K/uL (130-430); RED BLOOD CELL COUNT(AUTO) 4.69 MIL/uL (4.2-6.2); RED CELL DISTRIBUTION WIDTH 15.1 % (9.0-15.0); WHITE BLOOD COUNT (AUTO) 10.9 K/uL (4.8-10.8)
[2019-01-03 19:28] LABS: CALCIUM 8.8 mg/dL (8.4-11.0); CREATININE 0.9 mg/dL (0.55-1.30); POTASSIUM 4.2 mmol/L (3.5-5.1)
[2019-01-03 19:29] LABS: BACTERIA,URINE MODERATE /HPF (None Seen); MUCUS,URINE None Seen /LPF (None Seen); WBC,URINE 20-50 /HPF (0-3)
[2019-01-03 19:30] LABS: INR 0.9 (0.8-1.2); PROTHROMBIN TIME 9.5 SECS (9.5-12.5)
[2019-01-03] MEDS ORDERED: DIPHENHYDRAMINE INJ 50 MG/ML VIAL IVP ONE (19:30)
[2019-01-03] MEDS ORDERED: MORPHINE 4 MG/ML INJ. SYRINGE IVP ONE (19:30)
[2019-01-03 19:32] LABS: ALBUMIN 3.8 g/dL (3.4-4.8); TOTAL BILIRUBIN 0.3 mg/dL (0.0-1.0)
[2019-01-03] MEDS ORDERED: NACL 0.9% 1,000 ML IV ONE (20:00)
[2019-01-03] MEDS ORDERED: NITROFURANTOIN MONOHYD/M-CRYST 100 MG CAPSULE PO ONE (20:45)
[2019-01-03] MEDS ORDERED: fentaNYL CITRATE/PF 100 MCG/2 ML AMP IVP ONE (22:30)
[2019-01-03 23:21] VITALS: BP_SYST 127
== END 2019-01-03 23:21 | disposition home or self-care (01) ==
LOC: SED 16:57
DX: N39.0 Urinary tract infection, site not specified (principal); E11.9 Type 2 diabetes mellitus without complications; M19.90 Unspecified osteoarthritis, unspecified site; F41.9 Anxiety disorder, unspecified; F32.9 Major depressive disorder, single episode, unspecified; Z88.1 Allergy status to other antibiotic agents; Z88.6 Allergy status to analgesic agent; Z88.8 Allergy status to other drugs, medicaments and biological substances; Z79.899 Other long term (current) drug therapy; Z98.890 Other specified postprocedural states
CPT/HCPCS: 36415; 76700; 80053; 81000; 83605; 83690; 85025; 85610; 87040; 87086; 93005; 96374; 96375; 99284; J1200; J2270; J3010; J7030; J1956

== ENCOUNTER 2019-01-31 19:10 | Emergency (ER) | payer MEDICAID ==
[~2019-01-31] VITALS: Ht 147.3 cm; Wt 98.4 kg
[2019-01-31 19:30] VITALS: BP_SYST 124
[2019-01-31 20:31] LABS: BILIRUBIN,URINE NEGATIVE (NEGATIVE); COLOR,URINE YELLOW (YELLOW); GLUCOSE,URINE NEGATIVE (NEGATIVE); KETONES,URINE NEGATIVE (NEGATIVE); NITRITE, URINE NEGATIVE (NEGATIVE); PROTEIN URINE NEGATIVE (NEGATIVE); UROBILINOGEN,URINE 0.2 (0.2-1.0)
[2019-01-31 20:42] LABS: HEMATOCRIT 39.1 % (36-48); HEMOGLOBIN 12.9 g/dL (12.0-16.0); MEAN CORPUSCULAR HEMOGLOBIN 28 pg (27-31); MEAN CORPUSCULAR HGB CONC 33 % (32-36); MEAN CORPUSCULAR VOLUME 86 fL (79.0-98.0); PLATELET COUNT (AUTO) 604 K/uL (130-430); RED BLOOD CELL COUNT(AUTO) 4.57 MIL/uL (4.2-6.2); RED CELL DISTRIBUTION WIDTH 15.8 % (9.0-15.0); WHITE BLOOD COUNT (AUTO) 14.2 K/uL (4.8-10.8)
[2019-01-31 20:43] LABS: EOSINOPHILS % (AUTO) 1.2 % (0.0-4.0); LYMPHOCYTES % (AUTO) 23.6 % (20.5-51.5); MONOCYTES % (AUTO) 5.8 % (1.7-9.3); NEUTROPHILS % (AUTO) 68.4 % (40.0-70.0)
[2019-01-31 20:44] LABS: BASOPHILS # (AUTO) 0.1 K/uL (0.0-0.2); EOSINOPHILS # (AUTO) 0.2 K/uL (0.0-0.4); LYMPHOCYTES # (AUTO) 3.3 K/uL (1.0-5.5); MONOCYTES # (AUTO) 0.8 K/uL (0.0-1.0); NEUTROPHILS # (AUTO) 9.7 K/uL (1.8-7.7)
[2019-01-31 20:46] LABS: BLOOD, URINE TRACE (NEGATIVE); CLARITY/URINE HAZY (CLEAR)
[2019-01-31 20:47] LABS: LEUKOCYTE ESTERASE ,URINE 2+ (NEGATIVE)
[2019-01-31 20:49] LABS: BACTERIA,URINE FEW /HPF (None Seen); MUCUS,URINE None Seen /LPF (None Seen); RBC,URINE 0-3 /HPF (0-3)
[2019-01-31 20:52] LABS: CALCIUM 8.3 mg/dL (8.4-11.0); POTASSIUM 3.6 mmol/L (3.5-5.1)
[2019-01-31 20:54] LABS: TOTAL BILIRUBIN 0.2 mg/dL (0.0-1.0)
[2019-01-31] MEDS ORDERED: KETOROLAC TROMETHAMINE 30 MG VIAL IVP ONE (21:00)
[2019-01-31] MEDS ORDERED: LEVOFLOXACIN 500 MG/D5W 100 ML IV ONE (21:00)
[2019-01-31] MEDS ORDERED: MORPHINE 4 MG/ML INJ. SYRINGE IVP ONE (22:30)
[2019-01-31 22:55] VITALS: BP_SYST 126
== END 2019-01-31 22:55 | disposition home or self-care (01) ==
LOC: SED 19:10
DX: N39.0 Urinary tract infection, site not specified (principal); R10.2 Pelvic and perineal pain; F17.210 Nicotine dependence, cigarettes, uncomplicated; F41.9 Anxiety disorder, unspecified; F32.9 Major depressive disorder, single episode, unspecified; M19.90 Unspecified osteoarthritis, unspecified site; Z90.710 Acquired absence of both cervix and uterus; Z88.1 Allergy status to other antibiotic agents; Z88.6 Allergy status to analgesic agent; Z79.899 Other long term (current) drug therapy
CPT/HCPCS: 36415; 76856; 80053; 81000; 85025; 87086; 96365; 96375; 99284; J1885; J1956; J2270

== ENCOUNTER 2019-02-10 20:07 | Inpatient (IN) | payer MEDICAID ==
[~2019-02-10] VITALS: Ht 142.2 cm; Wt 99.8 kg
[~2019-02-10 20:07] MED LIST changes: +LR 1,000 ML IV.SOLN IV ONE; +MIDAZOLAM HCL 5 MG/5 ML VIAL IVP ONE; +NS IRRIG SOLN 1000 ML IR ONE; +PROPOFOL 200MG/ 20ML VIAL (DIPRIVAN) IV ONE; +fentaNYL CITRATE/PF 100 MCG/2 ML AMP IVP ONE
[2019-02-10 20:48] VITALS: BP_SYST 119
--- NOTE | 2019-02-10 20:55 | NUR ---
Pt placed to ER waiting room in stable condition.
[2019-02-10 21:44] LABS: CALCIUM 9.5 mg/dL (8.4-11.0); CREATININE 1.02 mg/dL (0.55-1.30); POTASSIUM 4.4 mmol/L (3.5-5.1)
--- NOTE | 2019-02-10 21:45 | NUR ---
Patient to ER bed 1 moved from [place] to [facility] for evaluation. Side rails up.
[2019-02-10 21:46] LABS: INR 0.9 (0.8-1.2); PROTHROMBIN TIME 9.2 SECS (9.5-12.5)
--- NOTE | 2019-02-10 21:48 | NUR ---
Pt came into ED C/O L lower Q abd pain, as related by S/P I&D Procedure, Dr. Meza's aware of pt condition as he was the Doctor on duty when she was recently seen last here. No other injuries or complaints at this time. Pt resting on gurney with rails up
[2019-02-10 21:49] LABS: ALBUMIN 4.4 g/dL (3.4-4.8); TOTAL BILIRUBIN 0.4 mg/dL (0.0-1.0)
[2019-02-10] MEDS ORDERED: CARI350T27 PO (21:54)
[2019-02-10] MEDS ORDERED: PARO-41 PO (21:54)
[2019-02-10] MEDS ORDERED: OMEP40CA33 PO (21:54)
[2019-02-10] MEDS ORDERED: LEVO25TA7 PO (21:54)
[2019-02-10] MEDS ORDERED: SER25 PO (21:54)
[2019-02-10] MEDS ORDERED: AMIT25TA9 PO (21:54)
[2019-02-10 22:05] LABS: HEMATOCRIT 39.1 % (36-48); MEAN CORPUSCULAR HEMOGLOBIN 28 pg (27-31); MEAN CORPUSCULAR HGB CONC 33 % (32-36); MEAN CORPUSCULAR VOLUME 86 fL (79.0-98.0); PLATELET COUNT (AUTO) 590 K/uL (130-430); RED BLOOD CELL COUNT(AUTO) 4.57 MIL/uL (4.2-6.2); RED CELL DISTRIBUTION WIDTH 15.6 % (9.0-15.0); WHITE BLOOD COUNT (AUTO) 18.2 K/uL (4.8-10.8)
[2019-02-10 22:06] LABS: BASOPHILS % (AUTO) 1.2 % (0.0-2.0); EOSINOPHILS % (AUTO) 0.4 % (0.0-4.0); LYMPHOCYTES % (AUTO) 16.6 % (20.5-51.5); MONOCYTES # (AUTO) 1.1 K/uL (0.0-1.0); MONOCYTES % (AUTO) 6.1 % (1.7-9.3); NEUTROPHILS # (AUTO) 13.8 K/uL (1.8-7.7); NEUTROPHILS % (AUTO) 75.7 % (40.0-70.0)
[2019-02-10 22:07] LABS: BASOPHILS # (AUTO) 0.2 K/uL (0.0-0.2); EOSINOPHILS # (AUTO) 0.1 K/uL (0.0-0.4)
[2019-02-10] MEDS ORDERED: MORPHINE 4 MG/ML INJ. SYRINGE IVP ONE (22:15)
[2019-02-10] MEDS ORDERED: NACL 0.9% 1,000 ML IV ONE (22:26)
[2019-02-10] MEDS ORDERED: VANCOMYCIN HCL 1,000 MG in NS 250 ML IV ONE (22:30)
[2019-02-10] MEDS ORDERED: LEVOFLOXACIN 500 MG/D5W 100 ML IV ONE (22:30)
[2019-02-10 22:45] LABS: BILIRUBIN,URINE NEGATIVE (NEGATIVE); BLOOD, URINE NEGATIVE (NEGATIVE); CLARITY/URINE CLEAR (CLEAR); COLOR,URINE YELLOW (YELLOW); GLUCOSE,URINE NEGATIVE (NEGATIVE); KETONES,URINE NEGATIVE (NEGATIVE); LEUKOCYTE ESTERASE ,URINE 2+ (NEGATIVE); NITRITE, URINE NEGATIVE (NEGATIVE); PROTEIN URINE NEGATIVE (NEGATIVE); UROBILINOGEN,URINE 0.2 (0.2-1.0)
[2019-02-10] MEDS ORDERED: VANCOMYCIN HCL 1000 MG/VIAL IV ONE (22:50)
[2019-02-10] MEDS ORDERED: MORPHINE 2 MG/ML INJ. SYRINGE IVP ONE (23:15)
[2019-02-10 23:20] LABS: BACTERIA,URINE FEW /HPF (None Seen); RBC,URINE 0-3 /HPF (0-3)
[2019-02-10] MEDS ORDERED: MORPHINE 4 MG/ML INJ. SYRINGE ONE (23:35)
--- NOTE | 2019-02-10 23:39 | NUR ---
Gave report by phone to [facility], s/w [facility]. Pt will be transported with IVPB Antibiotix, well tolerated
--- NOTE | 2019-02-10 23:40 | NUR ---
ADMISSION NOTE Received patient from ER via gurney. Patient admitted with diagnosis of Abdominal Pain. Patient is awake, alert, oriented X 4. Patient oriented to hospital room, call light, toileting, pain management and safety-teach back done. Patient informed that RENO Posadas will be primary nurse and that their room number is 102B. Personal belongings checked and Belongings List documented. Call light within reach.
--- NOTE | 2019-02-10 23:40 | NUR ---
Patient will be admitted to care of Dr. Severino. Admitted to Medsurg unit. Will go to room 102B. Belongings list completed. Summary report printed. Report will be given at bedside.
[2019-02-10 23:45] VITALS: BP_SYST 113
[2019-02-10] MEDS ORDERED: ACETAMINOPHEN 325 MG TABLET PO PRN (23:45)
[2019-02-10] MEDS ORDERED: ONDANSETRON HCL 4 MG/2 ML VIAL IVP PRN (23:45)
[2019-02-10] MEDS ORDERED: INSULIN REGULAR, HUMAN 100 UNITS/ML, 10 ML VIAL (novoLIN R) SUBCUT PRN (23:45)
[2019-02-10] MEDS ORDERED: DEXTROSE 50% JECT 50 ML DISP.SYRIN IVP PRN (23:45)
[2019-02-10] MEDS ORDERED: DIPHENHYDRAMINE INJ 50 MG/ML VIAL IVP PRN (23:45)
--- NOTE | 2019-02-10 23:50 | NUR ---
ADMISSION ASSESSMENT DONE AND ROUTINE CARE INITIATED. FALL PRECAUTION DISCUSSED.BED ALARM ON BUT REFUSE THIS TIME. GOING TO BATHROOM OFTEN. AMBULATED WITH STEADY GAIT TO BATHROOM TO VOID WITH SUPERVISION.
--- NOTE | 2019-02-11 00:05 | NUR ---
PAIN: PATIENT COMPLAIN OF SEVERE PAIN LEVEL 10/10 AFTER COMMING FROM BATHROOM. MORPHINE 4MG IV GIVEN ORDERED.CALL LIGHT WITHIN REACH,BED IN LOW POSITION. IVF ,ABX GIVEN .
--- NOTE | 2019-02-11 00:09 | NUR ---
CONSULTATION PAGED/CALLED Reason for Consultation: surgical consult Person Who was Notified: teresa Consulting Physician: laney Mobile Application Tester Specialty: trista Ordering Physician: irina
[2019-02-11] MEDS: MORPHINE 4 MG/ML INJ. SYRINGE IVP PRN ×5 (00:34→22:00)
--- NOTE | 2019-02-11 01:00 | NUR ---
NUTRITION: JELLO /JUICES GIVEN FOR SNACK. DRINKING GOOD AMT. OF FLUIDS.
--- NOTE | 2019-02-11 01:10 | NUR ---
NOTIFIED DR. SWARTZ ,PTS .NEEDS OF HER ANXIETY AND MUSCLE RELAXANT WITH ORDERS. ORDERED MEDS GIVEN AT 01:18.
[2019-02-11] MEDS ORDERED: QUEtiapine FUMARATE 25 MG TABLET PO ONE (01:15)
[2019-02-11] MEDS ORDERED: CARISOPRODOL 350 MG TABLET PO ONE (01:15)
[2019-02-11] MEDS ORDERED: AMITRIPTYLINE HCL 25 MG TABLET (ELAVIL) PO ONE (01:15)
[2019-02-11] MEDS: LR 1,000 ML IV SCH ×3 (01:31→21:58)
--- NOTE | 2019-02-11 02:30 | NUR ---
ROUNDS: PATIENT RESTING QUITELY.IVF INFUSING. BED ALARM ON. CALL LIGHT WITHIN REACH.
--- NOTE | 2019-02-11 07:00 | NUR ---
CLOSING: ALL NEEDS WERE ATTENDED. NO ACUTE DISTRESS. MEDICATED FOR PAIN. VOIDED FREELY. VITAL SIGNS STABLE. AMBULATES WITH A STEADY GAIT. BLOOD SUGAR 115MG/DL. WILL ENDORSE CARE TO AM RN .
[2019-02-11] MEDS: LEVOTHYROXINE SODIUM 0.025 MG TABLET PO SCH (07:02)
[2019-02-11 07:28] LABS: CREATININE 0.85 mg/dL (0.55-1.30); FREE T4 (FREE THYROXINE) 0.5 ng/dL (0.6-1.6); POTASSIUM 3.8 mmol/L (3.5-5.1); THYROID STIMULATING HORMONE 2.2 uIu/mL (0.34-4.82)
[2019-02-11 07:55] LABS: WHITE BLOOD COUNT (AUTO) 16.5 K/uL (4.8-10.8)
[2019-02-11 07:56] LABS: HEMATOCRIT 38.4 % (36-48); HEMOGLOBIN 12.4 g/dL (12.0-16.0); MEAN CORPUSCULAR HEMOGLOBIN 28 pg (27-31); MEAN CORPUSCULAR HGB CONC 32 % (32-36); MEAN CORPUSCULAR VOLUME 86 fL (79.0-98.0); MONOCYTES % (AUTO) 6.9 % (1.7-9.3); NEUTROPHILS % (AUTO) 71.5 % (40.0-70.0); PLATELET COUNT (AUTO) 548 K/uL (130-430); RED BLOOD CELL COUNT(AUTO) 4.44 MIL/uL (4.2-6.2); RED CELL DISTRIBUTION WIDTH 15.5 % (9.0-15.0)
[2019-02-11 07:57] LABS: BASOPHILS # (AUTO) 0.2 K/uL (0.0-0.2); EOSINOPHILS # (AUTO) 0.1 K/uL (0.0-0.4); EOSINOPHILS % (AUTO) 0.6 % (0.0-4.0); LYMPHOCYTES # (AUTO) 3.3 K/uL (1.0-5.5); MONOCYTES # (AUTO) 1.1 K/uL (0.0-1.0); NEUTROPHILS # (AUTO) 11.8 K/uL (1.8-7.7)
[2019-02-11 08:00] VITALS: BP_SYST 125
--- NOTE | 2019-02-11 08:00 | NUR ---
Note Pt sitting up in bed eating her breakfast. No SOB/resp distress or pain/discomfort noted at this time. IV in right AC intact and patent and infusing IVF's at this time. No needs noted at this time. Call light within reach.
[2019-02-11] MEDS: AMITRIPTYLINE HCL 25 MG TABLET (ELAVIL) PO SCH ×3 (08:14→21:58)
[2019-02-11] MEDS: QUEtiapine FUMARATE 25 MG TABLET PO SCH ×2 (08:14→21:58)
[2019-02-11] MEDS: OMEPRAZOLE 20 MG CAPSULE.DR (PriLOSEC) PO SCH (08:14)
[2019-02-11] MEDS: CARISOPRODOL 350 MG TABLET PO SCH ×2 (08:15→21:58)
[2019-02-11] MEDS: PARoxetine HCL 20 MG TABLET PO SCH (08:15)
[2019-02-11] MEDS: VANCOMYCIN HCL 1,750 MG in NS 500 ML IV SCH ×2 (09:14→23:20)
--- NOTE | 2019-02-11 11:28 | NUR ---
CONSULT ID SEPSIS DR MANN [phone] S/W [facility]
--- NOTE | 2019-02-11 12:00 | NUR ---
Note Dr Severino on the floor to do assessment, pt not on the floor has gone OOB and room to smoke on side of hospital with MEERA Guerrero. Pt now came back to floor and resting in bed. Pt was notified that she can not go outside to smoke anymore as she is scheduled to have surgery this evening. No needs noted at this time. Call light within reach.
[2019-02-11 12:21] VITALS: BP_SYST 126
[2019-02-11] MEDS: HYDROcodone/ACETAMIN 10-325 MG TAB PO PRN ×2 (14:46→23:21)
--- NOTE | 2019-02-11 16:00 | NUR ---
Note Pt resting in bed. No SOB/resp distress or pain/discomfort noted at this time. IV in right AC intact and patent infusing IVF's well. Pt waiting for surgery to come pick her up. No needs noted at this time. Call light within reach.
[2019-02-11 16:24] VITALS: BP_SYST 122
[2019-02-11] MEDS ORDERED: CLINDAMYCIN 600 MG in D5W 50 ML IV SCH (18:00)
--- NOTE | 2019-02-11 18:10 | NUR ---
Note Pt resting in bed. CHG bath done. Pt resting in bed waiting for OR to pick her up for surgery. No needs noted at this time. Chart ready for surgery at nurses' station. Call light within reach. Addendum: 02/11/19 at 1835 by Anu Lomas RN Pt off the floor via bed to OR for surgery. Pt's chart on the bed. Pt was checked on q1' and PRN for needs and care.
[2019-02-11] MEDS ORDERED: POLYMYXIN 500,000/BACIT.10,000 UNITS in NS IRR 1 L IR ONE (18:48)
[2019-02-11] MEDS ORDERED: fentaNYL CITRATE/PF 100 MCG/2 ML AMP IVP PRN ×2 (19:15)
[2019-02-11] MEDS ORDERED: ONDANSETRON HCL 4 MG/2 ML VIAL IVP PRN (19:15)
--- NOTE | 2019-02-11 19:15 | NUR ---
OPENING NOTE RECEIVED CARE OF PT. PT IS CURRENTLY OFF UNIT FOR SURGERY.
[2019-02-11] MEDS ORDERED: fentaNYL CITRATE/PF 100 MCG/2 ML AMP ONE (19:58)
[2019-02-11 20:20] VITALS: BP_SYST 129
--- NOTE | 2019-02-11 20:20 | NUR ---
RETURNED TO UNIT RECEIVED REPORT FROM OR NURSE. PT AAOX4, NO S/S OF ACUTE DISTRESS, BREATHING IS UNLABORED TO ROOM AIR. PT IS ASKING WHEN SHE CAN GO OUTSIDE TO SMOKE, PT APPEARS AGITATED AT THIS TIME. PT EDUCATED REGARDING SAFETY PRECAUTIONS AND THE NEED TO MONITOR HER CLOSELY AFTER SURGERY. PT ALSO EDUCATED REGARDING NEGATIVE EFFECTS OF SMOKING AND HER DISEASE PROCESSL. PT IS WALKING AROUND THE ROOM WITH A STEADY GAIT, PT'S IS AT BEDSIDE. SAFETY PRECAUTIONS IN PLACE. WILL MONITOR.
[2019-02-11] MEDS ORDERED: IPRATROPIUM/ALBUTEROL SULFATE 3 ML AMPUL.NEB (DUONEB) INH PRN (22:00)
--- NOTE | 2019-02-11 22:00 | NUR ---
PAIN/MORPHINE PT REPORTING SEVERE PAIN. MORPHINE 4MG IVP ADMINISTERED. PT EDUCATED REGARDING MEDICATION AND POTENTIAL SIDE EFFECTS. PT ENCOURAGED TO CALL FOR ASSISTANCE. SAFETY MAINTAINED. WILL MONITOR.
--- NOTE | 2019-02-11 22:07 | NUR ---
ACCUCHECK BLOOD SUGAR OF 138. NO INSULIN COVERAGE PER SLIDING SCALE.
--- NOTE | 2019-02-11 23:21 | NUR ---
PAIN/NORCO ADMINISTERED PT REPORTING MODERATE PAIN. NORCO 10-325 MG PO ADMINISTERED. PT EDUCATED REGARDING MEDICATIONS AND POTENTIAL SIDE EFFECTS. PT VERBALIZED UNDERSTANDING. SAFETY MAINTAINED. WILL MONITOR.
[2019-02-11] MEDS: PROMETHAZINE 6.25 MG/ CODEINE 10 MG/ 5 ML PO PRN (23:27)
--- NOTE | 2019-02-11 23:37 | NUR ---
COUGH PT REPORTING COUGH. PHERGAN 6.25MG/CODEINE 10MG ADMINISTERED PO. PT EDUCATED REGARDING MEDICATION AND POTENTIAL SIDE EFFECTS. PT VERBALIZED UNDERSTANDING. WILL MONITOR.
[2019-02-12 00:50] VITALS: BP_SYST 154
[2019-02-12 01:18] VITALS: BP_SYST 154
[2019-02-12] MEDS: MORPHINE 4 MG/ML INJ. SYRINGE IVP PRN ×4 (02:11→15:22)
[2019-02-12] MEDS: PROMETHAZINE 6.25 MG/ CODEINE 10 MG/ 5 ML PO PRN ×4 (03:43→17:08)
[2019-02-12] MEDS: HYDROcodone/ACETAMIN 10-325 MG TAB PO PRN ×4 (03:44→17:09)
--- NOTE | 2019-02-12 04:45 | NUR ---
SLEEPING PT SLEEPING IN BED WITH EYES CLOSED, A SNORE CAN BE HEARD, VISIBLE SYMMETRICAL RISE AND FALL OF CHEST WITH BREATHING UNLABORED TO ROOM AIR. NO S/S OF ACUTE DISTRESS, PT APPEARS COMFORTABLE. IVF INFUSING AT ORDERED RATE, NO INFILTRATION AT IV SITE. SAFETY PRECAUTIONS MAINTAINED. WILL MONITOR.
[2019-02-12] MEDS: LEVOTHYROXINE SODIUM 0.025 MG TABLET PO SCH (06:23)
[2019-02-12] MEDS: LR 1,000 ML IV SCH ×2 (06:28→12:45)
--- NOTE | 2019-02-12 06:30 | NUR ---
ACCUCHECK BLOOD SUGAR OF 134. NO INSULIN COVERAGE PER SLIDING SCALE.
--- NOTE | 2019-02-12 06:53 | NUR ---
Nutrition Update Juice Scale 18 noted. Pt admitted for abd pain Diet: low fat diet BMI: 46.2 kg/m2 RD to follow per nutrition care standards.
--- NOTE | 2019-02-12 06:53 | NUR ---
CLOSING NOTE PT RESTING IN BED WATCHING TELEVISION, BREATHING IS UNLABORED TO ROOM AIR, IVF INFUSING AT ORDERED RATE. ALL NEEDS MET DURING SHIFT. SAFETY MAINTAINED. WILL ENDORSE CARE TO DAY SHIFT RN.
[2019-02-12] MEDS: IPRATROPIUM/ALBUTEROL SULFATE 3 ML AMPUL.NEB (DUONEB) INH SCH ×2 (07:04→11:12)
[2019-02-12 07:29] VITALS: BP_SYST 122
[2019-02-12 07:38] LABS: CALCIUM 8.5 mg/dL (8.4-11.0); CREATININE 0.85 mg/dL (0.55-1.30); POTASSIUM 4.2 mmol/L (3.5-5.1)
[2019-02-12 07:39] LABS: CREATININE 0.81 mg/dL (0.55-1.30); POTASSIUM 4.5 mmol/L (3.5-5.1)
[2019-02-12 07:47] LABS: HEMATOCRIT 37.7 % (36-48); HEMOGLOBIN 12.1 g/dL (12.0-16.0); MEAN CORPUSCULAR HEMOGLOBIN 28 pg (27-31); MEAN CORPUSCULAR VOLUME 86 fL (79.0-98.0); RED BLOOD CELL COUNT(AUTO) 4.36 MIL/uL (4.2-6.2); WHITE BLOOD COUNT (AUTO) 14.1 K/uL (4.8-10.8)
[2019-02-12 07:48] LABS: BASOPHILS % (AUTO) 0.8 % (0.0-2.0); EOSINOPHILS % (AUTO) 1.3 % (0.0-4.0); LYMPHOCYTES # (AUTO) 2.3 K/uL (1.0-5.5); LYMPHOCYTES % (AUTO) 16.5 % (20.5-51.5); MEAN CORPUSCULAR HGB CONC 32 % (32-36); MONOCYTES # (AUTO) 0.8 K/uL (0.0-1.0); MONOCYTES % (AUTO) 5.9 % (1.7-9.3); NEUTROPHILS # (AUTO) 10.6 K/uL (1.8-7.7); NEUTROPHILS % (AUTO) 75.5 % (40.0-70.0); PLATELET COUNT (AUTO) 523 K/uL (130-430); RED CELL DISTRIBUTION WIDTH 15.6 % (9.0-15.0)
[2019-02-12 07:49] LABS: BASOPHILS # (AUTO) 0.1 K/uL (0.0-0.2); EOSINOPHILS # (AUTO) 0.2 K/uL (0.0-0.4)
--- NOTE | 2019-02-12 08:00 | NUR ---
Note Pt sitting up in bed eating her breakfast. LLQ (abdomen) dressing CDI at this time with PILI drain. No SOB/resp distress or severe abdominal incision pain/discomfort noted at this time. Abdominal binder on at this time. IV in right hand intact and patent infusing IVF's well at this time. No needs noted. Call light within reach.
[2019-02-12] MEDS: QUEtiapine FUMARATE 25 MG TABLET PO SCH (08:14)
[2019-02-12] MEDS: AMITRIPTYLINE HCL 25 MG TABLET (ELAVIL) PO SCH ×2 (08:14→15:25)
[2019-02-12] MEDS: CARISOPRODOL 350 MG TABLET PO SCH (08:14)
[2019-02-12] MEDS: PARoxetine HCL 20 MG TABLET PO SCH (08:14)
[2019-02-12] MEDS: OMEPRAZOLE 20 MG CAPSULE.DR (PriLOSEC) PO SCH (08:14)
[2019-02-12 08:29] LABS: CALCIUM 8.8 mg/dL (8.4-10.2)
[2019-02-12] MEDS: VANCOMYCIN HCL 1,750 MG in NS 500 ML IV SCH (09:32)
[2019-02-12] MEDS ORDERED: CLIN300C11 PO (10:37)
[2019-02-12] MEDS ORDERED: LEVO750T45 PO (10:37)
[2019-02-12] MEDS ORDERED: L.RH1CAP PO (10:38)
[2019-02-12 10:48] VITALS: BP_SYST 120
[2019-02-12 12:00] VITALS: BP_SYST 101
--- NOTE | 2019-02-12 12:00 | NUR ---
Note Pt has been ambulating in the hallway with IV pole. Pt had her CXR in Radiology dept via wheelchair this morning. Pt has been taking her pain medication and Phenergan syrup every 4' as scheduled and requested all shift. Pt was to go home at noon, but her family member unable to pick pt up at this time. Pt's to pick pt up after work at 7pm. No needs noted at this time. Call light within reach.
--- NOTE | 2019-02-12 14:15 | NUR ---
Dietitian Recommendations *Recommend [facility] diet w/ Rolando BID to promote glucose regulation and wound healing. (Rolando provides an additional 180 kcal and 5g PRO.) Please see Nutritional Assessment for details. ANUEL, RD
--- NOTE | 2019-02-12 14:40 | NUR ---
Note Pt resting in bed with her cellphone in hand. No needs noted at this time. Pain tolerable at this time. Pt states she knows haw to empty her PILI drain and record amount from previous hospitalizations and surgeries for the same surgery. Call light within reach.
--- NOTE | 2019-02-12 16:00 | NUR ---
Note Pt was dressed in street clothes and packed all her belongings. Pt's LLQ dressing CDI with PILI drain (minimal drainage). IV in right hand was dc'd - site benign. No swelling/redness/bleeding/drainage noted at this time. No SOB/resp distress or severe pain/discomfort noted at this time. Pt has been taking pain medications q4' - as scheduled/requested. No needs noted at this time. Call light within reach.
--- NOTE | 2019-02-12 17:10 | NUR ---
NOTE Pt was checked on q1' and PRN all shift for needs and care. Pt was given discharge instructions and prescription. Questions/concerns were answered. No SOB/resp distress or severe abdominal incision pain noted. Abdominal dressing CDI with PILI drain. Pt has abdominal binder on. Pt stable Pt off the floor with all her belongings and discharge paperwork. Pt dressed in street clothes all shift.
== END 2019-02-12 17:15 | disposition home or self-care (01) | DRG 710 ==
LOC: SED 20:07 → SMU 22:35
PROVIDERS: ADMIT Internal Medicine; ATTEND Internal Medicine
PROC: 0J980ZZ Drainage of Abdomen Subcutaneous Tissue and Fascia, Open Approach (ICD-10-PCS; principal; 2019-02-11 18:00)
DX: A41.9 Sepsis, unspecified organism (principal); E11.40 Type 2 diabetes mellitus with diabetic neuropathy, unspecified; L03.311 Cellulitis of abdominal wall; T81.41XA Infection following a procedure, superficial incisional surgical site, initial encounter; L76.34 Postprocedural seroma of skin and subcutaneous tissue following other procedure; F32.9 Major depressive disorder, single episode, unspecified; E03.9 Hypothyroidism, unspecified; N39.0 Urinary tract infection, site not specified; E66.9 Obesity, unspecified; Y83.8 Other surgical procedures as the cause of abnormal reaction of the patient, or of later complication, without mention of misadventure at the time of the procedure; G89.29 Other chronic pain; B95.62 Methicillin resistant Staphylococcus aureus infection as the cause of diseases classified elsewhere; F41.9 Anxiety disorder, unspecified; M19.90 Unspecified osteoarthritis, unspecified site; Z68.42 Body mass index [BMI] 45.0-49.9, adult; Z90.710 Acquired absence of both cervix and uterus; Z88.6 Allergy status to analgesic agent; Z88.1 Allergy status to other antibiotic agents; Y92.89 Other specified places as the place of occurrence of the external cause
CPT/HCPCS: 36415; 71045; 71046-TC; 80048; 80053; 80069; 81000-TC; 82962; 83036; 83605; 84439; 84443-TC; 85025; 85610-TC; 85730-TC; 87040-TC; 87070; 87070-TC; 87075-TC; 87081; 87086; 87101; 93005; 94010; 94640; 96365; 96368; 96375; 96376; 99285; J1815; J1956; J2250; J2270; J2704; J3010; J3370; J3490; J7040; J7050; J7060; J7120; J7620

== ENCOUNTER 2019-02-26 19:38 | Inpatient (IN) | payer MEDICAID ==
[~2019-02-26] VITALS: Ht 147.3 cm; Wt 97.5 kg
[~2019-02-26 19:38] MED LIST changes: +AMIT25TA9 PO; +CARI350T27 PO; -CIPR-211 PO; +CLIN300C11 PO; +L.RH1CAP PO; +LEVO750T45 PO; -LOP600 PO; -LR 1,000 ML IV.SOLN IV ONE; -MIDAZOLAM HCL 5 MG/5 ML VIAL IVP ONE; -NEU400 PO; -NS IRRIG SOLN 1000 ML IR ONE; -PERC10 GT; -PROPOFOL 200MG/ 20ML VIAL (DIPRIVAN) IV ONE; +SER25 PO; -TRELEGY PO; -fentaNYL CITRATE/PF 100 MCG/2 ML AMP IVP ONE
[2019-02-26 20:02] VITALS: BP_SYST 124
[2019-02-26] MEDS ORDERED: IPRATROPIUM BROM 0.5 MG/2.5 ML VIAL.NEB (ATROVENT) IH ONE (23:00)
[2019-02-26] MEDS ORDERED: LevALBUTEROL HCL 1.25 MG/0.5 ML *CONC.* VIAL.NEB (XOPENEX CONC.) INH ONE (23:00)
[2019-02-26 23:13] LABS: BASOPHILS # (AUTO) 0.1 K/uL (0.0-0.2); BASOPHILS % (AUTO) 0.8 % (0.0-2.0); EOSINOPHILS # (AUTO) 0.3 K/uL (0.0-0.4); EOSINOPHILS % (AUTO) 2.3 % (0.0-4.0); HEMATOCRIT 37.4 % (36-48); HEMOGLOBIN 12.2 g/dL (12.0-16.0); LYMPHOCYTES # (AUTO) 3.4 K/uL (1.0-5.5); LYMPHOCYTES % (AUTO) 29.7 % (20.5-51.5); MEAN CORPUSCULAR HEMOGLOBIN 28 pg (27-31); MEAN CORPUSCULAR HGB CONC 33 % (32-36); MEAN CORPUSCULAR VOLUME 87 fL (79.0-98.0); MONOCYTES # (AUTO) 0.8 K/uL (0.0-1.0); MONOCYTES % (AUTO) 6.9 % (1.7-9.3); NEUTROPHILS # (AUTO) 6.9 K/uL (1.8-7.7); NEUTROPHILS % (AUTO) 60.3 % (40.0-70.0); PLATELET COUNT (AUTO) 524 K/uL (130-430); RED BLOOD CELL COUNT(AUTO) 4.32 MIL/uL (4.2-6.2); RED CELL DISTRIBUTION WIDTH 15.7 % (9.0-15.0); WHITE BLOOD COUNT (AUTO) 11.4 K/uL (4.8-10.8)
[2019-02-26 23:24] LABS: CALCIUM 8.7 mg/dL (8.4-11.0); CREATININE 0.84 mg/dL (0.55-1.30); POTASSIUM 3.8 mmol/L (3.5-5.1)
[2019-02-26 23:29] LABS: ALBUMIN 3.8 g/dL (3.4-4.8); TOTAL BILIRUBIN 0.3 mg/dL (0.0-1.0)
[2019-02-27] MEDS ORDERED: NACL 0.9% 1,000 ML IV ONE (00:45)
[2019-02-27] MEDS ORDERED: DIPHENHYDRAMINE INJ 50 MG/ML VIAL IVP ONE (01:00)
[2019-02-27] MEDS ORDERED: MORPHINE 4 MG/ML INJ. SYRINGE IVP ONE ×2 (01:00→02:30)
[2019-02-27] MEDS ORDERED: PROCHLORPERAZINE EDISYLATE 10 MG/2 ML VIAL IVP ONE (02:30)
[2019-02-27 02:50] VITALS: BP_SYST 118
[2019-02-27] MEDS ORDERED: HYDROcodone/ACETAMIN 5-325 MG TAB (NORCO/ VICODIN) PO PRN (03:30)
[2019-02-27] MEDS ORDERED: ACETAMINOPHEN 325 MG TABLET PO PRN (03:30)
[2019-02-27] MEDS: HYDROcodone/ACETAMIN 10-325 MG TAB PO PRN ×3 (03:43→16:13)
[2019-02-27] MEDS ORDERED: VIS25 PO (03:53)
[2019-02-27] MEDS ORDERED: LORazepam 2 MG/ML VIAL IVP PRN (05:30)
[2019-02-27] MEDS ORDERED: ONDANSETRON HCL 4 MG/2 ML VIAL IVP PRN (05:30)
[2019-02-27] MEDS ORDERED: NORMAL SALINE 5 ML DISP.SYRIN IVF SCH (06:00)
[2019-02-27] MEDS: NORMAL SALINE 5 ML DISP.SYRIN IVF SCH ×3 (06:13→22:02)
[2019-02-27] MEDS: LEVOTHYROXINE SODIUM 0.025 MG TABLET PO SCH (06:13)
[2019-02-27] MEDS: OMEPRAZOLE 20 MG CAPSULE.DR (PriLOSEC) PO SCH (06:13)
[2019-02-27 07:11] LABS: CALCIUM 8.2 mg/dL (8.4-11.0); CREATININE 0.68 mg/dL (0.55-1.30); POTASSIUM 3.5 mmol/L (3.5-5.1)
[2019-02-27 07:15] LABS: ALBUMIN 3.2 g/dL (3.4-4.8); BASOPHILS # (AUTO) 0.1 K/uL (0.0-0.2); BASOPHILS % (AUTO) 1.4 % (0.0-2.0); C-REACTIVE PROTEIN QUANT 2.9 mg/dL (0-0.5); EOSINOPHILS # (AUTO) 0.2 K/uL (0.0-0.4); EOSINOPHILS % (AUTO) 2.7 % (0.0-4.0); HEMATOCRIT 34.4 % (36-48); HEMOGLOBIN 11.3 g/dL (12.0-16.0); LYMPHOCYTES # (AUTO) 2.7 K/uL (1.0-5.5); LYMPHOCYTES % (AUTO) 30.2 % (20.5-51.5); MEAN CORPUSCULAR HEMOGLOBIN 28 pg (27-31); MEAN CORPUSCULAR HGB CONC 33 % (32-36); MEAN CORPUSCULAR VOLUME 87 fL (79.0-98.0); MONOCYTES # (AUTO) 0.6 K/uL (0.0-1.0); MONOCYTES % (AUTO) 7.1 % (1.7-9.3); NEUTROPHILS # (AUTO) 5.2 K/uL (1.8-7.7); NEUTROPHILS % (AUTO) 58.6 % (40.0-70.0); PLATELET COUNT (AUTO) 487 K/uL (130-430); RED BLOOD CELL COUNT(AUTO) 3.97 MIL/uL (4.2-6.2); RED CELL DISTRIBUTION WIDTH 15.9 % (9.0-15.0); TOTAL BILIRUBIN 0.3 mg/dL (0.0-1.0); WHITE BLOOD COUNT (AUTO) 8.9 K/uL (4.8-10.8)
[2019-02-27 08:06] VITALS: BP_SYST 100
[2019-02-27] MEDS: AMITRIPTYLINE HCL 25 MG TABLET (ELAVIL) PO SCH ×3 (09:06→20:12)
[2019-02-27] MEDS: PARoxetine HCL 20 MG TABLET PO SCH (09:06)
[2019-02-27] MEDS: CARISOPRODOL 350 MG TABLET PO SCH ×2 (09:07→20:12)
[2019-02-27] MEDS: QUEtiapine FUMARATE 25 MG TABLET PO SCH ×2 (09:07→21:55)
[2019-02-27 09:41] LABS: ERYTHROCYTE SEDIMENTATION RATE 36 MM/HR (0-20)
[2019-02-27 11:14] VITALS: BP_SYST 100
[2019-02-27] MEDS ORDERED: DOXYCYCLINE HYCLATE 100 MG in D5W 100 ML IV ONE (12:15)
[2019-02-27] MEDS: MORPHINE 4 MG/ML INJ. SYRINGE IVP PRN ×3 (13:51→21:58)
[2019-02-27 16:10] VITALS: BP_SYST 117
[2019-02-27] MEDS: DOXYCYCLINE HYCLATE 100 MG in D5W 100 ML IV SCH (20:12)
[2019-02-28] MEDS ORDERED: LEVOFLOXACIN 500 MG/D5W 100 ML IV SCH
[2019-02-28 00:32] VITALS: BP_SYST 91
[2019-02-28] MEDS: OMEPRAZOLE 20 MG CAPSULE.DR (PriLOSEC) PO SCH (06:04)
[2019-02-28] MEDS: NORMAL SALINE 5 ML DISP.SYRIN IVF SCH ×2 (06:04→15:13)
[2019-02-28] MEDS: LEVOTHYROXINE SODIUM 0.025 MG TABLET PO SCH (06:04)
[2019-02-28] MEDS: MORPHINE 4 MG/ML INJ. SYRINGE IVP PRN ×3 (06:23→15:23)
[2019-02-28 07:00] LABS: BASOPHILS % (AUTO) 0.4 % (0.0-2.0); EOSINOPHILS # (AUTO) 0.3 K/uL (0.0-0.4); EOSINOPHILS % (AUTO) 2.9 % (0.0-4.0); HEMATOCRIT 36.5 % (36-48); LYMPHOCYTES # (AUTO) 2.2 K/uL (1.0-5.5); LYMPHOCYTES % (AUTO) 20.8 % (20.5-51.5); MEAN CORPUSCULAR HEMOGLOBIN 29 pg (27-31); MEAN CORPUSCULAR HGB CONC 33 % (32-36); MEAN CORPUSCULAR VOLUME 87 fL (79.0-98.0); MONOCYTES # (AUTO) 0.6 K/uL (0.0-1.0); MONOCYTES % (AUTO) 5.4 % (1.7-9.3); NEUTROPHILS # (AUTO) 7.6 K/uL (1.8-7.7); NEUTROPHILS % (AUTO) 70.5 % (40.0-70.0); PLATELET COUNT (AUTO) 525 K/uL (130-430); RED BLOOD CELL COUNT(AUTO) 4.19 MIL/uL (4.2-6.2); WHITE BLOOD COUNT (AUTO) 10.8 K/uL (4.8-10.8)
[2019-02-28 07:29] LABS: ALBUMIN 3.4 g/dL (3.4-4.8); C-REACTIVE PROTEIN QUANT 2.8 mg/dL (0-0.5); CALCIUM 8.8 mg/dL (8.4-11.0); CREATININE 0.68 mg/dL (0.55-1.30); TOTAL BILIRUBIN 0.4 mg/dL (0.0-1.0)
[2019-02-28 08:00] VITALS: BP_SYST 105
[2019-02-28] MEDS: CARISOPRODOL 350 MG TABLET PO SCH (08:29)
[2019-02-28] MEDS: PARoxetine HCL 20 MG TABLET PO SCH (08:29)
[2019-02-28] MEDS: DOXYCYCLINE HYCLATE 100 MG in D5W 100 ML IV SCH (08:29)
[2019-02-28] MEDS: AMITRIPTYLINE HCL 25 MG TABLET (ELAVIL) PO SCH ×2 (08:29→15:20)
[2019-02-28] MEDS: QUEtiapine FUMARATE 25 MG TABLET PO SCH (08:30)
[2019-02-28 10:39] LABS: ERYTHROCYTE SEDIMENTATION RATE 42 MM/HR (0-20)
[2019-02-28 12:36] VITALS: BP_SYST 135
[2019-02-28] MEDS: HYDROcodone/ACETAMIN 10-325 MG TAB PO PRN (13:48)
[2019-02-28] MEDS ORDERED: DOXY-168 PO (15:36)
[2019-02-28 16:00] VITALS: BP_SYST 115
[2019-02-28 17:30] VITALS: BP_SYST 115
[2019-02-28 17:38] VITALS: BP_SYST 103
[2019-02-28] MEDS ORDERED: DOXY100T2 PO (18:00)
[2019-02-28] MEDS ORDERED: LEVO750T45 PO (18:00)
== END 2019-02-28 18:15 | disposition home or self-care (01) | DRG 720 ==
LOC: SED 19:38 → SMU 02-27 02:09
PROVIDERS: ADMIT Preventive Medicine Preventive Medicine/Occupational Environmental Medicine; ATTEND Preventive Medicine Preventive Medicine/Occupational Environmental Medicine
DX: A41.9 Sepsis, unspecified organism (principal); E87.2 Acidosis; J18.1 Lobar pneumonia, unspecified organism; J44.0 Chronic obstructive pulmonary disease with (acute) lower respiratory infection; E11.65 Type 2 diabetes mellitus with hyperglycemia; E88.09 Other disorders of plasma-protein metabolism, not elsewhere classified; G62.9 Polyneuropathy, unspecified; G89.29 Other chronic pain; E03.9 Hypothyroidism, unspecified; E66.9 Obesity, unspecified; F32.9 Major depressive disorder, single episode, unspecified; F41.9 Anxiety disorder, unspecified; K59.00 Constipation, unspecified; M19.90 Unspecified osteoarthritis, unspecified site; J45.909 Unspecified asthma, uncomplicated; Z72.0 Tobacco use; Z88.9 Allergy status to unspecified drugs, medicaments and biological substances; Z90.710 Acquired absence of both cervix and uterus; Z88.8 Allergy status to other drugs, medicaments and biological substances; Z88.1 Allergy status to other antibiotic agents; Z68.41 Body mass index [BMI] 40.0-44.9, adult
CPT/HCPCS: 36415; 71045; 71046-TC; 74018; 80053; 83605; 85025; 85651-TC; 86140; 86738; 87040-TC; 87070-TC; 87081; 87205-TC; 94640; 96365; 96375; 96376; 99285; J0780; J1200; J1956; J2270; J3490; J7030; J7060; J7612

== ENCOUNTER 2019-04-04 20:12 | Inpatient (IN) | payer MEDICAID ==
[~2019-04-04] VITALS: Ht 147.3 cm; Wt 95.4 kg
[~2019-04-04 20:12] MED LIST changes: -CLIN300C11 PO; +DOXY100T2 PO; -L.RH1CAP PO; +VIS25 PO
[2019-04-04 20:36] VITALS: BP_SYST 143
[2019-04-04] MEDS ORDERED: MORPHINE 4 MG/ML INJ. SYRINGE IVP ONE ×2 (21:15→22:00)
[2019-04-04] MEDS ORDERED: ONDANSETRON HCL 4 MG/2 ML VIAL IVP ONE (21:15)
[2019-04-04 22:42] LABS: BASOPHILS # (AUTO) 0.1 K/uL (0.0-0.2); BASOPHILS % (AUTO) 0.7 % (0.0-2.0); EOSINOPHILS # (AUTO) 0.3 K/uL (0.0-0.4); EOSINOPHILS % (AUTO) 1.7 % (0.0-4.0); HEMATOCRIT 39.2 % (36-48); HEMOGLOBIN 12.9 g/dL (12.0-16.0); LYMPHOCYTES # (AUTO) 3.7 K/uL (1.0-5.5); LYMPHOCYTES % (AUTO) 24.4 % (20.5-51.5); MEAN CORPUSCULAR HEMOGLOBIN 28 pg (27-31); MEAN CORPUSCULAR HGB CONC 33 % (32-36); MEAN CORPUSCULAR VOLUME 85 fL (79.0-98.0); MONOCYTES # (AUTO) 1.1 K/uL (0.0-1.0); MONOCYTES % (AUTO) 7.3 % (1.7-9.3); NEUTROPHILS # (AUTO) 9.9 K/uL (1.8-7.7); NEUTROPHILS % (AUTO) 65.9 % (40.0-70.0); PLATELET COUNT (AUTO) 523 K/uL (130-430); RED BLOOD CELL COUNT(AUTO) 4.62 MIL/uL (4.2-6.2); RED CELL DISTRIBUTION WIDTH 15.9 % (9.0-15.0); WHITE BLOOD COUNT (AUTO) 15.1 K/uL (4.8-10.8)
[2019-04-04 22:46] LABS: CALCIUM 9.2 mg/dL (8.4-11.0); CREATININE 0.88 mg/dL (0.55-1.30)
[2019-04-04 22:49] LABS: ALBUMIN 3.9 g/dL (3.4-4.8)
[2019-04-04] MEDS ORDERED: fentaNYL CITRATE/PF 100 MCG/2 ML AMP IVP ONE (23:00)
[2019-04-04] MEDS ORDERED: NACL 0.9% 1,000 ML IV ONE (23:00)
[2019-04-04 23:09] LABS: TOTAL BILIRUBIN 0.2 mg/dL (0.0-1.0)
[2019-04-05] VITALS (7 sets, daily range): BP systolic 95–108
[2019-04-05] MEDS ORDERED: AMIT25TA9 PO (00:07)
[2019-04-05] MEDS ORDERED: PERC10 GT (00:07)
[2019-04-05] MEDS ORDERED: SOM350 PO (00:07)
[2019-04-05] MEDS ORDERED: VIS50 PO (00:07)
[2019-04-05] MEDS ORDERED: PARO-41 PO (00:07)
[2019-04-05 00:08] LABS: BILIRUBIN,URINE NEGATIVE (NEGATIVE); CLARITY/URINE CLEAR (CLEAR); COLOR,URINE YELLOW (YELLOW); GLUCOSE,URINE NEGATIVE (NEGATIVE); KETONES,URINE NEGATIVE (NEGATIVE); LEUKOCYTE ESTERASE ,URINE 2+ (NEGATIVE); NITRITE, URINE NEGATIVE (NEGATIVE); PH,URINE 5.5 (5.0-8.0); PROTEIN URINE NEGATIVE (NEGATIVE); UROBILINOGEN,URINE 0.2 (0.2-1.0)
[2019-04-05 00:09] LABS: BLOOD, URINE TRACE (NEGATIVE)
[2019-04-05 00:12] LABS: BACTERIA,URINE FEW /HPF (None Seen)
[2019-04-05] MEDS ORDERED: NS 1000 ML IV.SOLN IV ONE (00:30)
[2019-04-05] MEDS ORDERED: fentaNYL CITRATE/PF 100 MCG/2 ML AMP IVP ONE (00:45)
[2019-04-05] MEDS: NACL 0.9% 1,000 ML IV SCH ×2 (01:00→03:13)
[2019-04-05] MEDS: MORPHINE 2 MG/ML INJ. SYRINGE IVP PRN ×3 (02:54→14:46)
[2019-04-05] MEDS ORDERED: NACL 0.9% 1,000 ML IV SCH (06:20)
[2019-04-05] MEDS ORDERED: ONDANSETRON HCL 4 MG/2 ML VIAL IVP PRN (06:30)
[2019-04-05] MEDS ORDERED: ALBUTEROL SULFATE 0.083% 2.5 MG/3 ML VIAL.NEB INH PRN (06:30)
[2019-04-05] MEDS ORDERED: ACETAMINOPHEN 325 MG TABLET PO PRN (06:30)
[2019-04-05] MEDS ORDERED: metroNIDAZOLE 500 mg/NS 100 ML IV ONE (07:30)
[2019-04-05 08:02] LABS: BASOPHILS # (AUTO) 0.1 K/uL (0.0-0.2); BASOPHILS % (AUTO) 1.1 % (0.0-2.0); EOSINOPHILS # (AUTO) 0.2 K/uL (0.0-0.4); HEMATOCRIT 37.1 % (36-48); HEMOGLOBIN 12.2 g/dL (12.0-16.0); LYMPHOCYTES # (AUTO) 2.3 K/uL (1.0-5.5); LYMPHOCYTES % (AUTO) 23.6 % (20.5-51.5); MEAN CORPUSCULAR HEMOGLOBIN 28 pg (27-31); MEAN CORPUSCULAR HGB CONC 33 % (32-36); MEAN CORPUSCULAR VOLUME 85 fL (79.0-98.0); MONOCYTES # (AUTO) 0.8 K/uL (0.0-1.0); MONOCYTES % (AUTO) 7.9 % (1.7-9.3); NEUTROPHILS # (AUTO) 6.3 K/uL (1.8-7.7); NEUTROPHILS % (AUTO) 65.4 % (40.0-70.0); PLATELET COUNT (AUTO) 476 K/uL (130-430); RED BLOOD CELL COUNT(AUTO) 4.38 MIL/uL (4.2-6.2); RED CELL DISTRIBUTION WIDTH 15.9 % (9.0-15.0); WHITE BLOOD COUNT (AUTO) 9.6 K/uL (4.8-10.8)
[2019-04-05 08:16] LABS: CREATININE 0.78 mg/dL (0.55-1.30); POTASSIUM 4.1 mmol/L (3.5-5.1)
[2019-04-05 08:22] LABS: ALBUMIN 3.3 g/dL (3.4-4.8); TOTAL BILIRUBIN 0.1 mg/dL (0.0-1.0)
[2019-04-05] MEDS ORDERED: LEVOFLOXACIN 500 MG/D5W 100 ML IV SCH ×2 (09:00→21:00)
[2019-04-05] MEDS ORDERED: metroNIDAZOLE 500 mg/NS 100 ML IV SCH (14:00)
[2019-04-05] MEDS ORDERED: BISACODYL 5 MG TABLET.DR (DULCOLAX) PO ONE (16:30)
[2019-04-06] MEDS ORDERED: PANTOPRAZOLE SODIUM 40 MG/VIAL (PROTONIX) IVP SCH (09:00)
== END 2019-04-05 17:25 | disposition home or self-care (01) | DRG 254 ==
LOC: SED 20:12 → SMU 04-05 00:13
PROVIDERS: ADMIT Internal Medicine; ATTEND Internal Medicine
DX: K40.90 Unilateral inguinal hernia, without obstruction or gangrene, not specified as recurrent (principal); E66.01 Morbid (severe) obesity due to excess calories; F32.9 Major depressive disorder, single episode, unspecified; J44.9 Chronic obstructive pulmonary disease, unspecified; M19.90 Unspecified osteoarthritis, unspecified site; G89.29 Other chronic pain; M54.9 Dorsalgia, unspecified; N39.0 Urinary tract infection, site not specified; E11.9 Type 2 diabetes mellitus without complications; K43.9 Ventral hernia without obstruction or gangrene; E03.9 Hypothyroidism, unspecified; Z88.1 Allergy status to other antibiotic agents; Z79.899 Other long term (current) drug therapy; Z88.6 Allergy status to analgesic agent; Z88.8 Allergy status to other drugs, medicaments and biological substances; Z90.710 Acquired absence of both cervix and uterus; Z71.6 Tobacco abuse counseling; Z68.41 Body mass index [BMI] 40.0-44.9, adult
CPT/HCPCS: 36415; 80053; 81000-TC; 83605; 85025; 87040-TC; 87086; 96365; 96375; 96376; 99285; J1956; J2270; J2405; J3010; J3490; J7030